=== PATIENT | female | born 1965 | race African-American/Black ===

== ENCOUNTER 2022-08-04 23:34 | Emergency (ER) | payer OTHER, SELFPAY ==
--- NOTE | ~2022-08-04 | CT_ITS ---
CT Abdomen and Pelvis with contrast. History: Coffee ground emesis. Spiral CT of the abdomen and pelvis was performed after the administration of intravenous contrast. 9 5 cc of Omnipaque 350 was administered intravenously without complication. Dose reduction technique w as used on this scan by utilizing automated exposure control and iterative reconstruction technique. The dose-length product (DLP) was 289.60 mGy-cm. Findings: Scans through the lung bases demonstrate mild atelectatic change. The liver, spleen, pancreas, and adrenal gland are within normal limits. Calcified gallstones are pre sent. Suspected patchy areas of decreased renal parenchymal enhancement bilaterally, suspicious for p yelonephritis. No evidence of aortic aneurysm. No lymphadenopathy is seen. There is no evidence of bowel obstruction. There is no evidence to suggest acute appendicitis or dive rticulitis. Images through the pelvis were performed. Urinary bladder unremarkable. DESKTOP SUPPORT CONSULTANT shunt catheter present mul tiple uterine fibroids are present, including an exophytic left-sided fibroid measuring 4.7 cm in gina meter.. No ascites is seen. Impression: Suspected bilateral pyelonephritis, versus possibly streak artifact related to patient's arms. Correl ate clinically and with urinalysis. Cholelithiasis. Multiple uterine fibroids. Reviewed, dictated and finalized at location M. RIOR DECORATOR Impression: Suspected bilateral pyelonephritis, versus possibly streak artifact related to patient's arms. Correlate clinically and with urinalysis. Cholelithiasis. Multiple uterine fibroids.
--- NOTE | ~2022-08-04 | XR_ITS ---
Portable chest x-ray Comparison: None Clinical History: Weakness Findings: UNDERWATER HUNTER TRAPPER shunt in place. Lungs are clear, without focal consolidation or pleural effusion. Card iomediastinal silhouette is unremarkable, with pacemaker device. Bones and soft tissues are unremarka ble. Impression: Clear lungs. UNDERWATER HUNTER TRAPPER shunt and pacemaker device. Reviewed, dictated and finalized at location . R FILLER Impression: Clear lungs. UNDERWATER HUNTER TRAPPER shunt and pacemaker device.
--- NOTE | ~2022-08-04 | CT_ITS ---
CT head without contrast Indication: Confusion Technique: Serial scans were obtained through the brain without the administration of contrast. Dose reduction technique was used on this scan by utilizing automated exposure control and iterative recon struction technique. The dose-length product (DLP) was 681.00 mGy-cm. Findings: There is no evidence of intracranial hemorrhage, mass lesion, or acute infarct. There is di ffuse ventricular system dilatation, with left ventriculostomy shunt catheter entering via left parie damir ruby hole. Multiple additional craniotomy defects are present. There is encephalomalacia of the r ight temporal lobe and in the bilateral cerebellar hemispheres medially. Additional probable focal en cephalomalacia in the right frontal lobe. There is a peripherally ossified area of central lucency in the left frontal region, subjacent to craniotomy defect. There is a 1.8 x 1.2 cm mildly hyperdense masslike area somewhat along the falx cerebri superiorly (a xial image 48). There is an additional 0.6 cm hyperdense mass along the left parietal inner table (ax ial image 42). There is amorphous hyperdensity possibly along the right falx tentorium measuring 2.0 x 1.2 cm (axial image 24). There are extensive low signal areas throughout the periventricular white matter bilaterally. There is no evidence of midline shift. The visualized paranasal sinuses and mas toid air cells are clear. Impression: Multiple hyperdense masses or areas, as detailed above, possibly extra-axial. Findings could reflect multiple meningiomas. Areas of hemorrhage or other mass lesions are not completely excluded. Pre and postcontrast MR advised to better evaluate. Correlation with relevant clinical history would also be useful, as there is evidence of multiple prior brain surgeries. Areas of presumed postsurgical encephalomalacia, as detailed above, with multiple craniotomy defects. Diffuse ventricular system dilatation with ventriculostomy shunt catheter. Probable chronic white matter changes, as above. Reviewed, dictated and finalized at location M. CTOR OF MUSIC THERAPY Impression: Multiple hyperdense masses or areas, as detailed above, possibly extra-axial. F indings could reflect multiple meningiomas. Areas of hemorrhage or other mass l esions are not completely excluded. Pre and postcontrast MR advised to better e valuate. Correlation with relevant clinical history would also be useful, as th ere is evidence of multiple prior brain surgeries. Areas of presumed postsurgical encephalomalacia, as detailed above, with multip le craniotomy defects. Diffuse ventricular system dilatation with ventriculostomy shunt catheter. Probable chronic white matter changes, as above.
[2022-08-04 23:35] VITALS: BP 138/73; PULSE 85; RESP 24; TEMP 36.8; O2SAT 100
--- NOTE | 2022-08-05 00:21 | PC.NURSE ---
This RN entered room to start IV. Pt sat up in bed and stated Im hungry. If I get some food Ill feel better . Pt A&Ox2, disoriented to time.
[2022-08-05] MEDS: SODIUM CHLORIDE 0.9% IV 1,000 ML 999 ML IV CONT (01:15)
[2022-08-05 01:23] LABS: Basophils Absolute Auto 0.1 K/mm3 (0.0-0.1); Basophils Percent Auto 0.6 % (0.2-1.2); Eosinophils Absolute Auto 0.1 K/mm3 (0-0.3); Eosinophils Percent Auto 0.6 % (0-4.4); Hematocrit 39.4 % (37.0-47.0); Hemoglobin 12.9 g/dL (12.0-15.0); Immature Granulocyte Absolute 0.04 K/mm3 (0.00-0.031); Immature Granulocyte Percent A 0.5 % (0-0.5); Lymphocytes Absolute Auto 1.46 K/mm3 (0.9-3.2); Lymphocytes Percent Auto 17.6 % (18.3-44.2); Mean Corpuscular HGB Conc 32.7 g/dl (32-36); Mean Corpuscular Hemoglobin 27.5 pg (26-34); Mean Platelet Volume 10.1 fl (7.4-10.4); Monocytes Absolute Auto 0.6 K/mm3 (0.1-0.6); Monocytes Percent Auto 7.2 % (2.6-8.5); Neutrophils Absolute Auto 6.1 K/mm3 (1.3-6.7); Neutrophils Percent Auto 73.5 % (45.5-73.1); Platelet Count Result 276 k/mm3 (150-375); Red Blood Count 4.69 M/mm3 (4.2-5.4); Red Cell Distribution Width 12.8 % (11.5-14.5); White Blood Count 8.3 K/mm3 (4.5-10.0)
[2022-08-05 01:33] LABS: Lactic Acid Reflex 1.2 mmol/L (0.7-2.0); Lipase 322 U/L (23-300); Magnesium 2.4 mg/dL (1.6-2.3)
[2022-08-05 01:37] LABS: Prothrombin Time 13.1 Seconds (11.1-14.7)
[2022-08-05 01:38] LABS: Partial Thromboplastin Time 30.1 SECONDS (22.3-36.8)
[2022-08-05 01:42] VITALS: BP 120/63; PULSE 90; RESP 22; O2SAT 98
[2022-08-05 01:46] LABS: Troponin I < 0.012 ng/mL (0.000-0.034)
--- NOTE | 2022-08-05 01:50 | PC.NURSE ---
Pt restless on stretcher, attempting to get out of bed, asking repeatedly for something to eat. Pt unable to be redirected. EDP notified.
[2022-08-05 01:54] LABS: Influenza A QL RT-PCR Negative (Negative); Influenza B QL RT-PCR Negative (Negative); SARS-CoV-2 RNA PCR Negative
[2022-08-05 01:56] LABS: Alanine Aminotransferase 19 U/L (6-35); Albumin Level 4.9 g/dL (3.5-5.1); Alkaline Phosphatase 77 U/L (38-126); Anion Gap 9 mmol/L (8-16); Aspartate Amino Transferase 21 U/L (14-36); Bilirubin,Total 0.5 mg/dL (0.2-1.3); Blood Urea Nitrogen 36 mg/dL (7-17); Calcium 9.8 mg/dL (8.4-10.2); Carbon Dioxide 26 mmol/L (22-30); Chloride 106 mmol/L (98-107); Estimated Glomerular Filt Rate > 60; Glucose 92 mg/dL (65-110); Potassium 4.5 mmol/L (3.4-5.0); Sodium 141 mmol/L (137-145)
[2022-08-05] MEDS: LORazepam INJ (*CRX) 2 MG/ML VIAL 1 MG IV PUSH (01:59)
[2022-08-05 02:02] LABS: Procalcitonin 0.1 ng/mL
--- NOTE | 2022-08-05 02:17 | ED.GENADULT ---
HPI - General Adult General Chief complaint: Nausea/Vomiting/Diarrhea Stated complaint: vomiting Time Seen by Provider: 08/04/22 23:48 History of Present Illness HPI narrative: Patient is a 57-year-old female that presents the emergency department with chief complaint of possible coffee-ground emesis patient is from a local nursing facility and is normally ANO x2 but does have episodes where she is not very responsive. The nursing facility thought that she vomited some material that looked as though it may contain coffee-ground material and sent the patient to the emergency department. The patient then became responsive and was saying that she was hungry. Related Data Allergies Allergy/AdvReac Type Severity Reaction Status Date / Time No Known Allergies Allergy Verified 08/05/22 01:58 Review of Systems Review of Systems: A 10 system review of systems was completed on the patient and is negative except for what is stated in the HPI. Nursing and ancillary documentation was reviewed. Exam Narrative: GENERAL: Well-appearing, well-nourished, and in no acute distress. HEAD: Normocephalic, atraumatic. EYES: PERRLA and EOMI. ENT: Nares clear, no rhinorrhea or epistaxis. Mucous membranes moist. NECK: Supple. CHEST: Clear to auscultation. No respiratory distress. HEART: Regular rate and rhythm. No murmur heard. Normal peripheral pulses. ABDOMEN: Soft, nontender, nondistended, normal active bowel sounds. PEG tube in place EXTREMITIES: Normal range of motion. No edema. SKIN: Warm, dry, no rash. NEURO: No focal deficits. Alert and oriented x1. PSYCH: Normal mood and affect. Course Course Emergency Course: Past history and current history was obtained from records as the patient was unable to provide information. The patient's PEG tube was aspirated and there was no evidence of blood or coffee-ground material in the stomach. The patient is currently at her baseline neurological status Laboratory studies were reviewed the patient had a normal white blood cell count and a hemoglobin of 12.9. Electrolytes showed a creatinine of 1.1 lipase was 322 procalcitonin is 0.1. Patient is negative for influenza and COVID Chest x-ray interpreted by me shows no focal infiltrates. If the change in mental status a CT head was ordered also due to the vomiting a CT scan of the abdomen pelvis was ordered Differential diagnosis includes GI bleed, bowel obstruction, pneumonia, UTI viral syndrome, Vital Signs Vital signs: Vital Signs Temperature 36.8 C 08/04/22 23:35 Pulse Rate 85 08/04/22 23:35 Respiratory Rate 24 H 08/04/22 23:35 Blood Pressure 138/73 08/04/22 23:35 Pulse Oximetry 100 08/04/22 23:35 Oxygen Delivery Room Air 08/04/22 23:35 Temperature 36.8 C 08/04/22 23:35 Pulse Rate 95 08/05/22 06:18 Respiratory Rate 19 08/05/22 06:18 Blood Pressure 142/64 H 08/05/22 06:18 Pulse Oximetry 100 08/05/22 05:19 Oxygen Delivery Room Air 08/04/22 23:35 Medical Decision Making MDM Narrative Medical decision making narrative: Patient was sent in for possible coffee-ground emesis. Laboratory studies showed a normal hemoglobin patient is currently at her baseline neurological status CT scan of the abdomen pelvis with possible pyelonephritis but the patient does have a normal urinalysis Chest x-ray shows no evidence of focal infiltrate CT head shows evidence of prior injury and RUBBING BED OPERATOR shunt. At this time the patient is at her baseline and the patient be discharged back to nursing facility Differential diagnosis includes bowel obstruction, GI bleed, pneumonia, UTI, sepsis, viral infection. Vital Signs Vital Signs: Vital Signs Temperature 36.8 C 08/04/22 23:35 Pulse Rate 85 08/04/22 23:35 Respiratory Rate 24 H 08/04/22 23:35 Blood Pressure 138/73 08/04/22 23:35 Pulse Oximetry 100 08/04/22 23:35 Oxygen Delivery Room Air 08/04/22 23:35 Temperature 36.8 C
[2022-08-05 02:43] VITALS: BP 122/56; PULSE 81; RESP 21; O2SAT 100
[2022-08-05 03:53] VITALS: BP 138/53; PULSE 81; RESP 20; O2SAT 100
--- NOTE | 2022-08-05 04:52 | PC.NURSE ---
This RN entered room to straight cath pt. While setting up for procedure, pt urinated in bed.
[2022-08-05 05:19] VITALS: PULSE 87; RESP 19; O2SAT 100
[2022-08-05 05:38] LABS: Appearance Urine Clear (Clear); Bilirubin Urine Negative (Negative); Blood Urine Trace-intact (Negative); Color Urine Yellow (Yellow); Glucose Urine UA Negative (Negative); Ketones Urine Negative (Negative); Leukocyte Esterase Ur Negative LEU/UL (Negative); Nitrate Urine Negative (Negative); Protein Urine Negative (Negative); Specific Grav Ur <= 1.005 (1.001-1.035); Urobilinogen Urine 0.2 mg/dL (<2.0)
[2022-08-05 05:39] LABS: WBC Urine 0-3 /hpf
[2022-08-05 06:07] LABS: Add Urine Microscopic? YES
[2022-08-05 06:18] VITALS: BP 142/64; PULSE 95; RESP 19
[2022-08-05 07:55] VITALS: BP 136/61; PULSE 91; RESP 20; O2SAT 96
== END 2022-08-05 08:49 ==
PROVIDERS: Emergency Provider Emergency Medicine; PCP Otolaryngology
DX: R11.2 Nausea with vomiting, unspecified (principal); Z20.822 Contact with and (suspected) exposure to COVID-19
CPT/HCPCS: 36415; 51701; 70450; 71045; 74177; 80053; 81001; 83605; 83690; 83735; 84145; 84484; 85025; 85610; 85730; 87636; 96361; 96374; 99284; J2060; J7030; Q9967

== ENCOUNTER 2022-08-08 14:21 | Inpatient (IN) | payer OTHER, SELFPAY ==
[2022-08-08] VITALS (35 sets, daily range): BP systolic 105–140; BP diastolic 43–60; PULSE 84–97; RESP 11–26; TEMP 36.2–36.9; O2SAT 99–100; BMI 17.4
--- NOTE | ~2022-08-08 | US_ITS ---
EXAMINATION: US renal BI DATE: 08/08/2022 22:35 INDICATION: Right kidney mass. TECHNIQUE: Multiple ultrasound grayscale images of the kidneys were obtained. COMPARISON: CT abdomen and pelvis 08/08/2022 FINDINGS: The right kidney measures 6.4 x 3.5 x 3.4 cm. The left kidney measures 7.5 x 4.2 x 5.0 cm. The kidney s demonstrate increased parenchymal echogenicity, consistent with nephropathy. There is no hydronephr osis. The bladder is normal. IMPRESSION: 1. Right kidney mass not identified. Abdomen CT without and with contrast is recommended. 2. Moderate atrophy of right kidney and mild atrophy of left kidney. Reviewed, dictated and finalized at location A. R TEACHER IMPRESSION: 1. Right kidney mass not identified. Abdomen CT without and with contrast is r ecommended. 2. Moderate atrophy of right kidney and mild atrophy of left kidney.
--- NOTE | ~2022-08-08 | XR_ITS ---
XR chest 1V 08/08/2022 14:54 Indication: Altered mental status Procedure: AP view of the chest Comparison: 08/05/2022 Findings: Borderline heart size. There is a catheter overlying the left thorax, possibly ventriculope ritoneal. Pacemaker leads in expected position. No focal air space disease, pulmonary edema, pleural effusion or suspected pneumothorax. Impression: 1: No acute cardiopulmonary disease. Reviewed, dictated and finalized at location L. FACTURING MANAGER Impression: 1: No acute cardiopulmonary disease.
--- NOTE | ~2022-08-08 | XR_ITS ---
EXAMINATION: XR shunt series DATE: 08/08/2022 19:04 INDICATION: Altered mental status. TECHNIQUE: 7 views of a shunt series were obtained. COMPARISON: CT abdomen and pelvis 08/05/2022, head CT 08/08/2022 FINDINGS: There is a left-sided ventriculoperitoneal shunt with tip in the lower abdomen. No kink or break in the radiopaque portion. There is a left chest wall pacer with leads in the right atrium and right ventricle. There are changes of craniotomy. IMPRESSION: 1. Intact ventriculoperitoneal shunt. Reviewed, dictated and finalized at location A. CAL ASSISTANT PER DIEM
--- NOTE | ~2022-08-08 | CT_ITS ---
CT head without contrast Indication: Altered mental status COMPARISON: 08/05/2022 Technique: Serial scans were obtained through the brain without the administration of contrast. Dose reduction technique was used on this scan by utilizing automated exposure control and iterative recon struction technique. The dose-length product (DLP) was 605.33 mGy-cm. Findings: There is no evidence of intracranial hemorrhage, mass lesion, or acute infarct. Right tempo ral lobe encephalomalacia is stable, with right temporal cranial. There is stable encephalomalacia in the bilateral medial cerebellar hemispheres, and in the high bilateral parietal lobes, unchanged. St able ventriculostomy shunt catheter. Stable peripherally ossified or calcified lesion along the inner table of the left frontal bone. Stable amorphous area of hyperdensity just anterior to the right fal x tentorium, and along the falx cerebri posteriorly superiorly, and along the left parietal convexity . The ventricles and subarachnoid spaces are dilated, consistent with moderate to severe atrophy. Low attenuation regions are seen within the periventricular white matter bilaterally, likely representing changes from chronic microvascular ischemic disease. Right frontal craniotomy change is stable from prior exam. There is no evidence of edema, mass effect or midline shift. The visualized paranasal s inuses and mastoid air cells are clear. Impression: No acute abnormality clearly evident. Stable amorphous hyperdense areas, suggestive of multiple small meningiomas. Please see details from recent prior exam dated 08/05/2022. Multiple stable areas of encephalitis should, as detailed above. Ventriculostomy shunt catheter is un changed. Atrophy and chronic white matter changes, as above. Reviewed, dictated and finalized at location . NATION INSPECTOR Impression: No acute abnormality clearly evident. Stable amorphous hyperdense areas, suggestive of multiple small meningiomas. Pl ease see details from recent prior exam dated 08/05/2022. Multiple stable areas of encephalitis should, as detailed above. Ventriculostom y shunt catheter is unchanged. Atrophy and chronic white matter changes, as above.
--- NOTE | ~2022-08-08 | CT_ITS ---
EXAMINATION: CT abdomen pelvis w con DATE: 08/08/2022 20:23 INDICATION: Decreased oral intake. TECHNIQUE: Computed tomography (CT) of the abdomen and pelvis was performed with 90 mL Omnipaque 350 intravenous contrast. Automated exposure control and iterative reconstruction technique were employed . The dose-length product was 240.19 mGy-cm. COMPARISON: CT abdomen and pelvis 08/05/2022 FINDINGS: The visualized portions of the lung bases demonstrate mild atelectasis. No pleural effusion . The heart size is normal. There are pacer wires in right atrium and right ventricle. No pericardial effusion. There is a 4 mm cyst in the liver. Right hepatic lobe is small. There is a gastrostomy tub e in expected position. There are gallstones in the gallbladder, which is normal in size. The spleen, pancreas, and adrenal glands are normal. There is mild atrophy of the kidneys. There is a 19 mm cyst in left kidney. There is a 12 mm mass in right kidney measuring soft tissue attenuation. There are m ultiple uterine fibroids. There is an intraperitoneal shunt. There are no dilated loops of bowel. The appendix is not visualized. There are no pathologically enlarged lymph nodes. There is no free intra peritoneal fluid. The bones demonstrate osteopenia. IMPRESSION: 1. Cholelithiasis. 2. Mild atrophy of the kidneys. 3. 12 mm right kidney mass, which may be a hemorrhagic cyst or less likely a neoplasm. Ultrasound is recommended. Reviewed, dictated and finalized at location A. ILE MECHANIC IMPRESSION: 1. Cholelithiasis. 2. Mild atrophy of the kidneys. 3. 12 mm right kidney mass, which may be a hemorrhagic cyst or less likely a ne oplasm. Ultrasound is recommended.
--- NOTE | ~2022-08-08 | US_ITS ---
EXAMINATION: US carotid duplex BI DATE: 08/09/2022 12:09 INDICATION: Neurological signs and symptoms TECHNIQUE: Grayscale, color Doppler, and pulsed Doppler images of the cervical carotid arteries were obtained. The degree of vessel stenosis is placed in one of the following categories: normal, <50%, 5 0-69%, >=70% but less than near-occlusion, near-occlusion, or total occlusion. Note that percent sten osis relative to normal distal artery lumen diameter is indirectly measured from velocity measurement s as described by Fish, et al. Radiology 2003; 229:340-346. Notes: Normal: Peak systolic velocity <125 centimeters/sec and no plaque <50%. Peak systolic velocity <125 ( EDV <40; ICA/CCA PSV ratio <2.0; used these factors only a tandem lesions or low cardiac output or co ntralateral disease) 50-69 %: PSV 125-230 (EDV 40-100; ratio 2-4) >= 70% but less than near occlusion: PSV greater than 230 (EDV > 100; ratio> 4.0) Near Occlusion: PSV that is variable; markedly narrowed lumen Occlusion: Absent flow on color/spectral Doppler and no lumen on hernandez scale. COMPARISON: None. FINDINGS: RIGHT: The right common carotid artery (CCA) peak systolic velocity (PSV) is 85 cm/s. The right internal car otid artery (ICA) PSV is 63 cm/s. The right ICA end-diastolic velocity (EDV) is 14 cm/s. The right IC A/CCA PSV ratio is 0.7. The external carotid artery (ECA) PSV is 126 cm/s. There is antegrade flow in the right vertebral artery. LEFT: The left CCA PSV is 92 cm/s. The left ICA PSV is 61 cm/s. The left ICA EDV is 14 cm/s. The left ICA/C CA PSV ratio is 0.7. The ECA PSV is 79 cm/s. There is antegrade flow in the left vertebral artery. IMPRESSION: 1. Less than 50% stenosis in the right internal carotid artery by sonographic criteria. 2. Less than 50% stenosis in the left internal carotid artery by sonographic criteria. Reviewed, dictated and finalized at location B. LY DEVELOPMENT SPECIALIST IMPRESSION: 1. Less than 50% stenosis in the right internal carotid artery by sonographic nellie maynard. 2. Less than 50% stenosis in the left internal carotid artery by sonographic nighat singh.
--- NOTE | 2022-08-08 14:17 | ED.AMS ---
HPI - Altered Mental Status General Chief Complaint: Neuro Symptoms/Deficit Stated Complaint: lethargic and responsive to painful stimuli only Source: EMS Mode of arrival: EMS Limitations: altered mental status and clinical condition History of Present Illness HPI narrative: Patient is a 57-year-old female with a history of brain tumor, G-tube dependent, presenting to the emergency department for evaluation of decreased responsiveness, lethargy from [facility]. Patient was seen previously for similar symptoms last week. At that point, she was noted to have nausea, coffee-ground emesis with concern for upper GI bleed but ultimately work-up was negative and patient was discharged back to facility. Per EMS, vital signs were stable in route. Patient was minimally responsive to verbal stimuli but responsive to painful stimuli. At the time of my assessment, patient is able to state her name and identify she is at a hospital. She denies any acute complaints but states that she generally feels unwell. She denies headache or abdominal pain. Her left conjunctiva appears erythematous with drainage. Patient is alert and oriented to person and place. Related Data Allergies Allergy/AdvReac Type Severity Reaction Status Date / Time No Known Allergies Allergy Verified 08/05/22 01:58 Review of Systems Review of Systems: ROS unobtainable: Yes unobtainable due to medical condition and unobtainable due to mental status Exam Narrative: GENERAL: Thin, chronically ill-appearing, eyes closed on bed, does respond to verbal stimuli HEAD: Normocephalic, atraumatic. EYES: PERRLA and EOMI. ENT: Nares clear, no rhinorrhea or epistaxis. Mucous membranes dry. NECK: Supple. CHEST: No respiratory distress, breathing even and non labored HEART: Regular rate, sinus rhythm ABDOMEN:Non distended, non tender; G-tube in place, no discarded tissue, no rebound, rigidity or guarding EXTREMITIES: Normal range of motion. No edema. SKIN: Warm, dry, no rash. NEURO:No focal deficits. Alert and oriented x2 Course Vital Signs Vital signs: Vital Signs Pulse Rate 85 08/08/22 14:26 Respiratory Rate 15 08/08/22 14:26 Temperature 36.8 C 08/08/22 14:39 Pulse Rate 89 08/08/22 17:31 Respiratory Rate 17 08/08/22 17:31 Blood Pressure 139/54 L 08/08/22 17:31 Pulse Oximetry 100 08/08/22 17:31 Oxygen Delivery Room Air 08/08/22 14:30 MDM - Altered Mental Status MDM Narrative Medical decision making narrative: Medical decision making narrative: -Presentation: Patient presenting for evaluation of lethargy, decreased oral intake from her baseline per care facility. I did speak with the nurse at [facility] who states this has been a significant status change in the patient who does not really utilize her G-tube and takes most of her food by mouth. The time of assessment, patient is alert and oriented to person and place. She is hemodynamically stable. No significant tachycardia. Mild hypertension. -DDX includes but is not limited to: Sepsis, delirium, acute intracranial abnormality, meningitis, encephalitis,, electrolyte derangement -Co-morbidities complicating care: History of craniotomy, OUTSOLE COMPRESSOR shunt -Social determinants of health: Poor health literacy -External Chart Review: External EMR record reviewed, reviewed records from [facility], [facility] -Hx from independent Sources: Spoke with [facility] nurse -Discussion of Management/Consultants: Discussed with hospitalist, discussion with neurosurgery attending Dr. Tam at [facility] with whom the patient has followed with in the past, we discussed the patient's imaging studies, presenting symptoms, they agree the patient may stay at this facility -Independent interpretation of studies: X-ray without acute cardiopulmonary abnormality -Interventions:IV fluids administered, antiemetic -Jimenez
--- NOTE | 2022-08-08 14:29 | ECG_ITS ---
Measurements Intervals [place] Rate: 87 P: 63 NE: 169 QRS: 18 QRSD: 88 T: 51 QT: 352 QTc: 424 Interpretive Statements SINUS RHYTHM SEPTAL MYOCARDIAL INFARCTION , OF INDETERMINATE AGE [40+ ms Q WAVE IN V1/V2] ABNORMAL ECG NO PREVIOUS ECG AVAILABLE FOR COMPARISON Electronically Signed On 08-08-2022 15:12:26 MANAGER SPECIAL EVENTS by Lonnie Rojas M.D.
--- NOTE | 2022-08-08 14:39 | PC.NURSE ---
VSS -- Pt off floor to CT scan
[2022-08-08 15:00] LABS: Glucose Point of Care 93 mg/dl (65-105)
--- NOTE | 2022-08-08 16:32 | PC.NURSE ---
Multiple attempts from two nurses and two techs attempted for labs without success. Spoke with phlebotomy Elo and she will come to see patient.
[2022-08-08 16:59] LABS: Influenza A QL RT-PCR Negative (Negative); Influenza B QL RT-PCR Negative (Negative); RSV RNA, RT-PCR Negative (Negative); SARS-CoV-2 RNA PCR Negative
[2022-08-08 17:07] LABS: Basophils Absolute Auto 0.1 K/mm3 (0.0-0.1); Basophils Percent Auto 0.6 % (0.2-1.2); Eosinophils Absolute Auto 0.1 K/mm3 (0-0.3); Eosinophils Percent Auto 0.7 % (0-4.4); Hematocrit 48.4 % (37.0-47.0); Hemoglobin 15.7 g/dL (12.0-15.0); Immature Granulocyte Absolute 0.04 K/mm3 (0.00-0.031); Immature Granulocyte Percent A 0.4 % (0-0.5); Lymphocytes Absolute Auto 1.49 K/mm3 (0.9-3.2); Lymphocytes Percent Auto 13.1 % (18.3-44.2); Mean Corpuscular HGB Conc 32.4 g/dl (32-36); Mean Corpuscular Hemoglobin 27.6 pg (26-34); Mean Corpuscular Volume 85.1 fl (80-100); Mean Platelet Volume 10.2 fl (7.4-10.4); Monocytes Absolute Auto 0.7 K/mm3 (0.1-0.6); Monocytes Percent Auto 6.3 % (2.6-8.5); Neutrophils Percent Auto 78.9 % (45.5-73.1); Platelet Count Result 249 k/mm3 (150-375); Red Blood Count 5.69 M/mm3 (4.2-5.4); Red Cell Distribution Width 13.3 % (11.5-14.5); White Blood Count 11.4 K/mm3 (4.5-10.0)
[2022-08-08 17:12] LABS: Ammonia 21 umol/L (9-30)
[2022-08-08 17:22] LABS: Alanine Aminotransferase 16 U/L (6-35); Albumin Level 5.3 g/dL (3.5-5.1); Alkaline Phosphatase 103 U/L (38-126); Anion Gap 17 mmol/L (8-16); Aspartate Amino Transferase 22 U/L (14-36); Bilirubin,Total 0.9 mg/dL (0.2-1.3); Blood Urea Nitrogen 64 mg/dL (7-17); CRP 0.8 mg/dL (<1.0); Calcium 10.3 mg/dL (8.4-10.2); Carbon Dioxide 19 mmol/L (22-30); Chloride 115 mmol/L (98-107); Creatine Kinase 90 U/L (30-135); Estimated Glomerular Filt Rate 44; Glucose 112 mg/dL (65-110); Potassium 4.4 mmol/L (3.4-5.0); Sodium 151 mmol/L (137-145)
[2022-08-08] MEDS: SODIUM CHLORIDE 0.9% IV 1,000 ML 999 ML IV CONT ×2 (17:33→21:45)
[2022-08-08 17:46] LABS: Lactic Acid Reflex 2.5 mmol/L (0.7-2.0)
[2022-08-08 17:55] LABS: Appearance Urine Clear (Clear); Bilirubin Urine 2+ (Negative); Blood Urine Negative (Negative); Color Urine Yellow (Yellow); Glucose Urine UA Negative (Negative); Ketones Urine 1+ mg/dL (Negative); Leukocyte Esterase Ur Negative LEU/UL (Negative); Nitrate Urine Negative (Negative); Protein Urine 1+ mg/dL (Negative); Urobilinogen Urine 0.2 mg/dL (<2.0)
[2022-08-08 18:00] LABS: Mucus Urine Rare /lpf; RBC Urine 0-2 /hpf (0-2); Squamous Epithelial Cell Urine Rare /hpf (Few); WBC Urine 0-3 /hpf
[2022-08-08 18:04] LABS: Add Urine Microscopic? YES
[2022-08-08 18:16] LABS: Troponin I < 0.012 ng/mL (0.000-0.034)
--- NOTE | 2022-08-08 18:38 | PM.IMHP ---
H&P: HPI History of Present Illness Date/Time: 08/08/22 18:38 Chief Complaint: Neurological deficit Narrative: PE this is a 57-year-old female patient has a history of brain tumor and G-tube dependent. The patient came to the emergency room with evaluation of decreased responsiveness and lethargy. The patient comes from [facility]. She had previous plea had the similar symptoms a week ago. The patient had an upper GI workup last week and was essentially found to be negative. The patient is minimally responsive to verbal stimuli. The patient was able to state her name and identify that she was at the hospital when she 1st came in. The patient was orientated to person and place when she initially came in. The patient was very lethargic when I assessed her in the emergency room. Her white count was noted to be 11.4. H&H is 15.7 and 48.4. Her creatinine is 1.5 with her last creatinine of 1.1 3 days ago. Her lactic is 2.5 and repeat is 2.2. Calcium is 10.3. The patient appears to be dry. The patient is negative for influenza A/B RSV and COVID. The patient was given IV fluids, Reglan, and Benadryl. Abdominal pelvis CT was read as cholelithiasis mild atrophy of the kidneys. 12 mm right kidney mass which may be a hemorrhagic cyst or least likely a neoplasm ultrasound is recommended. Imaging shunt series intact DIRECTOR PRODUCT shunt. Head CT was read as the following No acute abnormality clearly evident. Stable amorphous hyperdense areas, suggestive of multiple small meningiomas. Please see details from recent prior exam dated 08/05/2022. Multiple stable areas of encephalitis should, as detailed above. Ventriculostomy shunt catheter is unchanged. Atrophy and chronic white matter changes, as above. The patient is being admitted to observation status on the date of service of 08/08/2022. Review of Systems Review of Systems: See HPI All systems reviewed & are unremarkable except as noted in HPI and below Constitutional: Constitutional: Reports as per HPI and Reports no additional constitutional complaints Eyes: Eyes: Reports as per HPI and Reports no additional eye complaints ENT: Reports system reviewed and no additional complaints, except as documented and Reports Normal hearing present Cardiovascular: Cardiovascular: Reports no additional cardiovascular complaints Respiratory: Respiratory: Reports no additional respiratory complaints and Reports no additional respiratory complaints Gastrointestinal: Gastrointestinal: Reports as per HPI and Reports no additional gastrointestinal complaints Musculoskeletal: Musculoskeletal: Reports no additional musculoskeletal complaints Integumentary/Breasts: Skin/Breast: Reports system reviewed and no additional complaints, except as docu and Reports as per HPI Neurologic: Reports system reviewed and no additional complaints, except as documented, Reports as per HPI and Reports Normal hearing present Psychiatric: Psychiatric: Reports no additional psychiatric complaints and Reports as per HPI Endocrine: Endocrine: Reports no additional endocrine complaints Hematologic/Lymphatic: Hematologic/Lymphatic: Reports no additional hematologic/lymphatic complaints Allergic/Immunologic: Allergic/Immunologic: Reports no additional allergic/immunologic complaints [facility] Past Medical History Medical History (Updated 08/08/22 @ 22:20 by Salud Martinez NP) Anemia of chronic disease Cholelithiasis Chronic GERD Depression with anxiety Gastrostomy tube dependent Seizure disorder Uterine fibroid Surgical History Surgical History (Updated 08/08/22 @ 22:20 by Salud Martinez NP) H/O abdominal surgery History of appendectomy S/P ORIF (open reduction internal fixation) fracture Left elbow S/P DIRECTOR PRODUCT shunt Family History Family History (Updated 08/08/22 @ 22:20 by Salud Martinez NP) Unknown No problems noted. Social History Social History (Updated 08/08/22 @ 22:21 by Salud Paul
--- NOTE | 2022-08-08 18:41 | PC.NURSE ---
Pt off floor to radiology.
[2022-08-08 20:31] LABS: Reflex Lactic Acid Yes or No Add Lactic
--- NOTE | 2022-08-08 21:22 | ADMGEN ---
This patient, Deb Matos, was admitted to Medical Room 245-. Patient/family oriented to hospital policies and general routines including ID bracelet, bed and alarms, visiting hours, pain management, procedures, bathroom and other care routines, personal items, smoking policy, room service/diet, and visiting hours. Information on how to activate the Rapid Response Team has been discussed. Patient/Family are encouraged to report perceived risks to care and to ask questions if they do not understand what they are told or what they should do.
[2022-08-08 21:30] LABS: Lactic Acid 2.2 mmol/L (0.7-2.0)
[2022-08-08] MEDS: LACTATED RINGERS 1,000 ML 125 ML IV CONT (21:54)
[2022-08-08 22:20] LABS: INR 1.9; Prothrombin Time 20.8 Seconds (11.1-14.7)
[2022-08-08 22:21] LABS: Partial Thromboplastin Time 59.4 SECONDS (22.3-36.8)
[2022-08-08] MEDS: levETIRAcetam ORAL SOL 500 MG/5 ML UDC 1000 MG FEED TUBE (23:40)
[2022-08-08] MEDS: SODIUM CHLORIDE 0.9% IV 1,000 ML 100 ML IV CONT (23:40)
[2022-08-09] VITALS (9 sets, daily range): BP systolic 124–140; BP diastolic 47–54; PULSE 66–91; RESP 12–18; TEMP 36.4–36.8; O2SAT 90–100; BMI 17.4
--- NOTE | 2022-08-09 | ECHO_ITS ---
Patient Info Name: Deb Matos Age: 57 years : 1965 Gender: Female Ht: 63 in Wt: 98 lbs BSA: 1.40 m2 HR: 66 bpm BP: 140 / 54 mmHg Technical Quality: Good Exam Date: 08/09/2022 1:30 PM Exam Location: [facility] Pulmonary Exam Room: 245 Patient Status: Inpatient Admit Date: 08/09/2022 Staff Ordering Physician: Salud Martinez NP Helicopter Utility Aircrewman: Macie Mora RDCS Attending Provider: Jennifer Jaffe PA-C Referring Physician: Juan ODONNELL; Exam Type: CA echo doppler color flow Study Info Indications - neuro ss Complete two-dimensional, color flow and Doppler transthoracic echocardiogram is performed. Summary 1. Complete two-dimensional, color flow and Doppler transthoracic echocardiogram is performed. 2. Left ventricular chamber dimension is normal. 3. Left ventricular systolic function is normal, estimated at 65-70%. 4. The left ventricular diastolic function is grade I diastolic dysfunction. 5. E/e' 8 is minimally elevated. 6. Linear artifact in right ventricle suggestive of catheter(s), pacemaker lead(s), or ICD lead(s). 7. Linear artifact in the right atrium suggestive of catheter(s), pacemaker lead(s), or ICD lead(s). 8. There is moderate aortic valve sclerosis. 9. There is mild to moderate tricuspid valve regurgitation. 10. Mild pulmonary hypertension, estimated pulmonary arterial systolic pressure is 48 mmHg. Left Ventricle E/e' 8 is minimally elevated. Left ventricular chamber dimension is normal. Left ventricular systolic function is normal, estimated at 65-70%. The left ventricular diastolic function is grade I diastolic dysfunction. Right Ventricle Linear artifact in right ventricle suggestive of catheter(s), pacemaker lead(s), or ICD lead(s). Right ventricular chamber dimension is normal. Right ventricular systolic function is normal. Left Atria Left atrial chamber dimension is normal. Right Atria Linear artifact in the right atrium suggestive of catheter(s), pacemaker lead(s), or ICD lead(s). Right atrial chamber dimension is normal. Aortic Valve The aortic valve is probable trileaflet. There is moderate aortic valve sclerosis. There is no aortic valve stenosis. There is no aortic valve regurgitation. Pulmonic Valve There is no pulmonic regurgitation. Mitral Valve There is no mitral valve stenosis. There is no mitral valve regurgitation. Tricuspid Valve There is mild to moderate tricuspid valve regurgitation. Mild pulmonary hypertension, estimated pulmonary arterial systolic pressure is 48 mmHg. Pericardium/Pleural There is no pericardial effusion. Inferior Vena Cava Normal inferior vena cava with >50% collapse upon inspiration consistent with normal right atrial pressure, 5 mmHg. Aorta The aortic root size at the sinus of Valsalva is normal. Left Ventricular Outflow Tract Name Value Normal LVOT 2D LVOT Diameter 2.0 cm LVOT Doppler LVOT Peak Gradient 3 mmHg LVOT Mean Gradient 2 mmHg LVOT VTI 20 cm LVOT VTI/AV VTI Ratio
[2022-08-09 05:14] LABS: Basophils Absolute Auto 0.1 K/mm3 (0.0-0.1); Basophils Percent Auto 0.6 % (0.2-1.2); Eosinophils Absolute Auto 0.1 K/mm3 (0-0.3); Eosinophils Percent Auto 1.5 % (0-4.4); Hematocrit 39.9 % (37.0-47.0); Hemoglobin 12.8 g/dL (12.0-15.0); Immature Granulocyte Absolute 0.03 K/mm3 (0.00-0.031); Immature Granulocyte Percent A 0.4 % (0-0.5); Lymphocytes Absolute Auto 1.47 K/mm3 (0.9-3.2); Lymphocytes Percent Auto 18.4 % (18.3-44.2); Mean Corpuscular HGB Conc 32.1 g/dl (32-36); Mean Corpuscular Hemoglobin 27.7 pg (26-34); Mean Corpuscular Volume 86.4 fl (80-100); Mean Platelet Volume 10.6 fl (7.4-10.4); Monocytes Absolute Auto 0.6 K/mm3 (0.1-0.6); Monocytes Percent Auto 7.8 % (2.6-8.5); Neutrophils Absolute Auto 5.7 K/mm3 (1.3-6.7); Neutrophils Percent Auto 71.3 % (45.5-73.1); Platelet Count Result 213 k/mm3 (150-375); Red Blood Count 4.62 M/mm3 (4.2-5.4); Red Cell Distribution Width 13.2 % (11.5-14.5)
[2022-08-09 05:27] LABS: Lactic Acid Reflex 1.2 mmol/L (0.7-2.0)
[2022-08-09 05:30] LABS: Alanine Aminotransferase 14 U/L (6-35); Albumin Level 4.3 g/dL (3.5-5.1); Alkaline Phosphatase 77 U/L (38-126); Anion Gap 7 mmol/L (8-16); Aspartate Amino Transferase 17 U/L (14-36); Bilirubin,Total 0.7 mg/dL (0.2-1.3); Blood Urea Nitrogen 41 mg/dL (7-17); Carbon Dioxide 23 mmol/L (22-30); Chloride 123 mmol/L (98-107); Estimated CRCL calculation 36 ml/min; Estimated Glomerular Filt Rate > 60; Glucose 89 mg/dL (65-110); Magnesium 2.4 mg/dL (1.6-2.3); Potassium 4.6 mmol/L (3.4-5.0); Sodium 153 mmol/L (137-145)
[2022-08-09 05:56] LABS: Thyroid Stimulating Hormone Reflex 0.118 uIU/mL (0.465-4.68)
--- NOTE | 2022-08-09 06:16 | PC.NURSE ---
[id number] CALLED NOAM FERNANDEZ FOR MRI CONSENT. NO ANSWER MESSAGE LEFT.
--- NOTE | 2022-08-09 06:41 | P.PNIM_ITS ---
Progress Note: A&P Assessment and Plan (1) Change in mental status: Code(s): R41.82 - Altered mental status, unspecified Status: Acute Assessment and Plan: Patient presented from nursing facility due to decreased responsiveness and lethargy * Head CT with no acute findings with stable areas of encephalomalacia * GAS COMPRESSOR TURBINE OPERATOR shunt imaging reveals intact shunt * Patient does have seizure disorder history although no witnessed seizure. Post-ictal state could be contributing to symptoms. EEG is pending * Appreciate neurology consultation * Management of electrolyte abnormalities as described below * Patient is G-tube dependent but apparently has been doing oral feedings. Aspiration considered however CXR with no acute findings and no clinical indicators of infection * No evidence of infectious source * TSH is abnormal, low. T4 pending. Follow T4 and initiate therapy as indicated. * Ammonia within normal limits (2) Acute hypernatremia: Code(s): E87.0 - Hyperosmolality and hypernatremia Status: Acute Assessment and Plan: Suspect due to dehydration * Sodium 151 on presentation and has increased to 154 today * Received LR in the ED and transitioned to NS overnight * Will transition to D5W at 60 ml/hr and trend sodium q6h * Goal to decrease sodium by no more than 10 points in 24 hours * Hold sodium-phosphate supplementation (13 mEq sodium) (3) Acute dehydration: Code(s): E86.0 - Dehydration Status: Acute Assessment and Plan: Likely due to the fact patient has not been utilizing G-tube and doing feedings by mouth. Likely not enough water intake * Plan for rehydration as above * Will resume tube feedings with free water flushes per dietary (4) Gastrostomy tube dependent: Code(s): Z93.1 - Gastrostomy status Status: Acute Assessment and Plan: See above. * Resume tube feedings per dietary recommendations (5) Seizure disorder: Code(s): G40.909 - Epilepsy, unspecified, not intractable, without status epilepticus Status: Chronic Assessment and Plan: No witnessed seizure activity * Continue Keppra per G-tube * EEG pending as above (6) Abnormal finding of kidney: Code(s): R39.9 - Unspecified symptoms and signs involving the genitourinary system Status: Acute Assessment and Plan: CT of the abd/pelvis showed 12 mm right kidney mass * Follow up ultrasound did not reveal a mass * CT with and without contrast recommended for follow up. Will defer at this time. Consider outpatient follow up. * Renal function is stable. Creatinine 1.1 Subjective Date/time seen: 08/09/22 06:41 Interval history: Date of service: 08/09/2022 Deb Matos is a 57-year-old female with a history of brain tumor, seizure disorder, gastrostomy tube dependence, chronic anemia, GERD, cholelithiasis who presented from her nursing facility due to decreased responsiveness and lethargy. the patient is unable to provide any history. She is lying curled in bed and covering her face. She does arouse to verbal stimuli but does not open her eyes even when asked to do so repeatedly. She did not allow me to gently pull her eyelids up and instead turned her head further into her pillow. She groaned or grunted in response to most questions but did state her name. When asked where we were she stated You know. Stop. Not able to obtain any additional history. Review of Systems Review of Systems: All systems reviewed & are unremarkable except as noted
--- NOTE | 2022-08-09 06:41 | PM.IMPN ---
Progress Note: A&P Assessment and Plan (1) Change in mental status: Code(s): R41.82 - Altered mental status, unspecified Status: Acute Assessment and Plan: Patient presented from nursing facility due to decreased responsiveness and lethargy Head CT with no acute findings with stable areas of encephalomalacia VALUE STREAM COACH shunt imaging reveals intact shunt Patient does have seizure disorder history although no witnessed seizure. Post-ictal state could be contributing to symptoms. EEG is pending Appreciate neurology consultation Management of electrolyte abnormalities as described below Patient is G-tube dependent but apparently has been doing oral feedings. Aspiration considered however CXR with no acute findings and no clinical indicators of infection No evidence of infectious source TSH is abnormal, low. T4 pending. Follow T4 and initiate therapy as indicated. Ammonia within normal limits (2) Acute hypernatremia: Code(s): E87.0 - Hyperosmolality and hypernatremia Status: Acute Assessment and Plan: Suspect due to dehydration Sodium 151 on presentation and has increased to 154 today Received LR in the ED and transitioned to NS overnight Will transition to D5W at 60 ml/hr and trend sodium q6h Goal to decrease sodium by no more than 10 points in 24 hours Hold sodium-phosphate supplementation (13 mEq sodium) (3) Acute dehydration: Code(s): E86.0 - Dehydration Status: Acute Assessment and Plan: Likely due to the fact patient has not been utilizing G-tube and doing feedings by mouth. Likely not enough water intake Plan for rehydration as above Will resume tube feedings with free water flushes per dietary (4) Gastrostomy tube dependent: Code(s): Z93.1 - Gastrostomy status Status: Acute Assessment and Plan: See above. Resume tube feedings per dietary recommendations (5) Seizure disorder: Code(s): G40.909 - Epilepsy, unspecified, not intractable, without status epilepticus Status: Chronic Assessment and Plan: No witnessed seizure activity Continue Keppra per G-tube EEG pending as above (6) Abnormal finding of kidney: Code(s): R39.9 - Unspecified symptoms and signs involving the genitourinary system Status: Acute Assessment and Plan: CT of the abd/pelvis showed 12 mm right kidney mass Follow up ultrasound did not reveal a mass CT with and without contrast recommended for follow up. Will defer at this time. Consider outpatient follow up. Renal function is stable. Creatinine 1.1 Subjective Date/time seen: 08/09/22 06:41 Interval history: Date of service: 08/09/2022 Deb Matos is a 57-year-old female with a history of brain tumor, seizure disorder, gastrostomy tube dependence, chronic anemia, GERD, cholelithiasis who presented from her nursing facility due to decreased responsiveness and lethargy. the patient is unable to provide any history. She is lying curled in bed and covering her face. She does arouse to verbal stimuli but does not open her eyes even when asked to do so repeatedly. She did not allow me to gently pull her eyelids up and instead turned her head further into her pillow. She groaned or grunted in response to most questions but did state her name. When asked where we were she stated You know. Stop. Not able to obtain any additional history. Review of Systems Review of Systems: All systems reviewed & are unremarkable except as noted in HPI and below Exam Narrative: General: thin, frail, chronically ill-appearing 57-year-old female, curled up in bed laying on right side, comfortable, NARD Neuro: drowsy, arousable to verbal stimuli, alert and oriented x1, did not respond to additional questions or follow commands, no facial drooping from what could be visualized of the patients face HEENMT: normocephalic, atraumatic, EOMI, sclerae anicteric, moist oral mucosa,
[2022-08-09] MEDS: DEXTROSE 5% 1,000 ML 1,000 ML 60 ML IV CONT (06:51)
[2022-08-09 09:14] LABS: Free T4 Free Thyroxine Reflex 1.48 ng/dL (0.78-2.19)
[2022-08-09] MEDS: ESCITALOPRAM OXALATE 5 MG TABLET FEED TUBE (10:00)
[2022-08-09] MEDS: THIAMINE HCL 100 MG TABLET FEED TUBE (10:00)
[2022-08-09] MEDS: levETIRAcetam ORAL SOL 500 MG/5 ML UDC 1000 MG FEED TUBE ×2 (10:00→20:47)
[2022-08-09] MEDS: PANTOPRAZOLE SODIUM IV 40 MG VIAL IV PUSH ×2 (10:00→20:47)
--- NOTE | 2022-08-09 11:07 | WPDNEURCNPN ---
Assessment and Plan Assessment and plan (1) Seizure disorder: Code(s): G40.909 - Epilepsy, unspecified, not intractable, without status epilepticus Status: Chronic Plan 1 change in the mental status could very well be related to generalized cerebral dysfunction with underlying abnormalities as mention on the MRI , can always consider the possibility post seizure confusion patient is receiving Keppra 1000 mg q.12 hours in addition to the vitamin supplements and will continue the treatment as such her EEG obviously can be abnormal. Consult date: 08/09/22 HPI: Deb Matos is a 57 year old femaleAdmitted to the hospital through the emergency room for the complaints of lethargy and unresponsive [place] to the painful stimuli patient carries the diagnosis of brain tumor with her being G-tube dependent she was brought to the ER from the [facility] for similar symptomatology last week at that time she was noted to be nauseated and was vomiting coffee-ground material but her basic workup at that time was negative and she was discharged back to the facility patient was minimally responsive to verbal stimuli though she does respond to painful stimuli she was able to his state her name and also she knew that she was in the hospital though she had no other complaints as per the information available she is not allergic to any medication her general physical exam and neuro exam otherwise was unremarkable she was definitely afebrile and her blood pressure was 139/54 with pulse ox 100. Initial CBC was normal basic metabolic panel with BUN of 64 creatinine of 1.5 and sodium 151 routine lab studies otherwise were negative psoas the screening for influenza AB RSV and Covid, chest x-ray was negative and a CT scan of the brain documented able hyperdense area suggestive of multiple small meningiomas and ventriculostomy shunt in addition to generalized cerebral atrophy. CT scan of the head documented M hyperdense areas suggestive of a small meningiomas in addition to ventriculostomy shunt catheter and generalized atrophy of the brain Review of Systems Review of Systems: All systems reviewed & are unremarkable except as noted in HPI and below PMFSH Past Medical History Medical History (Updated 08/09/22 @ 06:57 by Jennifer Jaffe PA-C) Anemia of chronic disease Cholelithiasis Chronic GERD Depression with anxiety Gastrostomy tube dependent Seizure disorder Uterine fibroid Surgical History Surgical History (Updated 08/08/22 @ 22:20 by Salud Martinez NP) H/O abdominal surgery History of appendectomy S/P ORIF (open reduction internal fixation) fracture Left elbow S/P 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 Other Unknown family medical history Social History Social History (Updated 08/08/22 @ 22:21 by Salud Martinez NP) Social History: The patient is single and disabled. Clyde Matos a sibling is the power senior product designer listed for the patient and another contact lens blocker and cutter is Nayeli montgomery who is listed as a sibling. Code status full code Smoking status: Never smoker Alcohol intake: never Substance use: never Spiritual care concerns: No Meds Home Medications and Allergies Home Medications Medication Instructions Recorded Confirmed Type acetaminophen 325 mg tablet 650 mg feeding tube Q6H PRN Pain 08/08/22 08/08/22 History (Scale Score 1-3) escitalopram oxalate 5 mg tablet 5 mg feeding tube DAILY 08/08/22 08/08/22 History ferrous sulfate 325 mg (65 mg 325 mg feeding tube DAILY 08/08/22 08/08/22 History iron) tablet ibuprofen 200 mg tablet 200 mg feeding tube Q6H PRN Pain 08/08/22 08/08/22 History (Scale Score 1-3) levetiracetam 1,000 mg tablet 1,000 mg PO BID 08/08/22 08/08/22 History multivitamin s-pyqaleib-yppumoa 1 tablet PO DAILY 08/08/22 08/08/22 History fumarate 18 mg-vitamin K 25 mcg t
--- NOTE | 2022-08-09 11:43 | PC.NURSE ---
technical sales support specialist Mary attempted to get timed sodium lab and pt was off floor. Lab drawn around 1120 whenever pt returned to floor
[2022-08-09 11:44] LABS: Sodium 155 mmol/L (137-145)
[2022-08-09 13:26] LABS: Total Triiodothyronine (T3) 0.94 NG/ML (0.97-1.69)
--- NOTE | 2022-08-09 17:19 | PC.NURSE ---
Patient gets 240ml bolus feeds QID (0800, 1400, 2000, 0200) with 100ml flushes before and after. Gave 1400 bolus feed
[2022-08-09 17:56] LABS: Sodium 146 mmol/L (137-145)
--- NOTE | 2022-08-09 18:10 | PC.NURSE ---
Doctor Nava asking to increase free water flushes to 200mls before and after each tube feed (0800,1400,2000,0200).
[2022-08-10] VITALS (9 sets, daily range): BP systolic 107–143; BP diastolic 40–66; PULSE 72–109; RESP 12–20; TEMP 36.6–37.3; O2SAT 99–100
[2022-08-10 05:34] LABS: Hematocrit 37.7 % (37.0-47.0); Hemoglobin 11.9 g/dL (12.0-15.0); Mean Corpuscular HGB Conc 31.6 g/dl (32-36); Mean Corpuscular Hemoglobin 27.4 pg (26-34); Mean Corpuscular Volume 86.7 fl (80-100); Platelet Count Result 180 k/mm3 (150-375); Red Blood Count 4.35 M/mm3 (4.2-5.4); Red Cell Distribution Width 13.2 % (11.5-14.5); White Blood Count 7.7 K/mm3 (4.5-10.0)
[2022-08-10 07:29] LABS: Potassium Urine Random 16.2 meq/L; Sodium Urine Random 47 meq/L
[2022-08-10] MEDS: FERROUS SULFATE 324 MG TABLET XX (08:06)
[2022-08-10] MEDS: THIAMINE HCL 100 MG TABLET FEED TUBE (08:06)
[2022-08-10] MEDS: levETIRAcetam ORAL SOL 500 MG/5 ML UDC 1000 MG FEED TUBE ×2 (08:06→20:39)
[2022-08-10] MEDS: ESCITALOPRAM OXALATE 5 MG TABLET FEED TUBE (08:07)
[2022-08-10] MEDS: PANTOPRAZOLE SODIUM IV 40 MG VIAL IV PUSH ×2 (08:07→20:39)
[2022-08-10 08:20] LABS: Eosinophil Urine None Seen % (None Seen); Urine Eos QC 2nd Tech Confirmed
[2022-08-10 09:14] LABS: Anion Gap 5 mmol/L (8-16); Blood Urea Nitrogen 30 mg/dL (7-17); Calcium 8.8 mg/dL (8.4-10.2); Carbon Dioxide 23 mmol/L (22-30); Chloride 119 mmol/L (98-107); Estimated CRCL calculation 43 ml/min; Estimated Glomerular Filt Rate > 60; Glucose 112 mg/dL (65-110); Phosphorus 2.1 mg/dL (2.5-4.5); Potassium 3.8 mmol/L (3.4-5.0); Sodium 147 mmol/L (137-145)
--- NOTE | 2022-08-10 09:30 | P.PNIM_ITS ---
Progress Note: A&P Assessment and Plan (1) Acute metabolic encephalopathy: Code(s): G93.41 - Metabolic encephalopathy Status: Acute Assessment and Plan: * Patient presented from nursing facility due to decreased responsiveness and lethargy * Head CT with no acute findings with stable areas of encephalomalacia * SUPERVISOR WEAVING shunt imaging reveals intact shunt * History of seizure disorder, with no witnessed seizure * Post-ictal state could be contributing to symptoms * EEG is abnormal, given history probably a chronic finding * Appreciate neurology consultation * Management of electrolyte abnormalities as described below * Patient is G-tube dependent but apparently has been doing oral feedings. Aspiration considered however CXR with no acute findings and no clinical indicators of infection * No evidence of infectious source * TSH is abnormal, low. T4 1.48, no indication for treatment * Ammonia within normal limits (2) Acute hypernatremia: Code(s): E87.0 - Hyperosmolality and hypernatremia Status: Acute Assessment and Plan: Suspect due to dehydration * Sodium 151 on presentation, trending up, however, currently 147 * Received LR in ED * D5W stopped at this time, if sodium is elevated will need to restart * Goal to decrease sodium by no more than 10 points in 24 hours * Hold sodium-phosphate supplementation (13 mEq sodium) * Getting free water flushes (3) Gastrostomy tube dependent: Code(s): Z93.1 - Gastrostomy status Status: Acute Assessment and Plan: * Magazine Supervisor consult * Restart tube feedings accordingly (4) Seizure disorder: Code(s): G40.909 - Epilepsy, unspecified, not intractable, without status epilepticus Status: Chronic Assessment and Plan: No witnessed seizure activity * Continue Keppra per G-tube * EEG pending as above (5) Abnormal finding of kidney: Code(s): R39.9 - Unspecified symptoms and signs involving the genitourinary system Status: Acute Assessment and Plan: CT of the abd/pelvis showed 12 mm right kidney mass * Follow up ultrasound did not reveal a mass * CT with and without contrast recommended for follow up. Will defer at this time. Consider outpatient follow up. * Renal function is stable. Creatinine 0.90 Time Spent With Patient Time: 52 minutes Time with patient: Greater than 35 minutes Subjective Date/time seen: 08/10/22 09:30 Interval history: 02/25/23 0930 Patient is relatively unresponsive. She does not really open her eyes or even talk with you. She is currently up in bed with her hands of her face. She seems in appears comfortable. Complete review of systems unable to be obtained due to patient's mental status and condition of health. 08/09/2022 Deb Matos is a 57-year-old female with a history of brain tumor, seizure disorder, gastrostomy tube dependence, chronic anemia, GERD, cholelithiasis who presented from her nursing facility due to decreased responsiveness and lethargy. the patient is unable to provide any history. She is lying curled in bed and covering her face. She does arouse to verbal stimuli but does not open her eyes even when asked to do so repeatedly. She did not allow me to gently pull her eyelids up and instead turned her head further into her pillow. She groaned or grunted in response to most questions but did state her name. When asked whe
--- NOTE | 2022-08-10 09:30 | PM.IMPN ---
Progress Note: A&P Assessment and Plan (1) Acute metabolic encephalopathy: Code(s): G93.41 - Metabolic encephalopathy Status: Acute Assessment and Plan: Patient presented from nursing facility due to decreased responsiveness and lethargy Head CT with no acute findings with stable areas of encephalomalacia MEDICAL SUPERINTENDENT shunt imaging reveals intact shunt History of seizure disorder, with no witnessed seizure Post-ictal state could be contributing to symptoms EEG is abnormal, given history probably a chronic finding Appreciate neurology consultation Management of electrolyte abnormalities as described below Patient is G-tube dependent but apparently has been doing oral feedings. Aspiration considered however CXR with no acute findings and no clinical indicators of infection No evidence of infectious source TSH is abnormal, low. T4 1.48, no indication for treatment Ammonia within normal limits (2) Acute hypernatremia: Code(s): E87.0 - Hyperosmolality and hypernatremia Status: Acute Assessment and Plan: Suspect due to dehydration Sodium 151 on presentation, trending up, however, currently 147 Received LR in ED D5W stopped at this time, if sodium is elevated will need to restart Goal to decrease sodium by no more than 10 points in 24 hours Hold sodium-phosphate supplementation (13 mEq sodium) Getting free water flushes (3) Gastrostomy tube dependent: Code(s): Z93.1 - Gastrostomy status Status: Acute Assessment and Plan: Firer Portable Boiler consult Restart tube feedings accordingly (4) Seizure disorder: Code(s): G40.909 - Epilepsy, unspecified, not intractable, without status epilepticus Status: Chronic Assessment and Plan: No witnessed seizure activity Continue Keppra per G-tube EEG pending as above (5) Abnormal finding of kidney: Code(s): R39.9 - Unspecified symptoms and signs involving the genitourinary system Status: Acute Assessment and Plan: CT of the abd/pelvis showed 12 mm right kidney mass Follow up ultrasound did not reveal a mass CT with and without contrast recommended for follow up. Will defer at this time. Consider outpatient follow up. Renal function is stable. Creatinine 0.90 Time Spent With Patient Time: 52 minutes Time with patient: Greater than 35 minutes Subjective Date/time seen: 08/10/22 09:30 Interval history: 08/10/22929 Patient is relatively unresponsive. She does not really open her eyes or even talk with you. She is currently up in bed with her hands of her face. She seems in appears comfortable. Complete review of systems unable to be obtained due to patient's mental status and condition of health. 08/09/2022 Deb Matos is a 57-year-old female with a history of brain tumor, seizure disorder, gastrostomy tube dependence, chronic anemia, GERD, cholelithiasis who presented from her nursing facility due to decreased responsiveness and lethargy. the patient is unable to provide any history. She is lying curled in bed and covering her face. She does arouse to verbal stimuli but does not open her eyes even when asked to do so repeatedly. She did not allow me to gently pull her eyelids up and instead turned her head further into her pillow. She groaned or grunted in response to most questions but did state her name. When asked where we were she stated You know. Stop. Not able to obtain any additional history. 08/08/22? 18:38 PE this is a 57-year-old female patient has a history of brain tumor and G-tube dependent.? The patient came to the emergency room with evaluation of decreased responsiveness and lethargy.? The patient comes from [facility] She had previous plea had the similar symptoms a week ago.? The patient had an upper GI workup last week and was essentially found to be negative.? The patient is minimally
[2022-08-10] MEDS: ACETAMINOPHEN 325 MG TABLET 650 MG FEED TUBE (20:39)
[2022-08-11] VITALS (7 sets, daily range): BP systolic 110–130; BP diastolic 40–45; PULSE 77–88; RESP 16–20; TEMP 36.5–36.6; O2SAT 99–100
[2022-08-11 05:16] LABS: Basophils Percent Auto 0.5 % (0.2-1.2); Eosinophils Absolute Auto 0.1 K/mm3 (0-0.3); Eosinophils Percent Auto 1.7 % (0-4.4); Hematocrit 35.1 % (37.0-47.0); Hemoglobin 11.3 g/dL (12.0-15.0); Immature Granulocyte Absolute 0.02 K/mm3 (0.00-0.031); Immature Granulocyte Percent A 0.3 % (0-0.5); Lymphocytes Absolute Auto 1.14 K/mm3 (0.9-3.2); Mean Corpuscular HGB Conc 32.2 g/dl (32-36); Mean Corpuscular Hemoglobin 27.4 pg (26-34); Mean Platelet Volume 11.6 fl (7.4-10.4); Monocytes Absolute Auto 0.5 K/mm3 (0.1-0.6); Monocytes Percent Auto 7.7 % (2.6-8.5); Neutrophils Absolute Auto 4.6 K/mm3 (1.3-6.7); Neutrophils Percent Auto 71.8 % (45.5-73.1); Platelet Count Result 172 k/mm3 (150-375); Red Blood Count 4.13 M/mm3 (4.2-5.4); Red Cell Distribution Width 13.2 % (11.5-14.5); White Blood Count 6.4 K/mm3 (4.5-10.0)
[2022-08-11 05:28] LABS: Alanine Aminotransferase 19 U/L (6-35); Alkaline Phosphatase 65 U/L (38-126); Anion Gap 5 mmol/L (8-16); Aspartate Amino Transferase 42 U/L (14-36); Bilirubin,Total 0.3 mg/dL (0.2-1.3); Blood Urea Nitrogen 28 mg/dL (7-17); Calcium 8.9 mg/dL (8.4-10.2); Carbon Dioxide 28 mmol/L (22-30); Chloride 111 mmol/L (98-107); Estimated CRCL calculation 39 ml/min; Estimated Glomerular Filt Rate > 60; Glucose 103 mg/dL (65-110); Magnesium 2.3 mg/dL (1.6-2.3); Potassium 3.7 mmol/L (3.4-5.0); Sodium 144 mmol/L (137-145)
[2022-08-11] MEDS: PANTOPRAZOLE SODIUM IV 40 MG VIAL IV PUSH ×2 (08:04→20:30)
[2022-08-11] MEDS: ESCITALOPRAM OXALATE 5 MG TABLET FEED TUBE (08:04)
[2022-08-11] MEDS: THIAMINE HCL 100 MG TABLET FEED TUBE (08:04)
[2022-08-11] MEDS: FERROUS SULFATE LIQUID 325 MG/7.4 ML ELIXIR FEED TUBE (08:04)
[2022-08-11] MEDS: levETIRAcetam ORAL SOL 500 MG/5 ML UDC 1000 MG FEED TUBE ×2 (08:05→20:30)
--- NOTE | 2022-08-11 10:30 | PM.IMPN ---
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 Aspiration considered however CXR with no acute findings and no clinical indicators of infection No evidence of infectious source TSH is abnormal, low. T4 1.48, no indication for treatment Ammonia within normal limits Put patient in chair, she responded to the move (2) Acute hypernatremia: Code(s): E87.0 - Hyperosmolality and hypernatremia Status: Acute Assessment and Plan: Suspect due to dehydration Sodium 151 on presentation, trending up, however, currently 144 Received LR in ED D5W stopped at this time, if sodium is elevated will need to restart Goal to decrease sodium by no more than 10 points in 24 hours Hold sodium-phosphate supplementation (13 mEq sodium) Getting free water flushes (3) Gastrostomy tube dependent: Code(s): Z93.1 - Gastrostomy status Status: Acute Assessment and Plan: Emergency Vehicle Operator consult Restart tube feedings accordingly (4) Seizure disorder: Code(s): G40.909 - Epilepsy, unspecified, not intractable, without status epilepticus Status: Chronic Assessment and Plan: No witnessed seizure activity Continue Keppra per G-tube EEG pending as above (5) Abnormal finding of kidney: Code(s): R39.9 - Unspecified symptoms and signs involving the genitourinary system Status: Acute Assessment and Plan: CT of the abd/pelvis showed 12 mm right kidney mass Follow up ultrasound did not reveal a mass CT with and without contrast recommended for follow up. Will defer at this time. Consider outpatient follow up. Renal function is stable. Creatinine 0.90 Time Spent With Patient Time: 58 minutes, placed patient in chair Time with patient: Greater than 35 minutes Subjective Date/time seen: 08/11/22 1030 Interval history: 08/11/22 103 Patient is mostly unresponsive however was able to get the patient to a chair when she told me that she did feel good and to leave her alone. She got really upset and told me that she was going to scratch me. When asked why she does not feel good, she stated that she does not know. Currently she appears stable. Labs and vitals are stable she is just very tired and sleepy. Tele is stable will DC at this time. 08/10/22 0930 Patient is relatively unresponsive. She does not really open her eyes or even talk with you. She is currently up in bed with her hands of her face. She seems in appears comfortable. Complete review of systems unable to be obtained due to patient's mental status and condition of health. 08/09/2022 Deb Matos is a 57-year-old female with a history of brain tumor, seizure disorder, gastrostomy tube dependence, chronic anemia, GERD, cholelithiasis who presented from her nursing facility due to decreased responsiveness and lethargy. the patient is unable to provide any history. She is lying curled in bed and covering her face. She does arouse to verbal stimuli but does not open her eyes even when asked to do so repeatedly. She did not allow me to gently pull her eyelids up and instead turned her head further into her pillow. She groaned or grunted in response to most questions but did state her name. When asked where
--- NOTE | 2022-08-11 10:30 | P.PNIM_ITS ---
Progress Note: A&P Assessment and Plan (1) Acute metabolic encephalopathy: Code(s): G93.41 - Metabolic encephalopathy Status: Acute Assessment and Plan: * Patient presented from nursing facility due to decreased responsiveness and lethargy * Head CT with no acute findings with stable areas of encephalomalacia * SUPERVISOR PAYROLL shunt imaging reveals intact shunt * History of seizure disorder, with no witnessed seizure * Post-ictal state could be contributing to symptoms * EEG is abnormal, given history probably a chronic finding * Appreciate neurology consultation * Management of electrolyte abnormalities as described below * Patient is G-tube dependent but apparently has been doing oral feedings. Aspiration considered however CXR with no acute findings and no clinical indicators of infection * No evidence of infectious source * TSH is abnormal, low. T4 1.48, no indication for treatment * Ammonia within normal limits * Put patient in chair, she responded to the move (2) Acute hypernatremia: Code(s): E87.0 - Hyperosmolality and hypernatremia Status: Acute Assessment and Plan: Suspect due to dehydration * Sodium 151 on presentation, trending up, however, currently 144 * Received LR in ED * D5W stopped at this time, if sodium is elevated will need to restart * Goal to decrease sodium by no more than 10 points in 24 hours * Hold sodium-phosphate supplementation (13 mEq sodium) * Getting free water flushes (3) Gastrostomy tube dependent: Code(s): Z93.1 - Gastrostomy status Status: Acute Assessment and Plan: * Managed Services Consultant consult * Restart tube feedings accordingly (4) Seizure disorder: Code(s): G40.909 - Epilepsy, unspecified, not intractable, without status epilepticus Status: Chronic Assessment and Plan: No witnessed seizure activity * Continue Keppra per G-tube * EEG pending as above (5) Abnormal finding of kidney: Code(s): R39.9 - Unspecified symptoms and signs involving the genitourinary system Status: Acute Assessment and Plan: CT of the abd/pelvis showed 12 mm right kidney mass * Follow up ultrasound did not reveal a mass * CT with and without contrast recommended for follow up. Will defer at this time. Consider outpatient follow up. * Renal function is stable. Creatinine 0.90 Time Spent With Patient Time: 58 minutes, placed patient in chair Time with patient: Greater than 35 minutes Subjective Date/time seen: 08/11/22 1030 Interval history: 08/11/22 1030 Patient is mostly unresponsive however was able to get the patient to a chair when she told me that she did feel good and to leave her alone. She got really upset and told me that she was going to scratch me. When asked why she does not feel good, she stated that she does not know. Currently she appears stable. Labs and vitals are stable she is just very tired and sleepy. Tele is stable will DC at this time. 08/10/22 0930 Patient is relatively unresponsive. She does not really open her eyes or even talk with you. She is currently up in bed with her hands of her face. She seems in appears comfortable. Complete review of systems unable to be obtained due to patient's mental status and condition of health. 08/09/2022 Deb Matos is a 57-year-old female with a history of brain tumor, seizure disorder, gastrostomy t
--- NOTE | 2022-08-11 11:17 | PC.NURSE ---
Spoke with Dr Dupont, asked if he needs to do anything else with the patient to be discharged. He says, She can go home.
[2022-08-12 05:39] LABS: Basophils Percent Auto 0.4 % (0.2-1.2); Eosinophils Absolute Auto 0.1 K/mm3 (0-0.3); Eosinophils Percent Auto 1.4 % (0-4.4); Hemoglobin 10.2 g/dL (12.0-15.0); Immature Granulocyte Absolute 0.02 K/mm3 (0.00-0.031); Immature Granulocyte Percent A 0.3 % (0-0.5); Lymphocytes Percent Auto 12.8 % (18.3-44.2); Mean Corpuscular HGB Conc 32.9 g/dl (32-36); Mean Corpuscular Hemoglobin 28.3 pg (26-34); Mean Corpuscular Volume 85.9 fl (80-100); Mean Platelet Volume 11.5 fl (7.4-10.4); Monocytes Absolute Auto 0.5 K/mm3 (0.1-0.6); Monocytes Percent Auto 6.8 % (2.6-8.5); Neutrophils Absolute Auto 5.5 K/mm3 (1.3-6.7); Neutrophils Percent Auto 78.3 % (45.5-73.1); Platelet Count Result 155 k/mm3 (150-375); Red Blood Count 3.61 M/mm3 (4.2-5.4)
[2022-08-12 06:00] VITALS: BP 129/47; PULSE 87; RESP 16; TEMP 36.9; O2SAT 98
[2022-08-12 06:06] LABS: Alanine Aminotransferase 20 U/L (6-35); Albumin Level 3.6 g/dL (3.5-5.1); Alkaline Phosphatase 62 U/L (38-126); Anion Gap 3 mmol/L (8-16); Aspartate Amino Transferase 38 U/L (14-36); Bilirubin,Total 0.3 mg/dL (0.2-1.3); Blood Urea Nitrogen 26 mg/dL (7-17); Calcium 8.6 mg/dL (8.4-10.2); Carbon Dioxide 29 mmol/L (22-30); Chloride 105 mmol/L (98-107); Estimated CRCL calculation 43 ml/min; Estimated Glomerular Filt Rate > 60; Glucose 118 mg/dL (65-110); Magnesium 2.1 mg/dL (1.6-2.3); Potassium 3.9 mmol/L (3.4-5.0); Sodium 137 mmol/L (137-145)
[2022-08-12] MEDS: THIAMINE HCL 100 MG TABLET FEED TUBE (07:59)
[2022-08-12] MEDS: ESCITALOPRAM OXALATE 5 MG TABLET FEED TUBE (07:59)
[2022-08-12] MEDS: levETIRAcetam ORAL SOL 500 MG/5 ML UDC 1000 MG FEED TUBE (07:59)
[2022-08-12] MEDS: FERROUS SULFATE LIQUID 325 MG/7.4 ML ELIXIR FEED TUBE (07:59)
[2022-08-12] MEDS: PANTOPRAZOLE SODIUM IV 40 MG VIAL IV PUSH (07:59)
--- NOTE | 2022-08-12 10:00 | P.DS_ITS ---
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 Aspiration considered however CXR with no acute findings and no clinical indicators of infection * No evidence of infectious source * TSH is abnormal, low. T4 1.48, no indication for treatment * Ammonia within normal limits * Put patient in chair, she responded to the move (2) Acute hypernatremia: Code(s): E87.0 - Hyperosmolality and hypernatremia Status: Acute Assessment and Plan: Suspect due to dehydration * Sodium 151 on presentation, trending up, however, currently 137 * Received LR in ED * D5W stopped at this time, if sodium is elevated will need to restart * Goal to decrease sodium by no more than 10 points in 24 hours * Hold sodium-phosphate supplementation (13 mEq sodium) * Getting free water flushes (3) Gastrostomy tube dependent: Code(s): Z93.1 - Gastrostomy status Status: Acute Assessment and Plan: * Assistant Merchandiser consult * Restart tube feedings accordingly (4) Seizure disorder: Code(s): G40.909 - Epilepsy, unspecified, not intractable, without status epilepticus Status: Chronic Assessment and Plan: No witnessed seizure activity * Continue Keppra per G-tube * EEG pending as above (5) Abnormal finding of kidney: Code(s): R39.9 - Unspecified symptoms and signs involving the genitourinary system Status: Acute Assessment and Plan: CT of the abd/pelvis showed 12 mm right kidney mass * Follow up ultrasound did not reveal a mass * CT with and without contrast recommended for follow up. Will defer at this time. Consider outpatient follow up. * Renal function is stable. Creatinine 0.90 DS: Summary Hospital Course Hospital Course: Patient is a 57-year-old female with a past medical history of brain tumor, seizures, G-tube, anemia, GERD, cholelithiasis who presented from the nursing facility due to decreased responsiveness and lethargy. History of present illness is unable to really be obtained due to patient's mental status however medications have been adjusted and neurology was consulted. Head CT showed no acute findings. EEG is abnormal however chronic for her. A sodium was noted to be 151 upon presentation has been trending down with the help of D5W. Currently sodium is 137. Free water flushes and tube feeding has been restarted. Patient does respond to stimuli and was placed into a chair. Labs and vital signs remained stable and patient is stable for discharge at this time. Creatinine was noted to be elevated upon arrival however is back to her baseline at 0.9. H&H was noted to be hemoconcentrated link
--- NOTE | 2022-08-12 10:00 | PM.DS ---
DS: Admitting Diagnosis Discharge Date 08/12/22 1000 Admitting Diagnosis acute metabolic encephalopathy, hyponatremia DS: Discharge Diagnosis Discharge Diagnosis (1) Acute metabolic encephalopathy: Code(s): G93.41 - Metabolic encephalopathy Status: Acute Assessment and Plan: Patient presented from nursing facility due to decreased responsiveness and lethargy Head CT with no acute findings with stable areas of encephalomalacia ANIMAL ANATOMIST shunt imaging reveals intact shunt History of seizure disorder, with no witnessed seizure Post-ictal state could be contributing to symptoms EEG is abnormal, given history probably a chronic finding Appreciate neurology consultation Management of electrolyte abnormalities as described below Patient is G-tube dependent but apparently has been doing oral feedings. Aspiration considered however CXR with no acute findings and no clinical indicators of infection No evidence of infectious source TSH is abnormal, low. T4 1.48, no indication for treatment Ammonia within normal limits Put patient in chair, she responded to the move (2) Acute hypernatremia: Code(s): E87.0 - Hyperosmolality and hypernatremia Status: Acute Assessment and Plan: Suspect due to dehydration Sodium 151 on presentation, trending up, however, currently 137 Received LR in ED D5W stopped at this time, if sodium is elevated will need to restart Goal to decrease sodium by no more than 10 points in 24 hours Hold sodium-phosphate supplementation (13 mEq sodium) Getting free water flushes (3) Gastrostomy tube dependent: Code(s): Z93.1 - Gastrostomy status Status: Acute Assessment and Plan: Pediatric Lpn consult Restart tube feedings accordingly (4) Seizure disorder: Code(s): G40.909 - Epilepsy, unspecified, not intractable, without status epilepticus Status: Chronic Assessment and Plan: No witnessed seizure activity Continue Keppra per G-tube EEG pending as above (5) Abnormal finding of kidney: Code(s): R39.9 - Unspecified symptoms and signs involving the genitourinary system Status: Acute Assessment and Plan: CT of the abd/pelvis showed 12 mm right kidney mass Follow up ultrasound did not reveal a mass CT with and without contrast recommended for follow up. Will defer at this time. Consider outpatient follow up. Renal function is stable. Creatinine 0.90 DS: Summary Hospital Course Hospital Course: Patient is a 57-year-old female with a past medical history of brain tumor, seizures, G-tube, anemia, GERD, cholelithiasis who presented from the nursing facility due to decreased responsiveness and lethargy. History of present illness is unable to really be obtained due to patient's mental status however medications have been adjusted and neurology was consulted. Head CT showed no acute findings. EEG is abnormal however chronic for her. A sodium was noted to be 151 upon presentation has been trending down with the help of D5W. Currently sodium is 137. Free water flushes and tube feeding has been restarted. Patient does respond to stimuli and was placed into a chair. Labs and vital signs remained stable and patient is stable for discharge at this time. Creatinine was noted to be elevated upon arrival however is back to her baseline at 0.9. H&H was noted to be hemoconcentrated however remained stable as well. Patient will be discharged back to her nursing facility. Status at Discharge Functional status at discharge: uses cane/walker Overall status at discharge: patient is progressing back to baseline Time Spent with Patient Time attestation: Total time spent providing and/or coordinating discharge services: 52 minutes Time spent: Greater than 30 minutes Specific discharge activities: Diagnostic testing, chart review, developing a treatment plan, education, car
--- NOTE | 2022-08-12 10:53 | WPDNEUROLOGY ---
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 She presented for admission due to decreased responsivness and lethargy. EEG DESCRIPTION The background consists mostly of theta and delta range activity. The background is symmetric. Well-developed posterior dominant rhythm and anterior-posterior gradient are not observed. Normal sleep architecture is not observed. Hyperventilation and photic stimulation were not performed. There are no electrographic seizures noted during the recording. Sharp waves with phase reversal are noted isolated to the right anterior temporal region (T4), although without significant field effect. IMPRESSION This is an abnormal EEG due to the presence of generalized slowing of background which can be seen in the presence of encephalopathy. Sharp waveforms of uncertain significance also noted in isolation in the right anterior temporal region, which may represent superimposed focal cerebral dysfunction in the right temporal region or decreased threshold to have seizure from focal onset mechanism. There are no electrographic seizures noted during the recording. Clinical correlation is recommended.
[2022-08-12 11:43] LABS: Myoglobin, Urine <27 mcg/L (<28)
[2022-08-12 14:00] VITALS: BP 123/42; PULSE 86; RESP 18; TEMP 36.3; O2SAT 100
[2022-08-12 14:01] LABS: EDCOVIDSCREEN Negative (Negative)
[2022-08-13 20:26] LABS: Osmolality, Urine 615 mOsm/kg (50-1200)
== END 2022-08-12 16:50 | DRG 426 ==
LOC: ANHED 19:44 → ANH2MED 20:03
PROVIDERS: Nurse Practitioner; Physician Assistant; Admitting Provider Chiropractor; Emergency Provider Emergency Medicine; PCP Internal Medicine; Visit Provider Nurse Practitioner
DX: E87.0 Hyperosmolality and hypernatremia (principal); G93.41 Metabolic encephalopathy; Z93.1 Gastrostomy status; E86.0 Dehydration; Z20.822 Contact with and (suspected) exposure to COVID-19; G40.909 Epilepsy, unspecified, not intractable, without status epilepticus; K21.9 Gastro-esophageal reflux disease without esophagitis; F41.8 Other specified anxiety disorders; D63.8 Anemia in other chronic diseases classified elsewhere; K80.20 Calculus of gallbladder without cholecystitis without obstruction; D25.9 Leiomyoma of uterus, unspecified; N28.89 Other specified disorders of kidney and ureter; Z90.49 Acquired absence of other specified parts of digestive tract; Z98.2 Presence of cerebrospinal fluid drainage device
CPT/HCPCS: 36415; 70250; 70450; 71045; 74018; 74177; 76775; 80048; 80053; 81001; 82140; 82550; 82948; 83605; 83735; 83874; 83935; 84100; 84133; 84295; 84300; 84439; 84443; 84480; 84484; 85025; 85027; 85610; 85730; 85999; 86140; 87426; 87637; 93005; 93306; 93880; 95816; 96374; 96375; 99285; A9270; C9113; C9803; G0378; G0379; J0131; J7030; J7070; J7120; Q9967

== ENCOUNTER 2022-09-29 12:35 | Emergency (ER) | payer OTHER, SELFPAY ==
--- NOTE | ~2022-09-29 | XR_ITS ---
EXAMINATION: XR G tube evaluation w imaging INDICATION: G-tube evaluation TECHNIQUE: AP view of the abdomen is obtained. COMPARISON: 08/08/2022 FINDINGS: Injected contrast material opacifies the stomach. The gastrostomy is positioned within the stomach. A ventriculoperitoneal shunt is noted. The bowel gas pattern is unremarkable. IMPRESSION: 1. G-tube in the stomach. Reviewed, dictated and finalized at location A. IMPRESSION: 1. G-tube in the stomach.
[2022-09-29 12:32] VITALS: BP 141/71; PULSE 88; RESP 16; TEMP 36.8; O2SAT 100
--- NOTE | 2022-09-29 12:56 | ED.GENADULT ---
HPI - General Adult General Chief complaint: Unspecified Stated complaint: pulled out g-tube Time Seen by Provider: 09/29/22 12:39 History of Present Illness HPI narrative: Patient is a 57-year-old female who presents ER due to excellently removing her G-tube. This occurred early in the morning around 6 AM. She would not allow facility staff to replace it. Patient has no reports of pain or other discomfort at this time. She is oriented x2 cannot provide history but does report that she is hungry and would like to eat. Apparently patient receives some medication and additional feedings through this tube though she is able to eat in small quantities during the day. Related Data Home Medications Medication Instructions Recorded Confirmed acetaminophen 325 mg tablet 650 mg feeding tube Q6H PRN Pain 08/08/22 08/08/22 (Scale Score 1-3) escitalopram oxalate 5 mg tablet 5 mg feeding tube DAILY 08/08/22 08/08/22 ferrous sulfate 325 mg (65 mg 325 mg feeding tube DAILY 08/08/22 08/08/22 iron) tablet ibuprofen 200 mg tablet 200 mg feeding tube Q6H PRN Pain 08/08/22 08/08/22 (Scale Score 1-3) levetiracetam 1,000 mg tablet 1,000 mg PO BID 08/08/22 08/08/22 multivitamin k-nacttymq-dyznhqg 1 tablet PO DAILY 08/08/22 08/08/22 fumarate 18 mg-vitamin K 25 mcg tablet omeprazole 20 mg capsule,delayed 20 mg feeding tube DAILY 08/08/22 08/08/22 release sodium di- and 1 tablet feeding tube BID 08/08/22 08/08/22 monophosphate-potassium phos monobasic 250 mg tablet (K-Lgum-Sigombn) thiamine HCl (vitamin B1) 100 mg 100 mg feeding tube DAILY 08/08/22 08/08/22 tablet trazodone 50 mg tablet 25 mg feeding tube Q6H PRN Anxiety 08/08/22 08/08/22 Allergies Allergy/AdvReac Type Severity Reaction Status Date / Time No Known Allergies Allergy Verified 08/05/22 01:58 Review of Systems Review of Systems: ROS unobtainable: Yes unobtainable due to mental status PMFSH Past Medical History Medical History (Updated 09/29/22 @ 13:50 by Jermaine Lopez MD) Anemia of chronic disease Cholelithiasis Chronic GERD Depression with anxiety Gastrostomy tube dependent Seizure disorder Uterine fibroid Surgical History Surgical History (Updated 08/08/22 @ 22:20 by Salud Martinez NP) H/O abdominal surgery History of appendectomy S/P ORIF (open reduction internal fixation) fracture Left elbow S/P CIGARETTE INSPECTOR shunt Family History Family History (Updated 08/08/22 @ 22:47 by Luci Curry RN) Unknown No problems noted. Other Unknown family medical history Social History Social History (Updated 08/08/22 @ 22:21 by Salud Martinez NP) Social History: The patient is single and disabled. Clyde Matos a sibling is the power benzol still operator listed for the patient and another contact lens flashing puncher is Nayeli montgomery who is listed as a sibling. Code status full code Smoking status: Never smoker Alcohol intake: never Substance use: never Spiritual care concerns: No Exam Narrative: GENERAL: Well-appearing, well-nourished, and in no acute distress. HEAD: Normocephalic, atraumatic. EYES: PERRL and EOMI. ENT: Mucous membranes moist. CHEST: Clear to auscultation. No respiratory distress. HEART: Regular rate and rhythm. Normal peripheral pulses. ABDOMEN: Soft, nontender, G-tube site left mid abdomen without skin breakdown or drainage, normal active bowel sounds. EXTREMITIES: Normal range of motion. No edema. SKIN: Warm, dry, no rash. NEURO: Alert and oriented x3. PSYCH: Normal mood and affect. Course Course Emergency Course: Unable to place 16 Divehi G-tube. A 10 Divehi Scott placed. Appropriate location confirmed by KUB with Gastrografin. Discharge back to [facility]. Vital Signs Vital signs: Vital Signs Temperature 98.3 F 09/29/22 12:32 Pulse Rate 88 09/29/22 12:32 Respiratory Rate 16 09/29/22 12:32 Blood Pressure 141/71 H 09/29/22 12:32 Pulse Oximetry 100 09/29/22 12:32 Oxy
--- NOTE | 2022-09-29 14:30 | PC.NURSE ---
10F aguiar placed in hole for g tube by Dr. Lopez. Pt tolerated well.
[2022-09-29 16:02] VITALS: BP 152/78; PULSE 76; RESP 16; O2SAT 99
== END 2022-09-29 16:05 | disposition home or self-care (01) ==
PROVIDERS: Emergency Provider Emergency Medicine; PCP Internal Medicine
DX: T85.528A Displacement of other gastrointestinal prosthetic devices, implants and grafts, initial encounter (principal); K21.9 Gastro-esophageal reflux disease without esophagitis; F32.A Depression, unspecified; F41.9 Anxiety disorder, unspecified; G40.909 Epilepsy, unspecified, not intractable, without status epilepticus; D64.9 Anemia, unspecified
CPT/HCPCS: 49465; 99283

== ENCOUNTER 2023-04-19 01:02 | Inpatient (IN) | payer OTHER, SELFPAY ==
[2023-04-19] VITALS (15 sets, daily range): BP systolic 112–158; BP diastolic 50–87; PULSE 60–99; RESP 13–20; TEMP 36.2–37; O2SAT 95–100
--- NOTE | ~2023-04-19 | XR_ITS ---
EXAMINATION: XR chest 1V portable INDICATION: Seizure TECHNIQUE: Portable AP chest at 1117 hours COMPARISON: 04/19/2023 FINDINGS: The lungs are free of acute opacities. No pleural effusion or pneumothorax. The cardiomedia stinal silhouette is normal. A dual-lead cardiac pacemaker of the left chest wall ends with leads in expected locations. Surgical clips project in the right neck. Ventriculoperitoneal shunt catheter tub ing courses over the left hemithorax. IMPRESSION: 1. No acute cardiopulmonary abnormality. Reviewed, dictated and finalized at location L. GER
--- NOTE | ~2023-04-19 | CT_ITS ---
EXAMINATION: CT brain wo con INDICATION: Head injury COMPARISON: 08/08/2022 TECHNIQUE: Standard unenhanced head CT. The dose-length product (DLP) was 1362.00 mGy-cm. The mA was adjusted according to patient size. Iterative reconstruction technique was employed. FINDINGS: No acute intraparenchymal hemorrhage. There are stable hyperdense masses along the right te ntorium, to the left of the falx between the parietal lobes, and in the left temporal fossa. No evide nce of acute infarction. There is chronic encephalomalacia involving the right temporal and right fro ntal lobes as well as the cerebellum. There are occipital and right temporal and bilateral frontal cr aniotomy defects. There is a ventriculostomy entering through the left parietal region and extending with its tip in the left lateral ventricle. An old ruby hole is noted in the left parietal skull. The re is chronic calcified extra-axial area in the left frontal region adjacent to the craniotomy defect . There is moderate periventricular and subcortical hypodensity on the right. The ventricles are norm al in size. Intracranial calcified cerebral atherosclerosis is noted. No mass effect or midline shift . The orbits and soft tissues are unremarkable. The visualized sinuses and mastoid air cells are well aerated. IMPRESSION: 1. Multiple chronic findings as detailed above without acute intracranial abnormality. 2. Age related findings. Reviewed, dictated and finalized at location F. IMPRESSION: 1. Multiple chronic findings as detailed above without acute intracranial abnor mality. 2. Age related findings.
--- NOTE | ~2023-04-19 | XR_ITS ---
EXAMINATION: XR pelvis 1-2V INDICATION: Abdominal pain TECHNIQUE: AP view the pelvis is obtained. COMPARISON: None available FINDINGS: Bone alignment is normal. There is no fracture. Ventriculoperitoneal shunt catheter tubing coils in the pelvis. There are no dilated loops of bowel. IMPRESSION: 1. No acute osseous abnormality. Reviewed, dictated and finalized at location F.
--- NOTE | ~2023-04-19 | CT_ITS ---
EXAMINATION: CT cervical spine wo con DATE: 04/19/2023 04:49 INDICATION: Head injury TECHNIQUE: Computed tomography (CT) of the cervical spine was performed without intravenous contrast. The dose-length product (DLP) was 113.49 mGy-cm. Automated exposure control and iterative reconstruc tion technique were employed. COMPARISON: None FINDINGS: Bone alignment is normal. There is no fracture. There is anterior and posterior fusion at C 3-4. The odontoid process is intact. There is mild loss of intervertebral disc space height throughou t the cervical spine. The vertebral body heights are maintained. The prevertebral soft tissues are no rmal. Surgical changes are noted in the skull as detailed in the head CT report. There is fibrous sharla nge of the posterior C1 ring. Multinodular goiter is noted. IMPRESSION: 1. Mild cervical spondylosis without acute findings. 2. Multinodular goiter. Consider nonemergent thyroid ultrasound for risk stratification. Reviewed, dictated and finalized at location F. IMPRESSION: 1. Mild cervical spondylosis without acute findings. 2. Multinodular goiter. Consider nonemergent thyroid ultrasound for risk strati fication.
--- NOTE | ~2023-04-19 | XR_ITS ---
EXAMINATION: XR chest 1V portable INDICATION: Chest pain TECHNIQUE: Portable AP chest at 0428 hours COMPARISON: 08/08/2022 FINDINGS: The lungs are free of acute opacities. No pleural effusion or pneumothorax. A dual-lead car diac pacemaker of the left chest wall ends with leads in expected locations. The cardiomediastinal si lhouette is normal. Surgical clips project in the right neck. Ventriculoperitoneal shunt catheter tub ing courses over the left hemithorax. IMPRESSION: 1. No acute cardiopulmonary abnormality. Reviewed, dictated and finalized at location F.
--- NOTE | ~2023-04-19 | CT_ITS ---
EXAMINATION: CT abdomen pelvis wo con DATE: 04/19/2023 04:48 INDICATION: Abdominal pain and diarrhea TECHNIQUE: Computed tomography (CT) of the abdomen and pelvis was performed without intravenous contr ast. The dose-length product (DLP) was 250.98 mGy-cm. Automated exposure control and iterative recons truction technique were employed. COMPARISON: 08/08/2022 FINDINGS: Minimal dependent atelectasis is present in the lung bases. The heart size is normal. The l iver, spleen, pancreas, and adrenal glands are normal. Stones are present in the nondistended gallbla dder. There is mild atrophy of the right kidney. There is a 12 mm hemorrhagic cyst of the right kidne y lower pole. The left kidney is unremarkable. No pathologically enlarged abdominal or pelvic lymph n odes are identified. No free intraperitoneal gas or evidence of bowel obstruction. The ventriculoperi toneal shunt catheter courses through the left anteromedial chest wall and abdomen, enters the left m id abdomen, and coils in the pelvis. There is trace ascites, likely due to FINISHING LAB TECHNICIAN shunt. There are calcif ied uterine fibroids and bilateral adnexal masses, also likely pedunculated fibroids. IMPRESSION: 1. No CT correlate for the patient's symptoms. 2. Cholelithiasis without evidence of cholecystitis. Reviewed, dictated and finalized at location F.
--- NOTE | 2023-04-19 01:30 | ED.FALL ---
HPI - Fall General Chief Complaint: Fall Stated Complaint: glf Time Seen by Provider: 04/19/23 01:30 History of Present Illness HPI Narrative: Patient is a 58-year-old female here after a ground level fall. History is obtained from nursing staff. Patient reportedly had a fall, unsure of when this occurred. She is typically alert and oriented times 1-2 at baseline. Patient unable to provide any history. Related Data Home Medications Medication Instructions Recorded Confirmed acetaminophen 325 mg tablet 650 mg feeding tube Q6H PRN Pain 08/08/22 08/08/22 (Scale Score 1-3) escitalopram oxalate 5 mg tablet 5 mg feeding tube DAILY 08/08/22 08/08/22 ferrous sulfate 325 mg (65 mg 325 mg feeding tube DAILY 08/08/22 08/08/22 iron) tablet ibuprofen 200 mg tablet 200 mg feeding tube Q6H PRN Pain 08/08/22 08/08/22 (Scale Score 1-3) levetiracetam 1,000 mg tablet 1,000 mg PO BID 08/08/22 08/08/22 multivitamin i-defcgyxl-ekfjfkm 1 tablet PO DAILY 08/08/22 08/08/22 fumarate 18 mg-vitamin K 25 mcg tablet omeprazole 20 mg capsule,delayed 20 mg feeding tube DAILY 08/08/22 08/08/22 release sodium di- and 1 tablet feeding tube BID 08/08/22 08/08/22 monophosphate-potassium phos monobasic 250 mg tablet (Z-Dkxl-Jopfnjy) thiamine HCl (vitamin B1) 100 mg 100 mg feeding tube DAILY 08/08/22 08/08/22 tablet trazodone 50 mg tablet 25 mg feeding tube Q6H PRN Anxiety 08/08/22 08/08/22 Allergies Allergy/AdvReac Type Severity Reaction Status Date / Time No Known Allergies Allergy Verified 08/05/22 01:58 Review of Systems Review of Systems: ROS unobtainable: Yes other (dementia) PMFSH Past Medical History Medical History (Updated 04/19/23 @ 05:52 by Jeimy Matthews MD) Anemia of chronic disease Cholelithiasis Chronic GERD Depression with anxiety Gastrostomy tube dependent Seizure disorder Uterine fibroid Surgical History Surgical History (Updated 08/08/22 @ 22:20 by Salud Martinez NP) H/O abdominal surgery History of appendectomy S/P ORIF (open reduction internal fixation) fracture Left elbow S/P DISHCLOTH FOLDER shunt Family History Family History (Updated 08/08/22 @ 22:47 by Luci Curry RN) Unknown No problems noted. Other Unknown family medical history Social History Social History (Updated 08/08/22 @ 22:21 by Salud Martinez NP) Social History: The patient is single and disabled. Clyde Matos a sibling is the power attorney general listed for the patient and another shoes salesperson is Nayeli montgomery who is listed as a sibling. Code status full code Smoking status: Never smoker Alcohol intake: never Substance use: never Spiritual care concerns: No Exam Narrative: GENERAL: Well-appearing, and in no acute distress. HEAD: Normocephalic, 2cm laceration to the left temporal region, no active bleeding. EYES: PERRLA and EOMI. ENT: Nares clear. Mucous membranes moist. NECK: Supple. CHEST: Clear to auscultation. No respiratory distress. HEART: Regular rate and rhythm. Normal peripheral pulses. ABDOMEN: Soft, nontender, nondistended. EXTREMITIES: Normal range of motion. No edema. SKIN: Warm, dry, no rash. NEURO: No focal deficits. Alert and oriented x1. Course Course Emergency Course: Chart review performed. Patient here after a fall. Triage vitals normal. Prior visits here for G tube complications. They note she is AOx2 at baseline. She does not appear to be on blood thinners per the chart. Patient seen evaluated, she appears to be confused, unsure if this is her baseline. She does have evidence of head injury. She is combative and fighting with staff. Will give IM Zyprexa. Will be CT head, C-spine, chest x-ray and pelvis x-ray. Patient more relaxed after Zyprexa and she has had to be cleaned several times by nursing staff after stooling herself. Will do CT abdomen pelvis to evaluate for possible intra-abdominal acute process. Basic lab work, UA ordered.
--- NOTE | 2023-04-19 01:35 | ECG_ITS ---
Measurements Intervals Ney Rate: 60 P: 66 OH: 185 QRS: 7 QRSD: 82 T: 34 QT: 396 QTc: 396 Interpretive Statements ELECTRONIC ATRIAL PACEMAKER LEFT VENTRICULAR HYPERTROPHY AND ST-T CHANGE T WAVE ABNORMALITY IN ANTERIOR LEADS- CONSIDER ISCHEMIA BASELINE WANDER- I, II, III, AVR, AVL, AVF, V5-V6 ABNORMAL ECG COMPARED TO ECG 08/08/2022 15:06:23 T WAVE DEVIATION NOW PRESENT Electronically Signed On 04-19-2023 9:29:16 CDT by Casper Palomino D.O.
[2023-04-19] MEDS: TETANUS,DIPHTHERIA,AC PERTUSSIS ADULT (0.5 ML) BOOSTRIX IM (01:59)
[2023-04-19] MEDS: OLANZapine 5 MG, WATER, STERILE FOR INJECTION 2.1 ML IM (02:00)
[2023-04-19 03:07] LABS: Appearance Urine Turbid (Clear); Bacteria Urine 4+ /hpf; Bilirubin Urine Negative (Negative); Blood Urine 3+ (Negative); Color Urine Dark Yellow (Yellow); Glucose Urine UA Negative (Negative); Ketones Urine Trace mg/dL (Negative); Leukocyte Esterase Ur 3+ LEU/UL (Negative); Need Manual Microscopic Reviewed; Nitrate Urine Negative (Negative); Non Pathogenic Casts >20; Protein Urine 2+ mg/dL (Negative); RBC Urine >100 /hpf (0-2); Specific Grav Ur 1.015 (1.001-1.035); Squamous Epithelial Cell Urine Moderate /hpf (Few); WBC Urine >100 /hpf; pH Urine 5.5 (5.0-9.0)
[2023-04-19 03:10] LABS: Add Urine Microscopic? YES
[2023-04-19 03:16] LABS: Basophils Absolute Auto 0.1 K/mm3 (0.0-0.1); Basophils Percent Auto 0.4 % (0.2-1.2); Eosinophils Absolute Auto 0.1 K/mm3 (0-0.3); Eosinophils Percent Auto 0.4 % (0-4.4); Hematocrit 39.1 % (37.0-47.0); Hemoglobin 12.4 g/dL (12.0-15.0); Immature Granulocyte Absolute 0.15 K/mm3 (0.00-0.031); Immature Granulocyte Percent A 0.8 % (0-0.5); Lymphocytes Absolute Auto 1.21 K/mm3 (0.9-3.2); Lymphocytes Percent Auto 6.6 % (18.3-44.2); Mean Corpuscular HGB Conc 31.7 g/dl (32-36); Mean Corpuscular Hemoglobin 27.3 pg (26-34); Mean Corpuscular Volume 85.9 fl (80-100); Mean Platelet Volume 10.4 fl (7.4-10.4); Monocytes Percent Auto 5.4 % (2.6-8.5); Neutrophils Absolute Auto 15.9 K/mm3 (1.3-6.7); Neutrophils Percent Auto 86.4 % (45.5-73.1); Platelet Count Result 296 k/mm3 (150-375); Red Blood Count 4.55 M/mm3 (4.2-5.4); Red Cell Distribution Width 13.1 % (11.5-14.5); White Blood Count 18.4 K/mm3 (4.5-10.0)
[2023-04-19 03:48] LABS: Alanine Aminotransferase 14 U/L (6-35); Albumin Level 4.9 g/dL (3.5-5.1); Alkaline Phosphatase 85 U/L (38-126); Anion Gap 11 mmol/L (8-16); Aspartate Amino Transferase 21 U/L (14-36); Bilirubin,Total 0.5 mg/dL (0.2-1.3); Blood Urea Nitrogen 25 mg/dL (7-17); Carbon Dioxide 22 mmol/L (22-30); Chloride 109 mmol/L (98-107); Estimated CRCL calculation 21 ml/min; Estimated Glomerular Filt Rate 31; Glucose 123 mg/dL (65-110); Potassium 4.6 mmol/L (3.4-5.0); Sodium 142 mmol/L (137-145); Troponin I < 0.012 ng/mL (0.000-0.034)
[2023-04-19] MEDS: HALOPERIDOL LACTATE 5 MG/ML VIAL 2 MG IV PUSH (03:50)
[2023-04-19] MEDS: SODIUM CHLORIDE 0.9% IV 1,000 ML 999 ML IV CONT (06:04)
[2023-04-19] MEDS: MIDAZOLAM HCL (*CRX) 2 MG/2 ML VIAL IV PUSH (07:06)
--- NOTE | 2023-04-19 08:45 | PC.NURSE ---
This patient, Deb Matos, was admitted to 2 Medical Room 240-01. Patient/family oriented to hospital policies and general routines including ID bracelet, bed and alarms, visiting hours, pain management, procedures, bathroom and other care routines, personal items, smoking policy, room service/diet, and visiting hours. Information on how to activate the Rapid Response Team has been discussed. Patient/Family are encouraged to report perceived risks to care and to ask questions if they do not understand what they are told or what they should do.
--- NOTE | 2023-04-19 10:05 | PC.NURSE ---
Unable to complete full head-to-toe assessment at this time due to patient orientation post medication administration from ER. Provider aware of current mental status.
--- NOTE | 2023-04-19 10:48 | PC.NURSE ---
Attempted to call POA and person to notify for further background information on patient. Voicemail left for callback.
--- NOTE | 2023-04-19 11:24 | PM.IMHP ---
H&P: HPI History of Present Illness Date/Time: 04/19/23 11:24 Chief Complaint: Altered mental status Narrative: 58-year-old female presented after a ground level fall. Is a intermediate resident. She is typically oriented times 1-2 at baseline. Further history could not be obtained due to her mental status. Review of Systems Review of Systems: ROS unobtainable: Yes unobtainable due to mental status PMFSH Past Medical History Medical History (Updated 04/19/23 @ 05:52 by Jeimy Matthews MD) Anemia of chronic disease Cholelithiasis Chronic GERD Depression with anxiety Gastrostomy tube dependent Seizure disorder Uterine fibroid Surgical History Surgical History (Updated 08/08/22 @ 22:20 by Salud Martinez NP) H/O abdominal surgery History of appendectomy S/P ORIF (open reduction internal fixation) fracture Left elbow S/P DIRECTOR OF SCIENTIFIC RESEARCH shunt Family History Family History (Updated 08/08/22 @ 22:47 by Luci Curry RN) Unknown No problems noted. Other Unknown family medical history Social History Social History (Updated 08/08/22 @ 22:21 by Salud Martinez NP) Social History: The patient is single and disabled. Clyde Matos a sibling is the power trial attorney listed for the patient and another account contact associate is Nayeli montgomery who is listed as a sibling. Code status full code Smoking status: Unknown if ever smoked Alcohol intake: never Substance use: never Spiritual care concerns: No Meds Home Medications and Allergies Home Medications Medication Instructions Recorded Confirmed Type acetaminophen 325 mg tablet 650 mg feeding tube Q6H PRN Pain 08/08/22 04/19/23 History (Scale Score 1-3) ferrous sulfate 325 mg (65 mg 325 mg feeding tube DAILY 08/08/22 04/19/23 History iron) tablet ibuprofen 200 mg tablet 200 mg feeding tube Q6H PRN Pain 08/08/22 04/19/23 History (Scale Score 1-3) levetiracetam 1,000 mg tablet 1,000 mg PO BID 08/08/22 04/19/23 History multivitamin e-jmjglbbn-vbebnzb 1 tablet PO DAILY 08/08/22 04/19/23 History fumarate 18 mg-vitamin K 25 mcg tablet omeprazole 20 mg capsule,delayed 20 mg feeding tube DAILY 08/08/22 04/19/23 History release thiamine HCl (vitamin B1) 100 mg 100 mg feeding tube DAILY 08/08/22 04/19/23 History tablet trazodone 50 mg tablet 25 mg feeding tube Q6H PRN Anxiety 08/08/22 04/19/23 History K-Phos Original See Rx Instructions .Route .COMPLEX 04/19/23 04/19/23 History haloperidol lactate 5 mg/mL 5 mg IM DAILY PRN Agitation 04/19/23 04/19/23 History injection solution lithium carbonate 150 mg capsule 150 mg PO BID 04/19/23 04/19/23 History Allergies Allergy/AdvReac Type Severity Reaction Status Date / Time No Known Allergies Allergy Verified 08/05/22 01:58 Vital Signs Vital Signs - 24 hr 04/19/23 01:02 04/19/23 06:09 04/19/23 06:54 Temperature 98.1 F Pulse Rate 84 82 92 Respiratory Rate 15 20 Blood Pressure 116/73 158/87 H 125/81 Pulse Oximetry 95 100 95 Oxygen Delivery Room Air 04/19/23 08:13 04/19/23 08:33 04/19/23 09:06 Temperature 97.7 F Pulse Rate 94 90 91 Respiratory Rate 13 18 16 Blood Pressure 119/64 120/60 149/64 H Pulse Oximetry 98 98 97 Oxygen Delivery 04/19/23 10:05 04/19/23 09:37 Temperature 97.7 F Pulse Rate 91 Respiratory Rate 16 Blood Pressure 149/64 H Pulse Oximetry 97 Oxygen Delivery Room Air Exam Narrative: GENERAL: Somnolent, and in no acute distress. HEAD: Normocephalic, 2cm laceration to the left temporal region, no active bleeding. EYES: PERRLA and EOMI. ENT: Nares clear.? Mucous membranes moist. NECK: Supple. CHEST: Clear to auscultation.? No respiratory distress. HEART: Regular rate and rhythm.? Normal peripheral pulses. ABDOMEN: Soft, nontender, nondistended. EXTREMITIES: Normal range of motion.? No edema. SKIN: Warm, dry, no rash. NEURO: No focal deficits.? Somnolent H&P: Results Labs Labs: Short CBC 04/19/23 Ra
[2023-04-19] MEDS: SODIUM CHLORIDE 0.9% IV 1,000 ML 100 ML IV CONT (16:24)
[2023-04-19 18:19] LABS: Lithium 0.8 mmol/L (0.6-1.2)
[2023-04-19 18:21] LABS: Creatine Kinase 161 U/L (30-135); Lactic Acid Reflex 1.7 mmol/L (0.7-2.0)
[2023-04-19] MEDS: levETIRAcetam 500 MG TABLET 1000 MG PO (22:27)
[2023-04-19] MEDS: traZODone HCL 25 MG TABLET PO (22:27)
[2023-04-19] MEDS: HALOPERIDOL LACTATE 5 MG/ML VIAL IM (23:16)
--- NOTE | 2023-04-19 23:37 | PC.NURSE ---
Patient becoming combative with staff, hitting staff. PRN Haldol given per order.
[2023-04-20] VITALS (9 sets, daily range): BP systolic 164–166; BP diastolic 63–71; PULSE 68–110; RESP 16–18; TEMP 36.2–37.2; O2SAT 100
[2023-04-20] MEDS: SODIUM CHLORIDE 0.9% IV 1,000 ML 100 ML IV CONT ×2 (01:09→14:22)
--- NOTE | 2023-04-20 03:15 | PC.NURSE ---
Daylight Savings Time For Daylight Savings Time Ending in the Fall - Clocks are moved back. For Daylight Savings Time Beginning in the Spring - Clocks are moved ahead. For [facility], the time of change occurs at 0200 hrs. Time is taken from the cafeteria server. This entry on the patient's chart recognizes the change in time reflected during documentation. Example: 2 entries for vital signs may be charted for 0200 hrs.
[2023-04-20] MEDS: HALOPERIDOL LACTATE 5 MG/ML VIAL IM ×2 (05:01→22:30)
[2023-04-20 05:36] LABS: Basophils Percent Auto 0.5 % (0.2-1.2); Eosinophils Absolute Auto 0.2 K/mm3 (0-0.3); Eosinophils Percent Auto 2.2 % (0-4.4); Hemoglobin 9.4 g/dL (12.0-15.0); Immature Granulocyte Absolute 0.03 K/mm3 (0.00-0.031); Immature Granulocyte Percent A 0.4 % (0-0.5); Lymphocytes Absolute Auto 1.74 K/mm3 (0.9-3.2); Lymphocytes Percent Auto 22.3 % (18.3-44.2); Mean Corpuscular HGB Conc 31.3 g/dl (32-36); Mean Corpuscular Hemoglobin 27.3 pg (26-34); Mean Corpuscular Volume 87.2 fl (80-100); Mean Platelet Volume 10.7 fl (7.4-10.4); Monocytes Absolute Auto 0.7 K/mm3 (0.1-0.6); Neutrophils Absolute Auto 5.1 K/mm3 (1.3-6.7); Neutrophils Percent Auto 65.6 % (45.5-73.1); Platelet Count Result 194 k/mm3 (150-375); Red Blood Count 3.44 M/mm3 (4.2-5.4); Red Cell Distribution Width 13.1 % (11.5-14.5); White Blood Count 7.8 K/mm3 (4.5-10.0)
[2023-04-20 05:54] LABS: Alanine Aminotransferase 11 U/L (6-35); Albumin Level 3.8 g/dL (3.5-5.1); Alkaline Phosphatase 65 U/L (38-126); Anion Gap 5 mmol/L (8-16); Aspartate Amino Transferase 26 U/L (14-36); Bilirubin,Total 0.4 mg/dL (0.2-1.3); Blood Urea Nitrogen 18 mg/dL (7-17); Calcium 8.7 mg/dL (8.4-10.2); Carbon Dioxide 21 mmol/L (22-30); Chloride 117 mmol/L (98-107); Estimated CRCL calculation 32 ml/min; Estimated Glomerular Filt Rate 51; Glucose 93 mg/dL (65-110); Potassium 4.5 mmol/L (3.4-5.0); Sodium 143 mmol/L (137-145)
[2023-04-20 07:50] LABS: Basophils Percent Auto 0.5 % (0.2-1.2); Eosinophils Absolute Auto 0.2 K/mm3 (0-0.3); Eosinophils Percent Auto 2.4 % (0-4.4); Hematocrit 29.7 % (37.0-47.0); Hemoglobin 9.3 g/dL (12.0-15.0); Immature Granulocyte Absolute 0.03 K/mm3 (0.00-0.031); Immature Granulocyte Percent A 0.4 % (0-0.5); Lymphocytes Absolute Auto 1.79 K/mm3 (0.9-3.2); Lymphocytes Percent Auto 22.7 % (18.3-44.2); Mean Corpuscular HGB Conc 31.3 g/dl (32-36); Mean Corpuscular Hemoglobin 27.3 pg (26-34); Mean Corpuscular Volume 87.1 fl (80-100); Mean Platelet Volume 10.3 fl (7.4-10.4); Monocytes Absolute Auto 0.7 K/mm3 (0.1-0.6); Monocytes Percent Auto 9.3 % (2.6-8.5); Neutrophils Absolute Auto 5.1 K/mm3 (1.3-6.7); Neutrophils Percent Auto 64.7 % (45.5-73.1); Platelet Count Result 158 k/mm3 (150-375); Red Blood Count 3.41 M/mm3 (4.2-5.4); White Blood Count 7.9 K/mm3 (4.5-10.0)
--- NOTE | 2023-04-20 10:44 | PCPTNOTE ---
Pt drowsy, refuses therapy stating not feeling well. Offered to walk for stiffness, or sit edge of bed, pt cont to state she doesn't feel good. Will reattempt therapy at a later time.
--- NOTE | 2023-04-20 10:47 | PCOTNOTE ---
Attempted OT evaluation. Pt drowsy, refuses therapy. Will follow.
[2023-04-20] MEDS: THIAMINE HCL 200 MG/2 ML VIAL 100 MG IV PUSH (11:20)
[2023-04-20] MEDS: PANTOPRAZOLE SODIUM IV 40 MG VIAL IV PUSH (11:20)
[2023-04-20] MEDS: levETIRAcetam 1000MG/NACL100ML 1,000 MG/100 ML BAG 400 MG IVPB (11:22)
--- NOTE | 2023-04-20 12:48 | PM.IMPN ---
Progress Note: A&P Assessment and Plan (1) TITA (acute kidney injury): Code(s): N17.9 - Acute kidney failure, unspecified Status: Acute (2) Fall: Qualifiers: Encounter type: initial encounter Qualified Code(s): W19.XXXA - Unspecified fall, initial encounter Code(s): W19.XXXA - Unspecified fall, initial encounter Status: Acute (3) Acute urinary tract infection: Code(s): N39.0 - Urinary tract infection, site not specified Status: Acute (4) Facial laceration: Qualifiers: Encounter type: initial encounter Qualified Code(s): S01.81XA - Laceration without foreign body of other part of head, initial encounter Code(s): S01.81XA - Laceration without foreign body of other part of head, initial encounter Status: Acute (5) Acute metabolic encephalopathy: Code(s): G93.41 - Metabolic encephalopathy Status: Acute (6) Seizure disorder: Code(s): G40.909 - Epilepsy, unspecified, not intractable, without status epilepticus Status: Chronic (7) Depression with anxiety: Code(s): F41.8 - Other specified anxiety disorders Status: Acute Plan Ground level fall Acute encephalopathy with agitation combative and fighting with staff received Zyprexa in the ER. On Haldol p.r.n. facial laceration UTI on Rocephin leukocytosis 18,000 on admission this is resolved. Urine culture with E coli sensitivity pending blood culture x2 is negative so far TITA with creatinine of 2 on admission baseline 0.9 renal function is improving DVT prophylaxis Lovenox Seizure disorder resume home medication change seizure medication to IV until more consistent oral intake Status post pacemaker implantation Anemia chronic disease Anxiety depression History of G-tube dependence in the past now G-tube has been removed. On oral mechanical soft diet Status post NATURAL GAS PLANT SUPERVISOR shunt Code status full code senior living resident Subjective Date/time seen: 04/20/23 12:48 Interval history: Patient more awake today. Answering questions. Agitated overnight needing Haldol. Currently calm and cooperative. Discussed with nursing staff. Review of Systems Review of Systems: All systems reviewed & are unremarkable except as noted in HPI and below Exam Narrative: GENERAL: More awake conversant and in no acute distress. HEAD: Normocephalic, 2cm laceration to the left temporal region, no active bleeding. EYES: PERRLA and EOMI. ENT: Nares clear.? Mucous membranes moist. NECK: Supple. CHEST: Clear to auscultation.? No respiratory distress. HEART: Regular rate and rhythm.? Normal peripheral pulses. ABDOMEN: Soft, nontender, nondistended. EXTREMITIES: Normal range of motion.? No edema. SKIN: Warm, dry, no rash. NEURO: No focal deficits.? Somnolent Objective Data Vital Signs Vital Signs: Vital Signs - 24 hr 04/19/23 14:00 04/19/23 16:25 04/19/23 16:48 Temperature 98.6 F Pulse Rate 60 Respiratory Rate 18 Blood Pressure 112/50 L Pulse Oximetry 100 Oxygen Delivery Room Air 04/19/23 16:00 04/19/23 20:00 04/19/23 22:00 Temperature 97.2 F L Pulse Rate 60 62 89 Respiratory Rate 16 Blood Pressure 126/74 Pulse Oximetry 100 Oxygen Delivery 04/20/23 00:00 04/20/23 04:12 04/20/23 04:00 Temperature 97.2 F L Pulse Rate 88 90 110 H Respiratory Rate 16 Blood Pressure 164/63 H Pulse Oximetry 100 Oxygen Delivery 04/20/23 10:58 Temperature Pulse Rate Respiratory Rate Blood Pressure Pulse Oximetry Oxygen Delivery Room Air Intake/Output Intake/Output: Intake & Output 04/17/23 04/18/23 04/19/23 04/20/23 23:59 23:59 23:59 22:59 Intake Total 1050 1510 Balance 1050 1510 Meds/Results Medications: Active Medications Generic Name Dose Route Start Last Admin Trade Name Freq PRN Reason Stop Dose Admin Acetaminophen 650 mg 04/19/23 15:34 Acetaminophen Elixir 325 Mg/10.15 Ml Udc PO Q6H PRN
[2023-04-20] MEDS: levETIRAcetam 1000MG/NACL100ML 1,000 MG/100 ML BAG 100 MG IVPB (21:14)
[2023-04-20] MEDS: traZODone HCL 25 MG TABLET PO (21:14)
[2023-04-20] MEDS: LORazepam INJ (*CRX) 2 MG/ML VIAL 1 MG IV PUSH (23:29)
[2023-04-20] MEDS: diphenhydrAMINE HCl INJ 50 MG/ML VIAL 25 MG IV PUSH (23:29)
[2023-04-21] VITALS: PULSE 95
[2023-04-21 04:00] VITALS: PULSE 100
[2023-04-21 05:26] VITALS: BP 172/66; PULSE 76; RESP 18; TEMP 36.1; O2SAT 100
[2023-04-21 05:56] LABS: Basophils Percent Auto 0.5 % (0.2-1.2); Eosinophils Absolute Auto 0.2 K/mm3 (0-0.3); Eosinophils Percent Auto 2.2 % (0-4.4); Hematocrit 30.7 % (37.0-47.0); Hemoglobin 9.7 g/dL (12.0-15.0); Immature Granulocyte Absolute 0.04 K/mm3 (0.00-0.031); Immature Granulocyte Percent A 0.5 % (0-0.5); Lymphocytes Absolute Auto 1.28 K/mm3 (0.9-3.2); Lymphocytes Percent Auto 16.9 % (18.3-44.2); Mean Corpuscular HGB Conc 31.6 g/dl (32-36); Mean Corpuscular Hemoglobin 27.1 pg (26-34); Mean Corpuscular Volume 85.8 fl (80-100); Mean Platelet Volume 10.5 fl (7.4-10.4); Monocytes Absolute Auto 0.6 K/mm3 (0.1-0.6); Monocytes Percent Auto 8.4 % (2.6-8.5); Neutrophils Absolute Auto 5.4 K/mm3 (1.3-6.7); Neutrophils Percent Auto 71.5 % (45.5-73.1); Platelet Count Result 194 k/mm3 (150-375); Red Blood Count 3.58 M/mm3 (4.2-5.4); Red Cell Distribution Width 12.8 % (11.5-14.5); White Blood Count 7.6 K/mm3 (4.5-10.0)
[2023-04-21 06:14] LABS: Alanine Aminotransferase 14 U/L (6-35); Albumin Level 4.1 g/dL (3.5-5.1); Alkaline Phosphatase 66 U/L (38-126); Anion Gap 8 mmol/L (8-16); Aspartate Amino Transferase 32 U/L (14-36); Bilirubin,Total 0.4 mg/dL (0.2-1.3); Blood Urea Nitrogen 10 mg/dL (7-17); Calcium 9.3 mg/dL (8.4-10.2); Carbon Dioxide 23 mmol/L (22-30); Chloride 112 mmol/L (98-107); Estimated CRCL calculation 37 ml/min; Estimated Glomerular Filt Rate > 60; Glucose 96 mg/dL (65-110); Magnesium 1.6 mg/dL (1.6-2.3); Potassium 4.7 mmol/L (3.4-5.0); Sodium 143 mmol/L (137-145)
[2023-04-21] MEDS: ENOXAPARIN 30 MG/0.3 ML SYRINGE SUB-Q (09:20)
[2023-04-21] MEDS: levETIRAcetam 1000MG/NACL100ML 1,000 MG/100 ML BAG 100 MG IVPB ×2 (09:20→20:35)
[2023-04-21] MEDS: PANTOPRAZOLE SODIUM IV 40 MG VIAL IV PUSH (09:20)
[2023-04-21] MEDS: THIAMINE HCL 200 MG/2 ML VIAL 100 MG IV PUSH (09:20)
[2023-04-21 12:00] VITALS: BP 155/73
[2023-04-21 13:26] VITALS: BMI 18.9
--- NOTE | 2023-04-21 13:33 | PM.IMPN ---
Progress Note: A&P Assessment and Plan (1) TITA (acute kidney injury): Code(s): N17.9 - Acute kidney failure, unspecified Status: Acute (2) Fall: Qualifiers: Encounter type: initial encounter Qualified Code(s): W19.XXXA - Unspecified fall, initial encounter Code(s): W19.XXXA - Unspecified fall, initial encounter Status: Acute (3) Acute urinary tract infection: Code(s): N39.0 - Urinary tract infection, site not specified Status: Acute (4) Facial laceration: Qualifiers: Encounter type: initial encounter Qualified Code(s): S01.81XA - Laceration without foreign body of other part of head, initial encounter Code(s): S01.81XA - Laceration without foreign body of other part of head, initial encounter Status: Acute (5) Acute metabolic encephalopathy: Code(s): G93.41 - Metabolic encephalopathy Status: Acute (6) Seizure disorder: Code(s): G40.909 - Epilepsy, unspecified, not intractable, without status epilepticus Status: Chronic (7) Depression with anxiety: Code(s): F41.8 - Other specified anxiety disorders Status: Acute Plan Ground level fall Acute encephalopathy with agitation combative and fighting with staff received Zyprexa in the ER. On Haldol p.r.n. facial laceration UTI on Rocephin leukocytosis 18,000 on admission this is resolved. Urine culture with E coli sensitivity ESBL. Blood culture x2 is negative so far a.m. switch antibiotic to ertapenem TITA with creatinine of 2 on admission baseline 0.9 renal function is improving DVT prophylaxis Lovenox Seizure disorder resume home medication change seizure medication to IV until more consistent oral intake Status post pacemaker implantation Anemia chronic disease Anxiety depression History of G-tube dependence in the past now G-tube has been removed. 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 Culture report reviewed. No overnight events reported Review of Systems Review of Systems: ROS unobtainable: Yes unobtainable due to mental status Exam Narrative: GENERAL: More awake conversant and in no acute distress. HEAD: Normocephalic, 2cm laceration to the left temporal region, no active bleeding. EYES: PERRLA and EOMI. ENT: Nares clear.? Mucous membranes moist. NECK: Supple. CHEST: Clear to auscultation.? No respiratory distress. HEART: Regular rate and rhythm.? Normal peripheral pulses. ABDOMEN: Soft, nontender, nondistended. EXTREMITIES: Normal range of motion.? No edema. SKIN: Warm, dry, no rash. NEURO: No focal deficits.? Somnolent Objective Data Vital Signs Vital Signs: Vital Signs - 24 hr 04/20/23 14:00 04/20/23 16:33 04/20/23 20:48 Temperature 98.9 F 97.2 F L Pulse Rate 95 92 78 Respiratory Rate 16 18 Blood Pressure 166/71 H Pulse Oximetry 100 100 Oxygen Delivery 04/20/23 20:00 04/20/23 20:00 04/21/23 00:00 Temperature Pulse Rate 88 95 Respiratory Rate Blood Pressure Pulse Oximetry Oxygen Delivery Room Air 04/21/23 05:26 04/21/23 04:00 04/21/23 08:00 Temperature 97.0 F L Pulse Rate 76 100 Respiratory Rate 18 Blood Pressure 172/66 H Pulse Oximetry 100 Oxygen Delivery Room Air 04/21/23 12:00 Temperature Pulse Rate Respiratory Rate Blood Pressure 155/73 H Pulse Oximetry Oxygen Delivery Intake/Output Intake/Output: Intake & Output 04/19/23 04/20/23 04/20/23 04/21/23 00:59 00:59 23:59 23:59 Intake Total 630 Balance 630 Meds/Results Medications: Active Medications Generic Name Dose Route Start Last Admin Trade Name Freq PRN Reason Stop Dose Admin Acetaminophen 650 mg 04/19/23 15:34 Acetaminophen Elixir 325 Mg/10.15 Ml Udc PO Q6H PRN Pain (Scale Score 1-3) Enoxaparin Sodium 30
[2023-04-21] MEDS: ACETAMINOPHEN ELIXIR 325 MG/10.15 ML UDC 650 MG PO (13:46)
[2023-04-21 14:14] VITALS: BP 154/71; PULSE 61; RESP 16; TEMP 36.9; O2SAT 100
--- NOTE | 2023-04-21 14:15 | PCOTNOTE ---
Attempted occupational therapy evaluation, pt was unarousable. RN and HAND II BLOCKER reported she just fell asleep. Following.
[2023-04-21] MEDS: ERTAPENEM 1 GM/NS 50 ML 1 GM/50 ML BAG IVPB (14:32)
[2023-04-21 20:06] VITALS: BP 140/62; PULSE 82; RESP 18; TEMP 36.2; O2SAT 94
[2023-04-21] MEDS: traZODone HCL 25 MG TABLET PO (20:26)
--- NOTE | 2023-04-21 21:29 | PC.NURSE ---
Pt lost IV access prior to receiving IV Keppra, one time PO ordered. Will attempt to give crushed in pudding to patient.
[2023-04-21] MEDS: levETIRAcetam 500 MG TABLET 1000 MG PO (21:41)
[2023-04-22 04:57] VITALS: BP 127/89; PULSE 82; RESP 18; TEMP 36.3; O2SAT 94
[2023-04-22 06:20] LABS: Basophils Percent Auto 0.6 % (0.2-1.2); Eosinophils Absolute Auto 0.2 K/mm3 (0-0.3); Eosinophils Percent Auto 2.3 % (0-4.4); Hematocrit 30.2 % (37.0-47.0); Hemoglobin 9.5 g/dL (12.0-15.0); Immature Granulocyte Absolute 0.02 K/mm3 (0.00-0.031); Immature Granulocyte Percent A 0.3 % (0-0.5); Lymphocytes Absolute Auto 1.38 K/mm3 (0.9-3.2); Lymphocytes Percent Auto 19.9 % (18.3-44.2); Mean Corpuscular HGB Conc 31.5 g/dl (32-36); Mean Corpuscular Hemoglobin 27.1 pg (26-34); Mean Corpuscular Volume 86.3 fl (80-100); Mean Platelet Volume 10.7 fl (7.4-10.4); Monocytes Absolute Auto 0.6 K/mm3 (0.1-0.6); Monocytes Percent Auto 8.6 % (2.6-8.5); Neutrophils Absolute Auto 4.8 K/mm3 (1.3-6.7); Neutrophils Percent Auto 68.3 % (45.5-73.1); Platelet Count Result 212 k/mm3 (150-375); Red Cell Distribution Width 13.1 % (11.5-14.5)
[2023-04-22 06:37] LABS: Alanine Aminotransferase 15 U/L (6-35); Albumin Level 3.9 g/dL (3.5-5.1); Alkaline Phosphatase 64 U/L (38-126); Anion Gap 5 mmol/L (8-16); Aspartate Amino Transferase 26 U/L (14-36); Bilirubin,Total 0.3 mg/dL (0.2-1.3); Blood Urea Nitrogen 9 mg/dL (7-17); Calcium 9.2 mg/dL (8.4-10.2); Carbon Dioxide 27 mmol/L (22-30); Chloride 111 mmol/L (98-107); Estimated CRCL calculation 37 ml/min; Estimated Glomerular Filt Rate > 60; Glucose 92 mg/dL (65-110); Magnesium 1.8 mg/dL (1.6-2.3); Potassium 5.6 mmol/L (3.4-5.0); Sodium 143 mmol/L (137-145)
[2023-04-22 08:09] VITALS: RESP 18; O2SAT 94
[2023-04-22] MEDS: levETIRAcetam 500 MG TABLET 1000 MG PO ×2 (09:31→20:00)
[2023-04-22] MEDS: THIAMINE HCL 100 MG TABLET PO (09:32)
[2023-04-22] MEDS: MULTIVITAMINS THERAPEUTIC TAB (*BKC) 1 TABLET PO (09:32)
[2023-04-22] MEDS: ENOXAPARIN 30 MG/0.3 ML SYRINGE SUB-Q (09:33)
--- NOTE | 2023-04-22 11:17 | PCPTNOTE ---
Patient refused treatment this session. Patient reported she did not feel well and did not feel like doing therapy today.
[2023-04-22] MEDS: ERTAPENEM 1 GM/NS 50 ML 1 GM/50 ML BAG IVPB (13:45)
--- NOTE | 2023-04-22 14:24 | PM.IMPN ---
Progress Note: A&P Assessment and Plan (1) TITA (acute kidney injury): Code(s): N17.9 - Acute kidney failure, unspecified Status: Acute (2) Fall: Qualifiers: Encounter type: initial encounter Qualified Code(s): W19.XXXA - Unspecified fall, initial encounter Code(s): W19.XXXA - Unspecified fall, initial encounter Status: Acute (3) Acute urinary tract infection: Code(s): N39.0 - Urinary tract infection, site not specified Status: Acute (4) Facial laceration: Qualifiers: Encounter type: initial encounter Qualified Code(s): S01.81XA - Laceration without foreign body of other part of head, initial encounter Code(s): S01.81XA - Laceration without foreign body of other part of head, initial encounter Status: Acute (5) Acute metabolic encephalopathy: Code(s): G93.41 - Metabolic encephalopathy Status: Acute (6) Seizure disorder: Code(s): G40.909 - Epilepsy, unspecified, not intractable, without status epilepticus Status: Chronic (7) Depression with anxiety: Code(s): F41.8 - Other specified anxiety disorders Status: Acute Plan Ground level fall Acute encephalopathy with agitation combative and fighting with staff received Zyprexa in the ER. On Haldol p.r.n. facial laceration UTI on Rocephin leukocytosis 18,000 on admission this is resolved. Urine culture with E coli sensitivity ESBL. Blood culture x2 is negative so far a.m. switch antibiotic to ertapenem day 2. Plan to switch to oral Bactrim when ready for discharge. Held off today due to hyperkalemia TITA with creatinine of 2 on admission baseline 0.9 renal function is improving DVT prophylaxis Lovenox Seizure disorder resume home medication change seizure medication to IV until more consistent oral intake Status post pacemaker implantation Anemia chronic disease Anxiety depression History of G-tube dependence in the past now G-tube has been removed. On oral mechanical soft diet Status post ANALYTICS SPECIALIST shunt Code status full code correction resident Subjective Date/time seen: 04/22/23 14:24 Interval history: Patient more awake today. Conversive. Denies any new complaint. She thinks she is in [facility] Review of Systems Review of Systems: All systems reviewed & are unremarkable except as noted in HPI and below Exam Narrative: GENERAL: More awake conversant and in no acute distress. HEAD: Normocephalic, 2cm laceration to the left temporal region, no active bleeding. EYES: PERRLA and EOMI. ENT: Nares clear.? Mucous membranes moist. NECK: Supple. CHEST: Clear to auscultation.? No respiratory distress. HEART: Regular rate and rhythm.? Normal peripheral pulses. ABDOMEN: Soft, nontender, nondistended. EXTREMITIES: Normal range of motion.? No edema. SKIN: Warm, dry, no rash. NEURO: No focal deficits.? More awake and conversant still confused Objective Data Vital Signs Vital Signs: Vital Signs - 24 hr 04/21/23 20:06 04/22/23 04:57 04/22/23 08:09 Temperature 97.2 F L 97.4 F L Pulse Rate 82 82 Respiratory Rate 18 18 18 Blood Pressure 140/62 127/89 Pulse Oximetry 94 94 94 Oxygen Delivery Room Air Intake/Output Intake/Output: Intake & Output 04/20/23 04/20/23 04/21/23 04/22/23 00:59 23:59 23:59 23:59 Intake Total 1020 1220 Output Total 800 300 Balance 220 920 Meds/Results Medications: Active Medications Generic Name Dose Route Start Last Admin Trade Name Freq PRN Reason Stop Dose Admin Acetaminophen 650 mg 04/19/23 15:34 04/21/23 13:46 Acetaminophen Elixir 325 Mg/10.15 Ml Udc PO 650 mg Q6H PRN Administration Pain (Scale Score 1-3) Enoxaparin Sodium 40 mg 04/23/23 09:00 Enoxaparin 40 Mg/0.4 Ml Syringe SUB-Q DAILY [facility] Ferrous Sulfate 325 mg 04/20/23 09:00 04/20/23 11:18 Ferrous Sulfate [address] PO Not Given DAILY SHAM[facility]A Haloperidol Lactate 5 mg 04/19/23 15:12
[2023-04-22 14:32] VITALS: BP 137/66; PULSE 90; RESP 20; TEMP 36.7; O2SAT 100
--- NOTE | 2023-04-22 15:03 | PC.NURSE ---
On 04/22/23, the student, [Elpidio Arauz], provided care and completed [facility] documentation on this patient. I have reviewed the student's documentation and agree with the findings.
[2023-04-22] MEDS: HALOPERIDOL LACTATE 5 MG/ML VIAL IM (16:15)
[2023-04-22] MEDS: traZODone HCL 25 MG TABLET PO (20:00)
[2023-04-22 22:00] VITALS: BP 176/68; PULSE 98; RESP 18; TEMP 36.4; O2SAT 100
--- NOTE | 2023-04-22 23:58 | PC.NURSE ---
vitals delayed until midnight r/t patient uncooperative/AMS
[2023-04-23 04:46] VITALS: BP 160/63; PULSE 105; RESP 18; TEMP 36.4; O2SAT 100
[2023-04-23 05:30] LABS: Basophils Percent Auto 0.6 % (0.2-1.2); Eosinophils Absolute Auto 0.1 K/mm3 (0-0.3); Eosinophils Percent Auto 1.2 % (0-4.4); Hematocrit 31.4 % (37.0-47.0); Immature Granulocyte Absolute 0.04 K/mm3 (0.00-0.031); Immature Granulocyte Percent A 0.6 % (0-0.5); Lymphocytes Absolute Auto 1.37 K/mm3 (0.9-3.2); Lymphocytes Percent Auto 18.9 % (18.3-44.2); Mean Corpuscular HGB Conc 31.8 g/dl (32-36); Mean Corpuscular Hemoglobin 27.5 pg (26-34); Mean Corpuscular Volume 86.3 fl (80-100); Mean Platelet Volume 10.5 fl (7.4-10.4); Monocytes Absolute Auto 0.6 K/mm3 (0.1-0.6); Monocytes Percent Auto 8.2 % (2.6-8.5); Neutrophils Absolute Auto 5.1 K/mm3 (1.3-6.7); Neutrophils Percent Auto 70.5 % (45.5-73.1); Platelet Count Result 223 k/mm3 (150-375); Red Blood Count 3.64 M/mm3 (4.2-5.4); Red Cell Distribution Width 13.1 % (11.5-14.5); White Blood Count 7.2 K/mm3 (4.5-10.0)
[2023-04-23 05:35] LABS: Alanine Aminotransferase 15 U/L (6-35); Albumin Level 4.2 g/dL (3.5-5.1); Alkaline Phosphatase 73 U/L (38-126); Anion Gap 8 mmol/L (8-16); Aspartate Amino Transferase 23 U/L (14-36); Bilirubin,Total 0.4 mg/dL (0.2-1.3); Blood Urea Nitrogen 7 mg/dL (7-17); Carbon Dioxide 24 mmol/L (22-30); Chloride 110 mmol/L (98-107); Estimated CRCL calculation 37 ml/min; Estimated Glomerular Filt Rate > 60; Glucose 117 mg/dL (65-110); Potassium 4.4 mmol/L (3.4-5.0); Sodium 142 mmol/L (137-145)
[2023-04-23] MEDS: THIAMINE HCL 100 MG TABLET PO (09:28)
[2023-04-23] MEDS: levETIRAcetam 500 MG TABLET 1000 MG PO ×2 (09:28→20:04)
[2023-04-23] MEDS: MULTIVITAMINS THERAPEUTIC TAB (*BKC) 1 TABLET PO (09:28)
[2023-04-23] MEDS: PANTOPRAZOLE 40 MG TABLET PO (09:28)
[2023-04-23] MEDS: ENOXAPARIN 40 MG/0.4 ML SYRINGE SUB-Q (09:29)
[2023-04-23 14:00] VITALS: BP 156/62; PULSE 100; RESP 20; TEMP 36.4; O2SAT 100
--- NOTE | 2023-04-23 14:34 | PM.IMPN ---
Progress Note: A&P Assessment and Plan (1) TITA (acute kidney injury): Code(s): N17.9 - Acute kidney failure, unspecified Status: Acute (2) Fall: Qualifiers: Encounter type: initial encounter Qualified Code(s): W19.XXXA - Unspecified fall, initial encounter Code(s): W19.XXXA - Unspecified fall, initial encounter Status: Acute (3) Acute urinary tract infection: Code(s): N39.0 - Urinary tract infection, site not specified Status: Acute (4) Facial laceration: Qualifiers: Encounter type: initial encounter Qualified Code(s): S01.81XA - Laceration without foreign body of other part of head, initial encounter Code(s): S01.81XA - Laceration without foreign body of other part of head, initial encounter Status: Acute (5) Acute metabolic encephalopathy: Code(s): G93.41 - Metabolic encephalopathy Status: Acute (6) Seizure disorder: Code(s): G40.909 - Epilepsy, unspecified, not intractable, without status epilepticus Status: Chronic (7) Depression with anxiety: Code(s): F41.8 - Other specified anxiety disorders Status: Acute Plan Ground level fall Acute encephalopathy with agitation combative and fighting with staff received Zyprexa in the ER. On Haldol p.r.n. facial laceration UTI on Rocephin leukocytosis 18,000 on admission this is resolved. Urine culture with E coli sensitivity ESBL. Blood culture x2 is negative so far a.m. switch antibiotic to ertapenem day 2. Plan to switch to oral Bactrim when ready for discharge. Held off today due to hyperkalemia TITA with creatinine of 2 on admission baseline 0.9 renal function is improving DVT prophylaxis Lovenox Seizure disorder resume home medication change seizure medication to IV until more consistent oral intake Status post pacemaker implantation Anemia chronic disease Anxiety depression History of G-tube dependence in the past now G-tube has been removed. On oral mechanical soft diet Status post RECREATION AIDE shunt Code status full code assisted resident 04/23/23: Will DC tomorrow Time Spent With Patient Time with patient: 25 - 35 minutes Subjective Date/time seen: 04/23/23 14:34 Interval history: Patient more awake today. Conversive. Denies any new complaint. She thinks she is in [place] Review of Systems Review of Systems: All systems reviewed & are unremarkable except as noted in HPI and below ROS unobtainable: Yes unobtainable due to mental status Exam Narrative: GENERAL: More awake conversant and in no acute distress. HEAD: Normocephalic, 2cm laceration to the left temporal region, no active bleeding. EYES: PERRLA and EOMI. ENT: Nares clear.? Mucous membranes moist. NECK: Supple. CHEST: Clear to auscultation.? No respiratory distress. HEART: Regular rate and rhythm.? Normal peripheral pulses. ABDOMEN: Soft, nontender, nondistended. EXTREMITIES: Normal range of motion.? No edema. SKIN: Warm, dry, no rash. NEURO: No focal deficits.? More awake and conversant still confused Objective Data Vital Signs Vital Signs: Vital Signs - 24 hr 04/22/23 22:00 04/23/23 04:46 04/23/23 08:00 Temperature 97.5 F L 97.6 F Pulse Rate 98 105 H Respiratory Rate 18 18 Blood Pressure 176/68 H 160/63 H Pulse Oximetry 100 100 Oxygen Delivery Room Air Intake/Output Intake/Output: Intake & Output 04/20/23 04/21/23 04/22/23 04/23/23 23:59 23:59 23:59 23:59 Intake Total 1020 2050 510 Output Total 800 1550 150 Balance 220 500 360 Meds/Results Medications: Active Medications Generic Name Dose Route Start Last Admin Trade Name Freq PRN Reason Stop Dose Admin Acetaminophen 650 mg 04/19/23 15:34 04/21/23 13:46 Acetaminophen Elixir 325 Mg/10.15 Ml Udc PO 650 mg Q6H PRN Administration Pain (Scale Score 1-3) Enoxaparin Sodium 40 mg 04/23/23 09:00 04/23/23 09:29 Enoxaparin 40 Mg/0.4 Ml Syringe SUB-Q 40 mg
[2023-04-23] MEDS: SULFAMETHOXAZOLE/TRIMETHOPRIM 800/160 MG DS TABLET 1 TAB PO ×2 (17:22→20:04)
[2023-04-23 19:37] VITALS: BP 161/62; PULSE 75; RESP 18; TEMP 36.4; O2SAT 95
[2023-04-23] MEDS: HALOPERIDOL LACTATE 5 MG/ML VIAL IM (20:41)
[2023-04-23 22:55] VITALS: O2SAT 96
[2023-04-24] VITALS (7 sets, daily range): BP systolic 143–178; BP diastolic 36–67; PULSE 81–114; RESP 17–20; TEMP 36.9–37.4; O2SAT 97–100
[2023-04-24] MEDS: SULFAMETHOXAZOLE/TRIMETHOPRIM 800/160 MG DS TABLET 1 TAB PO ×2 (08:35→23:18)
[2023-04-24] MEDS: MULTIVITAMINS THERAPEUTIC TAB (*BKC) 1 TABLET PO (08:35)
[2023-04-24] MEDS: ENOXAPARIN 40 MG/0.4 ML SYRINGE SUB-Q (08:35)
[2023-04-24] MEDS: PANTOPRAZOLE 40 MG TABLET PO (08:35)
[2023-04-24] MEDS: levETIRAcetam 500 MG TABLET 1000 MG PO ×2 (08:35→23:17)
[2023-04-24] MEDS: THIAMINE HCL 100 MG TABLET PO (08:35)
[2023-04-24] MEDS: levETIRAcetam 1000MG/NACL100ML 1,000 MG/100 ML BAG 400 MG IVPB (11:03)
[2023-04-24] MEDS: LORazepam INJ (*CRX) 2 MG/ML VIAL 1 MG IV PUSH (11:04)
--- NOTE | 2023-04-24 11:06 | ECG_ITS ---
Measurements Intervals [place] Rate: 109 P: 43 CA: 163 QRS: 8 QRSD: 88 T: 52 QT: 310 QTc: 419 Interpretive Statements SINUS TACHYCARDIA VOLTAGE CRITERIA FOR LVH BORDERLINE ST-T WAVE ABNORMALITY- DIFFUSE LEADS BASELINE ARTIFACT- I, III, AVR, AVL, AVF, V1-V6 ABNORMAL ECG COMPARED TO ECG 04/19/2023 02:03:19 SINUS TACHYCARDIA NOW PRESENT Electronically Signed On 04-24-2023 11:33:49 CLIENT TECHNICAL SPECIALIST by Casper Palomino D.O.
[2023-04-24] MEDS: IPRATROPIUM BR 0.02% INH SOLN 0.5 MG/2.5 ML VIAL INHALATION (11:16)
[2023-04-24] MEDS: ALBUTEROL SULFATE NEB 2.5 MG/3 ML INH INHALATION (11:16)
[2023-04-24] MEDS: SODIUM CHLORIDE 0.9% IV 1,000 ML 999 ML IV CONT (11:20)
[2023-04-24 11:30] LABS: Glucose Point of Care 157 mg/dl (65-105)
--- NOTE | 2023-04-24 11:42 | PC.NURSE ---
Carry All Driver at bedside during rapid response. Dr. Ramires at bedside N.O received for, EKG, labs, keppra, lorazepam, and NS bolus completed as ordered.
[2023-04-24 11:44] LABS: Lactic Acid Reflex 3.2 mmol/L (0.7-2.0)
[2023-04-24 11:56] LABS: Troponin I < 0.012 ng/mL (0.000-0.034)
[2023-04-24 14:30] LABS: Reflex Lactic Acid Yes or No Add Lactic
--- NOTE | 2023-04-24 14:47 | PCPTNOTE ---
The patient treatment was not able to be completed on 04/24/2023 due to patient having rapid called this morning. Will plan to continue treatment per plan of care.
[2023-04-24 15:15] LABS: Lactic Acid 1.1 mmol/L (0.7-2.0)
--- NOTE | 2023-04-24 17:29 | P.PNCROSS_ITS ---
Event Note Event Note Event Note: Concern: * ASSEMBLER METAL FURNITURE was called at about 10:30 AM on 04/24/2023 for witnessed seizures. * She was said to be stiff, foaming at the mouth and poorly responsive compared to baseline. * She suffers from seizures at baseline and is on a Keppra regimen Assessment: Seizures Plan * Supplemental oxygen * Keppra 1g; Serum Keppra levels * Ativan 1mg * Seizure and safety precautions * CXR * DuoNebs Rx * Neuro checks * Sitter to continue * Lactic Acid * Troponin * ECG: Sinus tachycardia; no ST-T wave change * She will be monitored on the same floor pending improvement or worsening of clinical status.
--- NOTE | 2023-04-24 17:29 | PM.EVENT ---
Event Note Event Note Event Note: Concern: PROGRAMMING COORDINATOR was called at about 10:30 AM on 04/24/2023 for witnessed seizures. She was said to be stiff, foaming at the mouth and poorly responsive compared to baseline. She suffers from seizures at baseline and is on a Keppra regimen Assessment: Seizures Plan Supplemental oxygen Keppra 1g; Serum Keppra levels Ativan 1mg Seizure and safety precautions CXR DuoNebs Rx Neuro checks Sitter to continue Lactic Acid Troponin ECG: Sinus tachycardia; no ST-T wave change She will be monitored on the same floor pending improvement or worsening of clinical status.
--- NOTE | 2023-04-24 17:34 | PM.IMPN ---
Progress Note: A&P Assessment and Plan (1) TITA (acute kidney injury): Code(s): N17.9 - Acute kidney failure, unspecified Status: Acute (2) Fall: Qualifiers: Encounter type: initial encounter Qualified Code(s): W19.XXXA - Unspecified fall, initial encounter Code(s): W19.XXXA - Unspecified fall, initial encounter Status: Acute (3) Acute urinary tract infection: Code(s): N39.0 - Urinary tract infection, site not specified Status: Acute (4) Facial laceration: Qualifiers: Encounter type: initial encounter Qualified Code(s): S01.81XA - Laceration without foreign body of other part of head, initial encounter Code(s): S01.81XA - Laceration without foreign body of other part of head, initial encounter Status: Acute (5) Acute metabolic encephalopathy: Code(s): G93.41 - Metabolic encephalopathy Status: Acute (6) Seizure disorder: Code(s): G40.909 - Epilepsy, unspecified, not intractable, without status epilepticus Status: Chronic Assessment and Plan: Concern: WRAPPER LAYER AND EXAMINER SOFT WORK was called at about 10:30 AM on 04/24/2023 for witnessed seizures. She was said to be stiff, foaming at the mouth and poorly responsive compared to baseline. She suffers from seizures at baseline and is on a Keppra regimen Assessment: Seizures Plan Supplemental oxygen Keppra 1g; Serum Keppra levels Ativan 1mg Seizure precautions CXR:Unremarkable DuoNebs Rx Neuro checks Sitter to continue Lactic Acid, raised but improved Troponin: unremarkable ECG: Sinus tachycardia; no ST-T wave change She will be monitored on the same floor pending improvement or worsening of clinical status. (7) Depression with anxiety: Code(s): F41.8 - Other specified anxiety disorders Status: Acute Plan Ground level fall Acute encephalopathy with agitation combative and fighting with staff received Zyprexa in the ER. On Haldol p.r.n. facial laceration UTI on Rocephin leukocytosis 18,000 on admission this is resolved. Urine culture with E coli sensitivity ESBL. Blood culture x2 is negative so far a.m. switch antibiotic to ertapenem day 2. Plan to switch to oral Bactrim when ready for discharge. Held off today due to hyperkalemia; Will be discharged on bactrim. TITA with creatinine of 2 on admission baseline 0.9 renal function is improving DVT prophylaxis Lovenox Seizure disorder resume home medication change seizure medication to IV until more consistent oral intake; if repeat seizures will need neurology input Status post pacemaker implantation Anemia chronic disease Anxiety depression History of G-tube dependence in the past now G-tube has been removed. On oral mechanical soft diet Status post MEDICAL DOCTOR MD/MEDICAL DIRECTOR shunt Code status full code long term resident 04/23/23: Will DC tomorrow due to improved status 04/24/2023: Sustained a seizure today; will monitor for a day; see WRAPPER LAYER AND EXAMINER SOFT WORK note Time Spent With Patient Time with patient: 25 - 35 minutes Subjective Date/time seen: 04/24/23 17:34 Interval history: 58-year-old female presented after a ground level fall.? Is a residential resident.? She is typically oriented times 1-2 at baseline.? Further history could not be obtained due to her mental status. While inpatient, she has suffered seizures (04/24/23) Review of Systems Review of Systems: All systems reviewed & are unremarkable except as noted in HPI and below ROS unobtainable: Yes unobtainable due to mental status Exam Narrative: GENERAL: More awake conversant and in no acute distress. HEAD: Normocephalic, 2cm laceration to the left temporal region, no active bleeding. EYES: PERRLA and EOMI. ENT: Nares clear.? Mucous membranes moist. NECK: Supple. CHEST: Clear to auscultation.? No respiratory distress. HEART: Regular rate and rhythm.? Normal peripheral pulses. ABDOMEN: Soft, nontender, nondistended. EXTREMITIES: Normal range of motion.? No edema
[2023-04-24 18:41] LABS: Glucose Point of Care 102 mg/dl (65-105)
[2023-04-24] MEDS: SODIUM CHLORIDE 0.9% IV 1,000 ML 50 ML IV CONT (18:57)
[2023-04-25 03:32] VITALS: BP 175/64; PULSE 105; RESP 18; TEMP 36.5; O2SAT 100
[2023-04-25 05:50] LABS: Basophils Percent Auto 0.3 % (0.2-1.2); Eosinophils Percent Auto 0.2 % (0-4.4); Hematocrit 27.1 % (37.0-47.0); Hemoglobin 8.5 g/dL (12.0-15.0); Immature Granulocyte Absolute 0.04 K/mm3 (0.00-0.031); Immature Granulocyte Percent A 0.4 % (0-0.5); Lymphocytes Absolute Auto 1.08 K/mm3 (0.9-3.2); Lymphocytes Percent Auto 12.1 % (18.3-44.2); Mean Corpuscular HGB Conc 31.4 g/dl (32-36); Mean Corpuscular Hemoglobin 26.8 pg (26-34); Mean Corpuscular Volume 85.5 fl (80-100); Mean Platelet Volume 10.7 fl (7.4-10.4); Monocytes Absolute Auto 0.7 K/mm3 (0.1-0.6); Monocytes Percent Auto 7.5 % (2.6-8.5); Neutrophils Absolute Auto 7.1 K/mm3 (1.3-6.7); Neutrophils Percent Auto 79.5 % (45.5-73.1); Platelet Count Result 228 k/mm3 (150-375); Red Blood Count 3.17 M/mm3 (4.2-5.4); Red Cell Distribution Width 13.1 % (11.5-14.5); White Blood Count 8.9 K/mm3 (4.5-10.0)
[2023-04-25 05:58] LABS: Alanine Aminotransferase 12 U/L (6-35); Albumin Level 3.7 g/dL (3.5-5.1); Alkaline Phosphatase 64 U/L (38-126); Anion Gap 7 mmol/L (8-16); Aspartate Amino Transferase 21 U/L (14-36); Bilirubin,Total 0.4 mg/dL (0.2-1.3); Blood Urea Nitrogen 9 mg/dL (7-17); Calcium 8.5 mg/dL (8.4-10.2); Carbon Dioxide 23 mmol/L (22-30); Chloride 109 mmol/L (98-107); Estimated CRCL calculation 28 ml/min; Estimated Glomerular Filt Rate 43; Glucose 91 mg/dL (65-110); Potassium 4.8 mmol/L (3.4-5.0); Sodium 139 mmol/L (137-145)
[2023-04-25] MEDS: ENOXAPARIN 40 MG/0.4 ML SYRINGE SUB-Q (08:25)
[2023-04-25] MEDS: SULFAMETHOXAZOLE/TRIMETHOPRIM 800/160 MG DS TABLET 1 TAB PO ×2 (08:26→20:07)
[2023-04-25] MEDS: THIAMINE HCL 100 MG TABLET PO (08:26)
[2023-04-25] MEDS: levETIRAcetam 500 MG TABLET 1000 MG PO ×2 (08:26→20:08)
[2023-04-25] MEDS: MULTIVITAMINS THERAPEUTIC TAB (*BKC) 1 TABLET PO (08:26)
[2023-04-25] MEDS: PANTOPRAZOLE 40 MG TABLET PO (08:26)
--- NOTE | 2023-04-25 08:45 | PCOTNOTE ---
Patient had a rapid response called yesterday. GIORDANO/L asked RN to contact the MD for updated therapy orders. Per RN, Patient is not appropriate for therapy services. Patient very lethargic, with difficulty with alertness. OT/L updated and will follow up.
--- NOTE | 2023-04-25 09:20 | PCPTNOTE ---
The patient treatment was not able to be completed on 04/25/2023 due to patient not appropriate for therapy. Per GIORDANO: RN stated patient very lethargic and unable to wake up. Will plan to continue treatment per plan of care.
--- NOTE | 2023-04-25 12:38 | PCNFU ---
Nutrition Follow-Up Complete: Potential for inadequate oral intake related to loss of appetite, as evidenced by previous feeding tube, BMI 19. Adequate PO intake at least 75% meals and supplements - Not meeting goal. Continue with same goal Maintain weight - obtain updated weight Goal: Pt current nutrition is regular diet. Ensure Compact TID with meals for additional 220 kcal and 9 g protein each. Nutrition recommendation: Continue with current nutrition care plan. Agree with orders Last recorded weight is 47 kg. Bowel Motility: +1 BM 04/24/23 Labs Reviewed: Hgb 8.5, Hct 27.1, Cre 1.5 Meds Noted:Keppra, Haldol, protonix Skin: WNL Additional Notes: Sleepy today and not eating. Refused lunch and dinner yesterday, breakfast today so far. residential resident. Pt had PEG tube for feeding in the past but it was removed. Continue to try PO intake, may need to consider tube feeding again if intakes do not improve. Monitoring intakes, weights, labs, stool patterns, supplement tolerance, plan of care Follow up in 5 days
[2023-04-25] MEDS: ACETAMINOPHEN ELIXIR 325 MG/10.15 ML UDC 650 MG PO (13:16)
[2023-04-25] MEDS: LORazepam INJ (*CRX) 2 MG/ML VIAL 1 MG IV PUSH (13:16)
[2023-04-25 13:46] VITALS: BP 145/57; PULSE 95; RESP 20; O2SAT 100
--- NOTE | 2023-04-25 14:26 | PM.IMPN ---
Progress Note: A&P Assessment and Plan (1) TITA (acute kidney injury): Code(s): N17.9 - Acute kidney failure, unspecified Status: Acute (2) Fall: Qualifiers: Encounter type: initial encounter Qualified Code(s): W19.XXXA - Unspecified fall, initial encounter Code(s): W19.XXXA - Unspecified fall, initial encounter Status: Acute (3) Acute urinary tract infection: Code(s): N39.0 - Urinary tract infection, site not specified Status: Acute (4) Facial laceration: Qualifiers: Encounter type: initial encounter Qualified Code(s): S01.81XA - Laceration without foreign body of other part of head, initial encounter Code(s): S01.81XA - Laceration without foreign body of other part of head, initial encounter Status: Acute (5) Acute metabolic encephalopathy: Code(s): G93.41 - Metabolic encephalopathy Status: Acute (6) Seizure disorder: Code(s): G40.909 - Epilepsy, unspecified, not intractable, without status epilepticus Status: Chronic Assessment and Plan: Concern: Patient has seizure episode yesterday at 10:30 a.m., 04/24/2023. CT head unremarkable. Plan Continue IV Keppra 1 g b.i.d., EEG ordered. Neurology consulted. (7) Depression with anxiety: Code(s): F41.8 - Other specified anxiety disorders Status: Acute Plan Ground level fall Acute encephalopathy with agitation combative and fighting with staff received Zyprexa in the ER. On Haldol p.r.n. facial laceration UTI on Rocephin leukocytosis 18,000 on admission this is resolved. Urine culture with E coli sensitivity ESBL. Blood culture x2 is negative so far a.m. switch antibiotic to ertapenem day 3. TITA with creatinine of 2 on admission baseline 0.9 renal function is improving Resolved, creatinine 1.1. DVT prophylaxis Lovenox Seizure disorder resume home medication change seizure medication to IV until more consistent oral intake; if repeat seizures will need neurology input Status post pacemaker implantation Anemia chronic disease Anxiety depression History of G-tube dependence in the past now G-tube has been removed. 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 Is a [facility] resident.? She is typically oriented times 1-2 at baseline.? While inpatient, she has suffered seizures (04/24/23), which the nurses reports that her mental status has changed for the worse since then. CT scan obtained after the episode was unremarkable. Patient was put on Keppra. I requested EEG and neurology consults today. Review of Systems Review of Systems: All systems reviewed & are unremarkable except as noted in HPI and below ROS unobtainable: Yes unobtainable due to mental status Exam Narrative: GENERAL: More awake conversant and in no acute distress. HEAD: Normocephalic, 2cm laceration to the left temporal region, no active bleeding. EYES: PERRLA and EOMI. ENT: Nares clear.? Mucous membranes moist. NECK: Supple. CHEST: Clear to auscultation.? No respiratory distress. HEART: Regular rate and rhythm.? Normal peripheral pulses. ABDOMEN: Soft, nontender, nondistended. EXTREMITIES: Normal range of motion.? No edema. SKIN: Warm, dry, no rash. NEURO: No focal deficits.? More awake and conversant still confused Objective Data Vital Signs Vital Signs: Vital Signs - 24 hr 04/24/23 20:47 04/24/23 20:58 04/25/23 03:32 Temperature 99.3 F 97.7 F Pulse Rate 105 H 105 H Respiratory Rate 17 18 Blood Pressure 146/62 H 175/64 H Pulse Oximetry 100 100 100 Oxygen Delivery Nasal Cannula Oxygen Flow Rate 1 04/24/23 22:33 04/25/23 08:45 04/25/23 13:4
[2023-04-25] MEDS: SODIUM CHLORIDE 0.9% IV 1,000 ML 50 ML IV CONT (14:50)
--- NOTE | 2023-04-25 16:30 | PCPTNOTE ---
Attempted to contact hospitalist regarding discontinuing therapy with pt until pt becomes appropriate for therapy. Hospitalist did not answer phone call/return therapist phone call.
[2023-04-25 20:00] VITALS: O2SAT 100
[2023-04-25 20:26] VITALS: BP 150/65; PULSE 109; RESP 16; TEMP 36.6; O2SAT 100
[2023-04-26 05:03] VITALS: BP 128/48; PULSE 91; RESP 14; TEMP 36.5; O2SAT 100
[2023-04-26 05:17] LABS: Basophils Percent Auto 0.3 % (0.2-1.2); Eosinophils Absolute Auto 0.1 K/mm3 (0-0.3); Eosinophils Percent Auto 0.4 % (0-4.4); Hematocrit 30.8 % (37.0-47.0); Hemoglobin 9.8 g/dL (12.0-15.0); Immature Granulocyte Absolute 0.06 K/mm3 (0.00-0.031); Immature Granulocyte Percent A 0.5 % (0-0.5); Immature Platelet Fraction Pct 10.3 % (0.9-11.2); Lymphocytes Absolute Auto 0.98 K/mm3 (0.9-3.2); Lymphocytes Percent Auto 7.8 % (18.3-44.2); Mean Corpuscular HGB Conc 31.8 g/dl (32-36); Mean Corpuscular Hemoglobin 27.5 pg (26-34); Mean Corpuscular Volume 86.3 fl (80-100); Mean Platelet Volume 11.7 fl (7.4-10.4); Monocytes Absolute Auto 0.7 K/mm3 (0.1-0.6); Monocytes Percent Auto 5.8 % (2.6-8.5); Neutrophils Absolute Auto 10.6 K/mm3 (1.3-6.7); Neutrophils Percent Auto 85.2 % (45.5-73.1); Platelet Count Result 185 k/mm3 (150-375); Red Blood Count 3.57 M/mm3 (4.2-5.4); Red Cell Distribution Width 12.9 % (11.5-14.5); White Blood Count 12.5 K/mm3 (4.5-10.0)
[2023-04-26 05:30] LABS: Alanine Aminotransferase 12 U/L (6-35); Albumin Level 4.1 g/dL (3.5-5.1); Alkaline Phosphatase 70 U/L (38-126); Anion Gap 11 mmol/L (8-16); Aspartate Amino Transferase 23 U/L (14-36); Bilirubin,Total 0.5 mg/dL (0.2-1.3); Blood Urea Nitrogen 13 mg/dL (7-17); Calcium 9.2 mg/dL (8.4-10.2); Carbon Dioxide 21 mmol/L (22-30); Chloride 109 mmol/L (98-107); Estimated CRCL calculation 32 ml/min; Estimated Glomerular Filt Rate 51; Glucose 66 mg/dL (65-110); Sodium 141 mmol/L (137-145)
[2023-04-26] MEDS: SULFAMETHOXAZOLE/TRIMETHOPRIM 800/160 MG DS TABLET 1 TAB PO ×2 (08:37→20:56)
[2023-04-26] MEDS: THIAMINE HCL 100 MG TABLET PO (08:37)
[2023-04-26] MEDS: ENOXAPARIN 30 MG/0.3 ML SYRINGE SUB-Q (08:37)
[2023-04-26] MEDS: MULTIVITAMINS THERAPEUTIC TAB (*BKC) 1 TABLET PO (08:37)
[2023-04-26] MEDS: levETIRAcetam 500 MG TABLET 1000 MG PO ×2 (08:37→20:56)
[2023-04-26] MEDS: PANTOPRAZOLE 40 MG TABLET PO (08:37)
[2023-04-26 08:45] VITALS: O2SAT 96
--- NOTE | 2023-04-26 10:30 | WPDNEURCNPN ---
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 Course has been complicated by breakthrough seizure, likely provoked by underlying infection. - Given provoked nature of seizure, would continue Keppra at same dose of 1000mg BID - Routine EEG is not needed at this time Consult date: 04/26/23 Reason for consult: Breakthrough seizure HPI: Deb Matos is a 58 year old female with a history of epilepsy, spastic quadriparesis, anemia, gallstones, depression/anxiety who presented after fall at the assisted in which she resides. She is AOx 1-2 at her baseline. Unclear what precipitated the fall. She was taken to [facility] for evaluation where she was combative and agitated. CT head was negative for acute process. Her UA was suggestive of UTI. She was started on Rocephin and subsequently admitted. She takes Keppra 1000mg BID. Several days into admission, patient had a seizure. She was given Ativan 1mg. Keppra level has been obtained and is pending. Review of Systems Review of Systems: ROS unobtainable: Yes unobtainable due to medical condition and unobtainable due to mental status PMFSH Past Medical History Medical History Anemia of chronic disease Cholelithiasis Chronic GERD Depression with anxiety Gastrostomy tube dependent Seizure disorder Uterine fibroid Surgical History Surgical History (Updated 08/08/22 @ 22:20 by Sauld Martinez NP) H/O abdominal surgery History of appendectomy S/P ORIF (open reduction internal fixation) fracture Left elbow S/P PROFESSOR OF CHEMICAL ENGINEERING shunt Family History Family History Unknown No problems noted. Other Unknown family medical history Social History Social History (Updated 08/08/22 @ 22:21 by Salud Martinez NP) Social History: The patient is single and disabled. Clyde Matos a sibling is the power engine room operator listed for the patient and another tooth cutter contact wheel is Nayeli montgomery who is listed as a sibling. Code status full code Smoking status: Unknown if ever smoked Alcohol intake: never Substance use: never Spiritual care concerns: No Meds Home Medications and Allergies Home Medications Medication Instructions Recorded Confirmed Type acetaminophen 325 mg tablet 650 mg feeding tube Q6H PRN Pain 08/08/22 04/19/23 History (Scale Score 1-3) ferrous sulfate 325 mg (65 mg 325 mg feeding tube DAILY 08/08/22 04/19/23 History iron) tablet ibuprofen 200 mg tablet 200 mg feeding tube Q6H PRN Pain 08/08/22 04/19/23 History (Scale Score 1-3) levetiracetam 1,000 mg tablet 1,000 mg PO BID 08/08/22 04/19/23 History multivitamin a-yysaifwj-kavxqey 1 tablet PO DAILY 08/08/22 04/19/23 History fumarate 18 mg-vitamin K 25 mcg tablet omeprazole 20 mg capsule,delayed 20 mg feeding tube DAILY 08/08/22 04/19/23 History release thiamine HCl (vitamin B1) 100 mg 100 mg feeding tube DAILY 08/08/22 04/19/23 History tablet trazodone 50 mg tablet 25 mg feeding tube Q6H PRN Anxiety 08/08/22 04/19/23 History K-Phos Original See Rx Instructions .Route .COMPLEX 04/19/23 04/19/23 History haloperidol lactate 5 mg/mL 5 mg IM DAILY PRN Agitation 04/19/23 04/19/23 History injection solution lithium carbonate 150 mg capsule 150 mg PO BID 04/19/23 04/19/23 History Allergies Allergy/AdvReac Type
[2023-04-26 12:16] LABS: Levetiracetam Keppra 148.2 mcg/mL (6.0-46.0)
--- NOTE | 2023-04-26 13:26 | PM.IMPN ---
Progress Note: A&P Assessment and Plan (1) TITA (acute kidney injury): Code(s): N17.9 - Acute kidney failure, unspecified Status: Acute (2) Fall: Qualifiers: Encounter type: initial encounter Qualified Code(s): W19.XXXA - Unspecified fall, initial encounter Code(s): W19.XXXA - Unspecified fall, initial encounter Status: Acute (3) Acute urinary tract infection: Code(s): N39.0 - Urinary tract infection, site not specified Status: Acute (4) Facial laceration: Qualifiers: Encounter type: initial encounter Qualified Code(s): S01.81XA - Laceration without foreign body of other part of head, initial encounter Code(s): S01.81XA - Laceration without foreign body of other part of head, initial encounter Status: Acute (5) Acute metabolic encephalopathy: Code(s): G93.41 - Metabolic encephalopathy Status: Acute (6) Seizure disorder: Code(s): G40.909 - Epilepsy, unspecified, not intractable, without status epilepticus Status: Chronic (7) Depression with anxiety: Code(s): F41.8 - Other specified anxiety disorders Status: Acute Plan Ground level fall Acute encephalopathy with agitation combative and fighting with staff received Zyprexa in the ER. On Haldol p.r.n. facial laceration UTI on Rocephin leukocytosis 18,000 on admission this is resolved. Urine culture with E coli sensitivity ESBL. Blood culture x2 is negative so far a.m. switch antibiotic to ertapenem which has been switched to Bactrim now TITA with creatinine of 2 on admission baseline 0.9 renal function is improving Resolved, creatinine 1.1. DVT prophylaxis Lovenox Seizure disorder resume home medication change seizure medication to IV until more consistent oral intake; has breakthrough seizure. Could be provoked due to ertapenem use recently. Antibiotic has been already switched to Bactrim. Continue to monitor Status post pacemaker implantation Anemia chronic disease Anxiety depression History of G-tube dependence in the past now G-tube has been removed. On oral mechanical soft diet Status post BEND UP shunt Code status full code prison resident Subjective Date/time seen: 04/26/23 13:26 Interval history: No overnight event. No further seizures. Suffered breakthrough seizure on 04/24/2023. More awake and alert today. On Keppra Review of Systems Review of Systems: All systems reviewed & are unremarkable except as noted in HPI and below Exam Narrative: GENERAL: More awake conversant and in no acute distress. HEAD: Normocephalic, 2cm laceration to the left temporal region, no active bleeding. EYES: PERRLA and EOMI. ENT: Nares clear.? Mucous membranes moist. NECK: Supple. CHEST: Clear to auscultation.? No respiratory distress. HEART: Regular rate and rhythm.? Normal peripheral pulses. ABDOMEN: Soft, nontender, nondistended. EXTREMITIES: Normal range of motion.? No edema. SKIN: Warm, dry, no rash. NEURO: No focal deficits.? More awake and conversant still confused Objective Data Vital Signs Vital Signs: Vital Signs - 24 hr 04/25/23 13:46 04/25/23 20:26 04/25/23 20:00 Temperature 98 F Pulse Rate 95 109 H Respiratory Rate 20 16 Blood Pressure 145/57 H 150/65 H Pulse Oximetry 100 100 100 Oxygen Delivery Nasal Cannula Oxygen Flow Rate 1 04/26/23 05:03 04/26/23 08:45 Temperature 97.7 F Pulse Rate 91 Respiratory Rate 14 Blood Pressure 128/48 L Pulse Oximetry 100 96 Oxygen Delivery Nasal Cannula Oxygen Flow Rate 1 Intake/Output Intake/Output: Intake & Output 04/23/23 04/24/23 04/25/23 04/26/23 23:59 23:59 23:59 23:59 Intake Total 990 1600 1300 320 Output Total 150 250 100 Balance 840 1350 1300 220 Meds/Results Medications: Active Medications Generic Name Dose Route Start Last Admin Trade Name Freq PRN Reason Stop Dose Admin Acetaminophen 650 mg 04/19/23 15:34 04/25/23 13:16 A
[2023-04-26 13:58] VITALS: BP 135/44; PULSE 89; RESP 16; TEMP 36.8; O2SAT 100
[2023-04-26] MEDS: LITHIUM CARBONATE 150 MG CAPSULE PO (16:24)
[2023-04-26 19:39] VITALS: BP 115/45; PULSE 79; RESP 16; TEMP 36.6; O2SAT 100
[2023-04-27] MEDS: traZODone HCL 25 MG TABLET PO ×2 (00:41→20:15)
[2023-04-27 05:18] VITALS: BP 152/68; PULSE 107; RESP 16; TEMP 36.6; O2SAT 99
[2023-04-27 05:31] LABS: Basophils Absolute Auto 0.1 K/mm3 (0.0-0.1); Basophils Percent Auto 0.4 % (0.2-1.2); Eosinophils Absolute Auto 0.1 K/mm3 (0-0.3); Eosinophils Percent Auto 0.6 % (0-4.4); Hematocrit 34.8 % (37.0-47.0); Hemoglobin 10.9 g/dL (12.0-15.0); Immature Granulocyte Absolute 0.06 K/mm3 (0.00-0.031); Immature Granulocyte Percent A 0.4 % (0-0.5); Lymphocytes Absolute Auto 1.34 K/mm3 (0.9-3.2); Lymphocytes Percent Auto 9.6 % (18.3-44.2); Mean Corpuscular HGB Conc 31.3 g/dl (32-36); Mean Corpuscular Hemoglobin 27.2 pg (26-34); Mean Corpuscular Volume 86.8 fl (80-100); Monocytes Absolute Auto 0.9 K/mm3 (0.1-0.6); Monocytes Percent Auto 6.6 % (2.6-8.5); Neutrophils Absolute Auto 11.4 K/mm3 (1.3-6.7); Neutrophils Percent Auto 82.4 % (45.5-73.1); Platelet Count Result 293 k/mm3 (150-375); Red Blood Count 4.01 M/mm3 (4.2-5.4); White Blood Count 13.9 K/mm3 (4.5-10.0)
[2023-04-27 05:39] LABS: Alanine Aminotransferase 18 U/L (6-35); Albumin Level 4.8 g/dL (3.5-5.1); Alkaline Phosphatase 78 U/L (38-126); Anion Gap 13 mmol/L (8-16); Aspartate Amino Transferase 38 U/L (14-36); Bilirubin,Total 0.5 mg/dL (0.2-1.3); Blood Urea Nitrogen 16 mg/dL (7-17); Calcium 10.6 mg/dL (8.4-10.2); Carbon Dioxide 22 mmol/L (22-30); Chloride 108 mmol/L (98-107); Estimated CRCL calculation 30 ml/min; Estimated Glomerular Filt Rate 47; Glucose 100 mg/dL (65-110); Potassium 5.6 mmol/L (3.4-5.0); Sodium 143 mmol/L (137-145)
[2023-04-27] MEDS: THIAMINE HCL 100 MG TABLET PO (08:06)
[2023-04-27] MEDS: ENOXAPARIN 30 MG/0.3 ML SYRINGE SUB-Q (08:06)
[2023-04-27] MEDS: PANTOPRAZOLE 40 MG TABLET PO (08:06)
[2023-04-27] MEDS: FERROUS SULFATE 325 MG TABLET DR PO (08:06)
[2023-04-27] MEDS: LITHIUM CARBONATE 150 MG CAPSULE PO ×2 (08:06→16:30)
[2023-04-27] MEDS: SULFAMETHOXAZOLE/TRIMETHOPRIM 800/160 MG DS TABLET 1 TAB PO ×2 (08:07→20:12)
[2023-04-27] MEDS: levETIRAcetam 500 MG TABLET 1000 MG PO ×2 (08:07→20:12)
[2023-04-27] MEDS: MULTIVITAMINS THERAPEUTIC TAB (*BKC) 1 TABLET PO (08:07)
--- NOTE | 2023-04-27 10:20 | PCOTNOTE ---
Attempted OT re-evaluation. Patient refused and is unarousable. Will follow.
--- NOTE | 2023-04-27 11:15 | PM.IMPN ---
Progress Note: A&P Assessment and Plan (1) TITA (acute kidney injury): Code(s): N17.9 - Acute kidney failure, unspecified Status: Acute Assessment and Plan: Gradually improving, continue monitor. (2) Fall: Qualifiers: Encounter type: initial encounter Qualified Code(s): W19.XXXA - Unspecified fall, initial encounter Code(s): W19.XXXA - Unspecified fall, initial encounter Status: Acute Assessment and Plan: Stable, continue current treatment do (3) Acute urinary tract infection: Code(s): N39.0 - Urinary tract infection, site not specified Status: Acute Assessment and Plan: Stable, continue current treatment (4) Facial laceration: Qualifiers: Encounter type: initial encounter Qualified Code(s): S01.81XA - Laceration without foreign body of other part of head, initial encounter Code(s): S01.81XA - Laceration without foreign body of other part of head, initial encounter Status: Acute Assessment and Plan: Stable, continue current treatment (5) Acute metabolic encephalopathy: Code(s): G93.41 - Metabolic encephalopathy Status: Acute Assessment and Plan: Much better and improving, will continue current monitor closely (6) Seizure disorder: Code(s): G40.909 - Epilepsy, unspecified, not intractable, without status epilepticus Status: Chronic Assessment and Plan: No acute seizure episode noted. Will continue good (7) Depression with anxiety: Code(s): F41.8 - Other specified anxiety disorders Status: Acute Assessment and Plan: Counseling given couple continue current treatment Plan Ground level fall Acute encephalopathy with agitation combative and fighting with staff received Zyprexa in the ER. On Haldol p.r.n. facial laceration UTI on Rocephin leukocytosis 18,000 on admission this is resolved. Urine culture with E coli sensitivity ESBL. Blood culture x2 is negative so far a.m. switch antibiotic to ertapenem which has been switched to Bactrim now TITA with creatinine of 2 on admission baseline 0.9 renal function is improving Resolved, creatinine 1.1. DVT prophylaxis Lovenox Seizure disorder resume home medication change seizure medication to IV until more consistent oral intake; has breakthrough seizure. Could be provoked due to ertapenem use recently. Antibiotic has been already switched to Bactrim. Continue to monitor Status post pacemaker implantation Anemia chronic disease Anxiety depression History of G-tube dependence in the past now G-tube has been removed. 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 No new seizure activity. No shortness of breath or chest pain No abdominal pain, nausea, vomiting. Mood stable. Review of Systems Review of Systems: All systems reviewed & are unremarkable except as noted in HPI and below ROS unobtainable: Yes unobtainable due to mental status Exam Narrative: GENERAL: More awake conversant and in no acute distress. HEAD: Normocephalic, 2cm laceration to the left temporal region, no active bleeding. EYES: PERRLA and EOMI. ENT: Nares clear.? Mucous membranes moist. NECK: Supple. CHEST: Clear to auscultation.? No respiratory distress. HEART: Regular rate and rhythm.? Normal peripheral pulses. ABDOMEN: Soft, nontender, nondistended. EXTREMITIES: Normal range of motion.? No edema. SKIN: Warm, dry, no rash. NEURO: No focal deficits.? More awake and conversant still confused Objective Data Vital Signs Vital Signs: Vital Signs - 24 hr 04/26/23 13:58 04/26/23 19:39 04/27/23 05:18 Temperature 36.8 C 36.6 C 36.6 C Pulse Rate 89 79 107 H Respiratory Rate 16 16 16 Blood Pressure 135/44 L 115/45 L 152/68 H Pulse Oximetry 100 100 99 Oxygen Delivery 04/27/23 08:00 [place]
--- NOTE | 2023-04-27 12:25 | PCPTNOTE ---
attempted PT reevaluation--pt refused therapy; discussed with RN
[2023-04-27] MEDS: SODIUM POLYSTYRENE SULFONONATE 15 GM/60 ML BTL PO (12:49)
[2023-04-27 14:00] VITALS: BP 90/70; PULSE 83; RESP 12; TEMP 36.4; O2SAT 100
[2023-04-27 15:11] LABS: Anion Gap 12 mmol/L (8-16); Blood Urea Nitrogen 17 mg/dL (7-17); Calcium 10.1 mg/dL (8.4-10.2); Carbon Dioxide 22 mmol/L (22-30); Chloride 108 mmol/L (98-107); Estimated CRCL calculation 34 ml/min; Estimated Glomerular Filt Rate 56; Glucose 115 mg/dL (65-110); Potassium 4.5 mmol/L (3.4-5.0); Sodium 142 mmol/L (137-145)
[2023-04-27 19:42] VITALS: BP 139/42; PULSE 77; RESP 18; TEMP 36.6; O2SAT 100
[2023-04-27 20:35] LABS: Magnesium 2.1 mg/dL (1.6-2.3)
[2023-04-28 05:49] LABS: Basophils Percent Auto 0.4 % (0.2-1.2); Eosinophils Absolute Auto 0.1 K/mm3 (0-0.3); Eosinophils Percent Auto 1.7 % (0-4.4); Hematocrit 32.5 % (37.0-47.0); Hemoglobin 10.2 g/dL (12.0-15.0); Immature Granulocyte Absolute 0.05 K/mm3 (0.00-0.031); Immature Granulocyte Percent A 0.6 % (0-0.5); Lymphocytes Absolute Auto 1.25 K/mm3 (0.9-3.2); Lymphocytes Percent Auto 14.8 % (18.3-44.2); Mean Corpuscular HGB Conc 31.4 g/dl (32-36); Mean Corpuscular Hemoglobin 26.8 pg (26-34); Mean Corpuscular Volume 85.5 fl (80-100); Monocytes Absolute Auto 0.7 K/mm3 (0.1-0.6); Monocytes Percent Auto 7.8 % (2.6-8.5); Neutrophils Absolute Auto 6.3 K/mm3 (1.3-6.7); Neutrophils Percent Auto 74.7 % (45.5-73.1); Platelet Count Result 264 k/mm3 (150-375); Red Cell Distribution Width 13.2 % (11.5-14.5); White Blood Count 8.5 K/mm3 (4.5-10.0)
[2023-04-28 05:52] VITALS: BP 127/91; PULSE 87; RESP 18; TEMP 36.6; O2SAT 100
[2023-04-28 06:01] LABS: Alanine Aminotransferase 19 U/L (6-35); Albumin Level 4.3 g/dL (3.5-5.1); Alkaline Phosphatase 65 U/L (38-126); Anion Gap 12 mmol/L (8-16); Aspartate Amino Transferase 31 U/L (14-36); Bilirubin,Total 0.5 mg/dL (0.2-1.3); Blood Urea Nitrogen 21 mg/dL (7-17); Calcium 9.4 mg/dL (8.4-10.2); Carbon Dioxide 23 mmol/L (22-30); Chloride 106 mmol/L (98-107); Estimated CRCL calculation 32 ml/min; Estimated Glomerular Filt Rate 51; Glucose 128 mg/dL (65-110); Potassium 4.5 mmol/L (3.4-5.0); Sodium 141 mmol/L (137-145)
[2023-04-28 08:00] VITALS: PULSE 87; RESP 18; O2SAT 100
[2023-04-28] MEDS: FERROUS SULFATE 325 MG TABLET DR PO (09:29)
[2023-04-28] MEDS: ENOXAPARIN 30 MG/0.3 ML SYRINGE SUB-Q (09:29)
[2023-04-28] MEDS: MULTIVITAMINS THERAPEUTIC TAB (*BKC) 1 TABLET PO (09:30)
[2023-04-28] MEDS: PANTOPRAZOLE 40 MG TABLET PO (09:30)
[2023-04-28] MEDS: THIAMINE HCL 100 MG TABLET PO (09:30)
[2023-04-28] MEDS: SULFAMETHOXAZOLE/TRIMETHOPRIM 800/160 MG DS TABLET 1 TAB PO ×2 (09:30→20:20)
[2023-04-28] MEDS: levETIRAcetam 500 MG TABLET 1000 MG PO ×2 (09:30→20:20)
[2023-04-28] MEDS: LITHIUM CARBONATE 150 MG CAPSULE PO ×2 (09:30→17:14)
--- NOTE | 2023-04-28 11:33 | PCOTNOTE ---
Spoke with hospitalist, Dr. Karimi, who cleared pt. for return to therapy prior to re-evaluation.
[2023-04-28 14:37] VITALS: BP 128/43; PULSE 94; RESP 16; TEMP 36.6; O2SAT 100
--- NOTE | 2023-04-28 18:03 | PM.IMPN ---
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, unspecified Status: Acute (2) TITA (acute kidney injury): Code(s): N17.9 - Acute kidney failure, unspecified Status: Acute (3) Fall: Qualifiers: Encounter type: initial encounter Qualified Code(s): W19.XXXA - Unspecified fall, initial encounter Code(s): W19.XXXA - Unspecified fall, initial encounter Status: Acute (4) Acute urinary tract infection: Code(s): N39.0 - Urinary tract infection, site not specified Status: Acute (5) Facial laceration: Qualifiers: Encounter type: initial encounter Qualified Code(s): S01.81XA - Laceration without foreign body of other part of head, initial encounter Code(s): S01.81XA - Laceration without foreign body of other part of head, initial encounter Status: Acute (6) Acute metabolic encephalopathy: Code(s): G93.41 - Metabolic encephalopathy Status: Acute (7) Abnormal finding of kidney: Code(s): R39.9 - Unspecified symptoms and signs involving the genitourinary system Status: Acute (8) Uterine fibroid: Code(s): D25.9 - Leiomyoma of uterus, unspecified Status: Acute (9) Cholelithiasis: Code(s): K80.20 - Calculus of gallbladder without cholecystitis without obstruction Status: Acute (10) Chronic GERD: Code(s): K21.9 - Gastro-esophageal reflux disease without esophagitis Status: Acute Plan 1. TITA will ct until lithium is tapered off. pt cannot keep up po intake. Dehydrated 2. [place] use taper over 1 week. discussed with pharmacy. decrease to 150 mg/day then off 3. UTI ertapenem for esble since 04/21. bactrim until 04/30 then off 4. Epilepsy on keppra 1000 mg bid per neuro likely will need some meds decreased for her lethargy 5. PM implantation 6. Anxiety/depression can use meds other than lithium or meds that will dehydrate her Anemia chronic disease Anxiety depression History of G-tube dependence in the past now G-tube has been removed.? 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 awake, mildly lethargic Review of Systems Review of Systems: not able to obtain Exam Narrative: GENERAL:? More awake conversant and in no acute distress. HEAD: Normocephalic, 2cm laceration to the left temporal region, no active bleeding. EYES: PERRLA and EOMI. ENT: Nares clear.? Mucous membranes moist. NECK: Supple. CHEST: Clear to auscultation.? No respiratory distress. HEART: Regular rate and rhythm.? Normal peripheral pulses. ABDOMEN: Soft, nontender, nondistended. EXTREMITIES: Normal range of motion.? No edema. SKIN: Warm, dry, no rash. NEURO: No focal deficits.? More awake and conversant still confused Objective Data Vital Signs Vital Signs: Vital Signs - 24 hr 04/27/23 19:42 04/27/23 20:00 04/28/23 05:52 Temperature 97.8 F 97.9 F Pulse Rate 77 87 Respiratory Rate 18 18 Blood Pressure 139/42 L 127/91 H Pulse Oximetry 100 100 Oxygen Delivery Room Air 04/28/23 08:00 04/28/23 14:37 04/28/23 15:37 Temperature 97.8 F Pulse Rate 87 94 Respiratory Rate 18 16 Blood Pressure 128/43 L Pulse Oximetry 100 100 Oxygen Delivery Room Air Room Air Intake/Output Intake/Output: Intake & Output 04/25/23 04/26/23 04/27/23 04/28/23 23:59 23:59 23:59 23:59 Intake Total 1300 744 988 3187 Output Total 100 200 100 Balance 1300 976 705 2528 Meds/Results Medications: Active Medications Generic Name Dose Route Start Last Admin Trade Name Freq PRN Reason Stop Dose Admin Acetaminophen 650 mg 04/19/23 15:34 04/25/23 13:16 Acetaminophe
[2023-04-28 20:39] VITALS: BP 128/44; PULSE 89; RESP 17; TEMP 36.9; O2SAT 100
[2023-04-29] VITALS (7 sets, daily range): BP systolic 120–139; BP diastolic 42–62; PULSE 73–117; RESP 16–18; TEMP 36.3–36.7; O2SAT 100
[2023-04-29 06:26] LABS: Basophils Percent Auto 0.5 % (0.2-1.2); Eosinophils Absolute Auto 0.2 K/mm3 (0-0.3); Eosinophils Percent Auto 2.5 % (0-4.4); Hematocrit 32.4 % (37.0-47.0); Immature Granulocyte Absolute 0.04 K/mm3 (0.00-0.031); Immature Granulocyte Percent A 0.5 % (0-0.5); Lymphocytes Absolute Auto 1.66 K/mm3 (0.9-3.2); Lymphocytes Percent Auto 20.1 % (18.3-44.2); Mean Corpuscular HGB Conc 30.9 g/dl (32-36); Mean Corpuscular Hemoglobin 26.8 pg (26-34); Mean Corpuscular Volume 86.9 fl (80-100); Mean Platelet Volume 10.7 fl (7.4-10.4); Monocytes Absolute Auto 0.7 K/mm3 (0.1-0.6); Monocytes Percent Auto 8.2 % (2.6-8.5); Neutrophils Absolute Auto 5.6 K/mm3 (1.3-6.7); Neutrophils Percent Auto 68.2 % (45.5-73.1); Platelet Count Result 258 k/mm3 (150-375); Red Blood Count 3.73 M/mm3 (4.2-5.4); Red Cell Distribution Width 13.3 % (11.5-14.5); White Blood Count 8.3 K/mm3 (4.5-10.0)
[2023-04-29 06:37] LABS: Alanine Aminotransferase 20 U/L (6-35); Albumin Level 4.3 g/dL (3.5-5.1); Alkaline Phosphatase 62 U/L (38-126); Anion Gap 13 mmol/L (8-16); Aspartate Amino Transferase 28 U/L (14-36); Bilirubin,Total 0.3 mg/dL (0.2-1.3); Blood Urea Nitrogen 28 mg/dL (7-17); Carbon Dioxide 25 mmol/L (22-30); Chloride 105 mmol/L (98-107); Estimated CRCL calculation 23 ml/min; Estimated Glomerular Filt Rate 35; Glucose 99 mg/dL (65-110); Potassium 5.7 mmol/L (3.4-5.0); Sodium 143 mmol/L (137-145)
--- NOTE | 2023-04-29 08:01 | PC.NURSE ---
Dr Eng notified of potassium level 5.7 this am
--- NOTE | 2023-04-29 08:28 | ECG_ITS ---
Measurements Intervals [place] Rate: 79 P: 52 WI: 178 QRS: 3 QRSD: 86 T: 30 QT: 344 QTc: 395 Interpretive Statements SINUS RHYTHM VOLTAGE CRITERIA FOR LVH BASELINE ARTIFACT- I, II, III, AVR, AVL, AVF, V1-V6 BORDERLINE ECG COMPARED TO ECG 04/24/2023 11:12:52 SINUS RHYTHM NOW PRESENT Electronically Signed On 04-29-2023 9:44:23 [employer] by Casper Palomino D.O.
[2023-04-29] MEDS: levETIRAcetam 500 MG TABLET 1000 MG PO (08:52)
[2023-04-29] MEDS: PANTOPRAZOLE 40 MG TABLET PO (08:52)
[2023-04-29] MEDS: SULFAMETHOXAZOLE/TRIMETHOPRIM 800/160 MG DS TABLET 1 TAB PO (08:52)
[2023-04-29] MEDS: FERROUS SULFATE 325 MG TABLET DR PO (08:52)
[2023-04-29] MEDS: THIAMINE HCL 100 MG TABLET PO (08:52)
[2023-04-29] MEDS: MULTIVITAMINS THERAPEUTIC TAB (*BKC) 1 TABLET PO (08:52)
[2023-04-29] MEDS: SODIUM POLYSTYRENE SULFONONATE 15 GM/60 ML BTL 30 GM PO (09:19)
[2023-04-29] MEDS: ENOXAPARIN 30 MG/0.3 ML SYRINGE SUB-Q (09:24)
[2023-04-29 10:11] LABS: Lithium 0.4 mmol/L (0.6-1.2)
[2023-04-29] MEDS: DEXTROSE 50% 25 GM/50 ML SYRINGE IV PUSH ×2 (10:30→12:25)
[2023-04-29] MEDS: CALCIUM GLUC 1,000 MG/NS 50 ML 1,000 MG/50 ML BAG 100 MG IVPB (10:30)
[2023-04-29] MEDS: INSULIN HUMAN REGULAR (*BKC) 100 UNITS/ML 10 UNITS IV PUSH (10:39)
--- NOTE | 2023-04-29 11:16 | PC.NURSE ---
On 04/29/23, the student, [Chaya Babb], provided care and completed [facility] documentation on this patient. I have reviewed the student's documentation and agree with the findings.
--- NOTE | 2023-04-29 11:38 | PM.IMPN ---
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 She was disoriented on admission and required admission. 1) acute metabolic/toxic encephalopathy - resolved. back to baseline dementia of A&Ox1 and not combative. likely 2/2 to UTI, maybe seizure 2) UTI - ertapenem and bacatrim course completed 3) hyperkalemia - low potassium diet, cocktail given, recheck BMP in 1 hour. EKG w/o hyperacute T waves 4) TITA - worsening. consult nephrology - d/c bactrim, protonix, keppra, and lithium 5) epilepsy - keppra level on admission high, no recheck since. keppra level rechecked and in the meantime dc'ed 6) anxiety and depression - lithium dc'ed. ctm. cont trazodone prn 7) GERD - holding protonix 8) AOCD - ctm FEN: diet, saline lock IV GI prophylaxis: holding for now DVT prophylaxis: lovenox Lines: pIV Code Status: Full Code Dispo: stable More than 35 minutes spent on chart review, patient interaction and assessment and plan. Subjective Date/time seen: 04/29/23 11:38 Interval history: NAOE. pt is pleasantly confused. she has no complaints otherwise Review of Systems Review of Systems: All systems reviewed & are unremarkable except as noted in HPI and below Exam Const: General: comfortable and no acute distress Other: A&Ox1, intermittently cooperative with exam. Neck: Neck: supple Resp: Effort & Inspection: normal respiratory effort Auscultation: clear to auscultation bilaterally Cardio: Rate: regular rate Rhythm: regular rhythm Heart sounds: no gallops, no murmurs and no rubs GI: Inspection: non-distended GI Palp: Yes Soft to palpation and No Tenderness to palpation present (GI) Auscultation: normal bowel sounds Extrem: General: no edema Objective Data Vital Signs Vital Signs: Vital Signs - 24 hr 04/28/23 14:37 04/28/23 15:37 04/28/23 20:00 Temperature 97.8 F Pulse Rate 94 Respiratory Rate 16 Blood Pressure 128/43 L Pulse Oximetry 100 Oxygen Delivery Room Air Room Air 04/28/23 20:39 04/29/23 05:11 04/29/23 08:00 Temperature 98.5 F 98.0 F Pulse Rate 89 80 Respiratory Rate 17 17 Blood Pressure 128/44 L 139/62 Pulse Oximetry 100 100 100 Oxygen Delivery Room Air Intake/Output Intake/Output: Intake & Output 04/26/23 04/27/23 04/28/23 04/29/23 23:59 23:59 23:59 23:59 Intake Total 001 893 5318 720 Output Total 100 200 300 400 Balance 646 125 2656 320 Meds/Results Medications: Active Medications Generic Name Dose Route Start Last Admin Trade Name Freq PRN Reason Stop Dose Admin Acetaminophen 650 mg 04/19/23 15:34 04/25/23 13:16 Acetaminophen Elixir 325 Mg/10.15 Ml Udc PO 650 mg Q6H PRN Administration Pain (Scale Score 1-3) Albuterol 2.5 mg 04/24/23 11:09 04/24/23 11:16 Albuterol Sulfate Neb 2.5 Mg/3 Ml Inh INHALATION 2.5 mg Q4HRT PRN Administration Shortness Of Breath Dextrose 12.5 gm 04/29/23 08:28 Dextrose 50% 25 Gm/50 Ml Syringe IV PUSH PRN PRN Hypoglycemia Protocol Enoxaparin Sodium 30 mg 04/26/23 09:00 04/29/23 09:24 Enoxaparin 30 Mg/0.3 Ml Syringe SUB-Q 30 mg DAILY SHAMIKA Administration Ferrous Sulfate 325 mg 04/20/23 09:00 04/29/23 08:52 Ferrous Sulfate 325 Mg Tablet
[2023-04-29 11:42] LABS: Glucose Point of Care 63 mg/dl (65-105)
[2023-04-29 11:59] LABS: Glucose Point of Care 73 mg/dl (65-105)
[2023-04-29 12:12] LABS: Anion Gap 12 mmol/L (8-16); Blood Urea Nitrogen 23 mg/dL (7-17); Calcium 10.5 mg/dL (8.4-10.2); Carbon Dioxide 24 mmol/L (22-30); Chloride 107 mmol/L (98-107); Estimated CRCL calculation 26 ml/min; Estimated Glomerular Filt Rate 40; Glucose 57 mg/dL (65-110); Sodium 143 mmol/L (137-145)
--- NOTE | 2023-04-29 12:21 | PC.NURSE ---
Dr Eng notified of glucose 58 and labs and 62 serum 1 hour after iv insulin given. Will gave amp of dextrose iv. Patient did eat 75% of lunch.
[2023-04-29 12:26] LABS: Glucose Point of Care 76 mg/dl (65-105)
[2023-04-29 13:30] LABS: Glucose Point of Care 165 mg/dl (65-105)
[2023-04-29 14:29] LABS: Glucose Point of Care 135 mg/dl (65-105)
[2023-04-29 16:01] LABS: Glucose Point of Care 127 mg/dl (65-105)
--- NOTE | 2023-04-29 16:20 | PM.CNNEP ---
Assessment and Plan Assessment and plan (1) TITA (acute kidney injury): Code(s): N17.9 - Acute kidney failure, unspecified Status: Acute (2) Fall: Qualifiers: Encounter type: initial encounter Qualified Code(s): W19.XXXA - Unspecified fall, initial encounter Code(s): W19.XXXA - Unspecified fall, initial encounter Status: Acute (3) Acute urinary tract infection: Code(s): N39.0 - Urinary tract infection, site not specified Status: Acute (4) Facial laceration: Qualifiers: Encounter type: initial encounter Qualified Code(s): S01.81XA - Laceration without foreign body of other part of head, initial encounter Code(s): S01.81XA - Laceration without foreign body of other part of head, initial encounter Status: Acute (5) Acute metabolic encephalopathy: Code(s): G93.41 - Metabolic encephalopathy Status: Acute Plan renal fucntion has been fluctuating since admission suspect related to medications in the context of UTI and possible fluctuating oral intake agree with holding any potential nephrotixic agents as able ensure adequate oral intake as tolerated; need further IVFs(?) if renal function fails to improve with conversative therapy, will pursue furtrher testing... follow repeat labs and UOP I will continue follow the patient with you while she remains hospitalized to make further recommendations as needed. Thank you for allowing me to participate in care this patient. History of Present Illness Reason for Consult Consult date: 04/29/23 Reason for consult: acute renal failure Chief Complaint Chief complaint: Acute UTI,Encephalopathy,Fall History of Present Illness Narrative: All the information that I have obtained is from review of the electronic medical record as well as discussion with the physician/ nurses involved in the patient's care as the patient is unable to provide any history given her altered mental status/confusion. The patient is a 58-year-old female with a past medical history as outlined below who apparently had a ground level fall at her facility. Is not entirely clear when this fall occurred and fortunately, the patient's baseline mentation is usually 1-2 so she is unable to revise any history I there. Given the aforementioned fall, she presented to the emergency room for further assessment Workup and evaluation emergency room demonstrated the patient to be hemodynamic the stable but she did have evidence of a head injury as noted by the laceration present. She was also to be quite combative and fighting with the staff and required IM Zyprexa to relax her. Further testing included routine blood work that showed evidence of acute kidney injury/acute renal failure as well as a urinalysis that was highly suggestive of urinary tract infection. Imaging, including CT of the head, C-spine, and x-rays did not show any acute pathological changes. After appropriate cultures were obtained, she was started on IV antibiotic therapy and subsequently admitted to the hospital for further evaluation and therapy. Since her admission, her renal function has fluctuated to extremes. From review of her records, she has a normal baseline creatinine at least earlier this year but on admission her creatinine was 2.0 mg/dL. It has come down as low as 1.1 before fluctuating back up to 1.5-1.6 as noted by recent blood work /testing. Renal consultation was requested due to her acute kidney injury/acute renal failure. Presumably, her insult was secondary to the aforementioned urinary tract infection and with appropriate antibiotics and seems to have improved but her recent decline in renal function may be more related to some of her other medications including the previous used antibiotics proton pump inhibitors, [place], and Bactrim. All these potential nephrotoxic agents have been held and is unclear to me how well she is eating and drinking but relati
[2023-04-30] VITALS (9 sets, daily range): BP systolic 123–136; BP diastolic 44–58; PULSE 80–105; RESP 17–18; TEMP 36.5–36.9; O2SAT 91–100
[2023-04-30 06:22] LABS: Basophils Percent Auto 0.5 % (0.2-1.2); Eosinophils Absolute Auto 0.2 K/mm3 (0-0.3); Eosinophils Percent Auto 2.7 % (0-4.4); Hematocrit 33.3 % (37.0-47.0); Hemoglobin 10.3 g/dL (12.0-15.0); Immature Granulocyte Absolute 0.04 K/mm3 (0.00-0.031); Immature Granulocyte Percent A 0.5 % (0-0.5); Lymphocytes Absolute Auto 1.59 K/mm3 (0.9-3.2); Lymphocytes Percent Auto 21.5 % (18.3-44.2); Mean Corpuscular HGB Conc 30.9 g/dl (32-36); Mean Corpuscular Hemoglobin 26.7 pg (26-34); Mean Corpuscular Volume 86.3 fl (80-100); Mean Platelet Volume 10.7 fl (7.4-10.4); Monocytes Absolute Auto 0.6 K/mm3 (0.1-0.6); Monocytes Percent Auto 8.3 % (2.6-8.5); Neutrophils Absolute Auto 4.9 K/mm3 (1.3-6.7); Neutrophils Percent Auto 66.5 % (45.5-73.1); Platelet Count Result 263 k/mm3 (150-375); Red Blood Count 3.86 M/mm3 (4.2-5.4); Red Cell Distribution Width 13.2 % (11.5-14.5); White Blood Count 7.4 K/mm3 (4.5-10.0)
[2023-04-30 06:29] LABS: Alanine Aminotransferase 23 U/L (6-35); Albumin Level 4.1 g/dL (3.5-5.1); Alkaline Phosphatase 64 U/L (38-126); Anion Gap 10 mmol/L (8-16); Aspartate Amino Transferase 23 U/L (14-36); Bilirubin,Total 0.3 mg/dL (0.2-1.3); Blood Urea Nitrogen 21 mg/dL (7-17); Calcium 9.7 mg/dL (8.4-10.2); Carbon Dioxide 29 mmol/L (22-30); Chloride 104 mmol/L (98-107); Estimated CRCL calculation 28 ml/min; Estimated Glomerular Filt Rate 43; Glucose 95 mg/dL (65-110); Potassium 4.8 mmol/L (3.4-5.0); Sodium 143 mmol/L (137-145)
[2023-04-30] MEDS: ENOXAPARIN 30 MG/0.3 ML SYRINGE SUB-Q (10:00)
--- NOTE | 2023-04-30 11:03 | PM.IMPN ---
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 will likely need to decrease dose. monitor mental status otherwise. protonix lithium and bactrim dc'ed. kidney function better. potassium level normal. pending discharge back to SNF based on above. stable. full code Subjective Date/time seen: 04/30/23 11:03 Interval history: NAOE. patient awoken from sleep. her usual, pleasantly demented self. follows commands intermittently Review of Systems Review of Systems: All systems reviewed & are unremarkable except as noted in HPI and below Exam Const: General: comfortable and no acute distress Neck: Neck: supple Resp: Effort & Inspection: normal respiratory effort Auscultation: clear to auscultation bilaterally Cardio: Rate: regular rate Rhythm: regular rhythm Extrem: General: no edema Objective Data Vital Signs Vital Signs: Vital Signs - 24 hr 04/29/23 12:00 04/29/23 16:00 04/29/23 17:51 Temperature 97.4 F L Pulse Rate 117 H 82 90 Respiratory Rate 16 Blood Pressure 120/42 L Pulse Oximetry 100 Oxygen Delivery 04/29/23 20:12 04/29/23 20:00 04/29/23 20:00 Temperature 98.0 F Pulse Rate 85 85 Respiratory Rate 18 Blood Pressure 130/56 L Pulse Oximetry 100 Oxygen Delivery Room Air 04/30/23 00:00 04/30/23 04:00 04/30/23 05:30 Temperature 98.0 F Pulse Rate 86 104 H 84 Respiratory Rate 17 Blood Pressure 136/48 L Pulse Oximetry 100 Oxygen Delivery Intake/Output Intake/Output: Intake & Output 04/27/23 04/28/23 04/29/23 04/30/23 23:59 23:59 23:59 23:59 Intake Total 420 1660 1770 50 Output Total 200 300 700 200 Balance 220 1360 1070 -150 Meds/Results Medications: Active Medications Generic Name Dose Route Start Last Admin Trade Name Freq PRN Reason Stop Dose Admin Acetaminophen 650 mg 04/19/23 15:34 04/25/23 13:16 Acetaminophen Elixir 325 Mg/10.15 Ml Udc PO 650 mg Q6H PRN Administration Pain (Scale Score 1-3) Albuterol 2.5 mg 04/24/23 11:09 04/24/23 11:16 Albuterol Sulfate Neb 2.5 Mg/3 Ml Inh INHALATION 2.5 mg Q4HRT PRN Administration Shortness Of Breath Dextrose 12.5 gm 04/29/23 08:28 Dextrose 50% 25 Gm/50 Ml Syringe IV PUSH PRN PRN Hypoglycemia Protocol Enoxaparin Sodium 30 mg 04/26/23 09:00 04/29/23 09:24 Enoxaparin 30 Mg/0.3 Ml Syringe SUB-Q 30 mg DAILY SHAMIKA Administration Ferrous Sulfate 325 mg 04/20/23 09:00 04/29/23 08:52 Ferrous Sulfate [address] PO 325 mg DAILY SHAMIKA Administration Glucagon 1 mg 04/29/23 08:28 Glucagon For Inj 1 Mg Vial IM PRN PRN Hypoglycemia Protocol Glucose 15 gm 04/29/23 08:28 Glucose Oral Gel 15 Gm Of Glucse In 37.5 Gm Tube PO PRN PRN Hypoglycemia Protocol Haloperidol Lactate 5 mg 04/19/23 15:12 04/23/23 20:41 Haloperidol Lactate 5 Mg/Ml Vial IM 5 mg DAILY PRN Administration Agitation Dextrose 1,000 mls @ 100 mls/hr 04/29/23 08:28 Dextrose 5% 1,000 Ml IVPB PRN PRN Hypoglycemia Protocol Ipratropium [place] 0.5 mg 04/24/23 11:09 04/24/23 11:16 Ipratropium Br 0.02% Inh Soln 0.5 Mg/2.5 Ml Vial INHALATION 0.5 mg Q4HRT PRN Administration Shortness Of Breath Lorazepam 1 mg 04/24/23 10:57 04/25/23 13:16 Lorazepam Inj (*Crx) 2 Mg/Ml Vial IV PUSH 1 mg ONCE PRN Administration Anx
--- NOTE | 2023-04-30 11:16 | PCNFU ---
Nutrition Follow-Up Complete: Potential for inadequate oral intake related to loss of appetite, as evidenced by previous feeding tube, BMI 19. Goal: Adequate PO intake at least 75% meals and supplements - Not consistently meeting goal but intakes overall improved Maintain weight - Goal being met, need updated weight when possible Pt current nutrition is Low potassium diet, Minced & moist level 5. Ensure Compact TID for additional 220 kcal and 9 g protein each Nutrition recommendation: Continue with current nutrition care plan and orders. Last recorded weight is 47 kg. Bowel Motility: Last BM +1 04/29/23 Labs Reviewed: Hgb 10.3, Hct 33.3, GFR 43, BUN 21, Cre 1.5 Meds Noted: Keppra, protonix Skin: WNL Additional Notes: Intakes have improved but overall variable. 5,10,50,100. 0% breakfast, pt slept through breakfast today. Some intakes of Ensure Compact recorded. Discharge plan is back to [place]. Monitoring intakes, weights, labs, stool patterns, supplement tolerance, plan of care Follow up in 5 days
[2023-04-30] MEDS: THIAMINE HCL 100 MG TABLET PO (11:22)
[2023-04-30] MEDS: MULTIVITAMINS THERAPEUTIC TAB (*BKC) 1 TABLET PO (11:22)
[2023-04-30] MEDS: FERROUS SULFATE 325 MG TABLET DR PO (11:22)
--- NOTE | 2023-04-30 13:45 | PM.PNNEP ---
Progress Note: A&P Assessment and Plan (1) TITA (acute kidney injury): Code(s): N17.9 - Acute kidney failure, unspecified Status: Acute (2) Fall: Qualifiers: Encounter type: initial encounter Qualified Code(s): W19.XXXA - Unspecified fall, initial encounter Code(s): W19.XXXA - Unspecified fall, initial encounter Status: Acute (3) Acute urinary tract infection: Code(s): N39.0 - Urinary tract infection, site not specified Status: Acute (4) Facial laceration: Qualifiers: Encounter type: initial encounter Qualified Code(s): S01.81XA - Laceration without foreign body of other part of head, initial encounter Code(s): S01.81XA - Laceration without foreign body of other part of head, initial encounter Status: Acute (5) Acute metabolic encephalopathy: Code(s): G93.41 - Metabolic encephalopathy Status: Acute Plan renal function/creatinine better renal fucntion has been fluctuating since admission suspect related to medications in the context of UTI and possible fluctuating oral intake agree with holding any potential nephrotixic agents as able ensure adequate oral intake as tolerated; need further IVFs(?) follow repeat labs and UOP Will continue to follow.. Subjective Date/time seen: 04/30/23 13:45 Interval history: Follow-up for acute kidney injury/acute renal failure. No apparent distress noted; appears pleasantly demented (baseline mentation) at the time of my visit; no acute complaints voiced; no issues/events overnight or earlier this AM. Exam Narrative: General: frail appearing female in NAD Heart: normal S1 and S2; no rub Lungs: clear to auscultation Abdomen: soft, nontender, nondistended, positive bowel sounds Extremities: no cyanosis or clubbing; no edema Skin: warm and dry Objective Data Vital Signs Vital Signs: Vital Signs Temp Pulse Resp BP Pulse Ox O2 Del Method 04/30/23 13:00 97.7 F 83 17 132/58 L 100 04/30/23 05:30 98.0 F 84 17 136/48 L 100 04/30/23 04:00 104 H 04/30/23 00:00 86 04/29/23 20:00 85 04/29/23 20:00 Room Air 04/29/23 20:12 98.0 F 85 18 130/56 L 100 04/29/23 17:51 97.4 F L 90 16 120/42 L 100 Intake/Output Intake/Output: Intake & Output 04/27/23 04/28/23 04/29/23 04/30/23 23:59 23:59 23:59 23:59 Intake Total 420 1660 1770 631 Output Total 200 300 700 200 Balance 220 1360 1070 431 Meds/Results Medications: Active Medications Generic Name Dose Route Start Last Admin Trade Name Freq PRN Reason Stop Dose Admin Acetaminophen 650 mg 04/19/23 15:34 04/25/23 13:16 Acetaminophen Elixir 325 Mg/10.15 Ml Udc PO 650 mg Q6H PRN Administration Pain (Scale Score 1-3) Albuterol 2.5 mg 04/24/23 11:09 04/24/23 11:16 Albuterol Sulfate Neb 2.5 Mg/3 Ml Inh INHALATION 2.5 mg Q4HRT PRN Administration Shortness Of Breath Dextrose 12.5 gm 04/29/23 08:28 Dextrose 50% 25 Gm/50 Ml Syringe IV PUSH PRN PRN Hypoglycemia Protocol Enoxaparin Sodium 30 mg 04/26/23 09:00 04/30/23 10:00 Enoxaparin 30 Mg/0.3 Ml Syringe SUB-Q 30 mg DAILY SHAMIKA Administration Ferrous Sulfate 325 mg 04/20/23 09:00 04/30/23 11:22 Ferrous Sulfate [address] PO 325 mg DAILY SHAMIKA Administration Glucagon 1 mg 04/29/23 08:28 Glucagon For Inj 1 Mg Vial IM PRN PRN Hypoglycemia Protocol Glucose 15 gm 04/29/23 08:28 Glucose Oral Gel 15 Gm Of Glucse In 37.5 Gm Tube PO PRN PRN Hypoglycemia Protocol Haloperidol Lactate 5 mg 04/19/23 15:12 04/23/23 20:41 Haloperidol Lactate 5 Mg/Ml Vial IM 5 mg DAILY PRN Administration Agitation Dextrose 1,000 mls @ 100 mls/hr 04/29/23 08:28 Dextrose 5% 1,000 Ml IVPB PRN PRN Hypoglycemia Protocol Ipratropium Richardson 0.5 mg 04/24/23 11:09 04/24/23 11:16 Ipratropium Br 0.02% I
[2023-04-30 16:14] LABS: SARS-CoV-2 RNA PCR Positive (Negative)
[2023-04-30] MEDS: traZODone HCL 25 MG TABLET PO (21:31)
[2023-05-01] VITALS: PULSE 94
[2023-05-01 04:00] VITALS: PULSE 79
[2023-05-01 06:00] VITALS: BP 159/50; PULSE 86; RESP 18; TEMP 36.7; O2SAT 100
[2023-05-01 06:05] LABS: Basophils Absolute Auto 0.1 K/mm3 (0.0-0.1); Basophils Percent Auto 0.6 % (0.2-1.2); Eosinophils Absolute Auto 0.3 K/mm3 (0-0.3); Eosinophils Percent Auto 2.7 % (0-4.4); Hematocrit 31.5 % (37.0-47.0); Hemoglobin 9.9 g/dL (12.0-15.0); Immature Granulocyte Absolute 0.06 K/mm3 (0.00-0.031); Immature Granulocyte Percent A 0.6 % (0-0.5); Lymphocytes Absolute Auto 2.13 K/mm3 (0.9-3.2); Lymphocytes Percent Auto 21.5 % (18.3-44.2); Mean Corpuscular HGB Conc 31.4 g/dl (32-36); Mean Corpuscular Volume 85.8 fl (80-100); Mean Platelet Volume 10.6 fl (7.4-10.4); Monocytes Absolute Auto 0.7 K/mm3 (0.1-0.6); Neutrophils Absolute Auto 6.7 K/mm3 (1.3-6.7); Neutrophils Percent Auto 67.6 % (45.5-73.1); Platelet Count Result 307 k/mm3 (150-375); Red Blood Count 3.67 M/mm3 (4.2-5.4); Red Cell Distribution Width 13.2 % (11.5-14.5); White Blood Count 9.9 K/mm3 (4.5-10.0)
[2023-05-01 06:26] LABS: Alanine Aminotransferase 24 U/L (6-35); Albumin Level 4.5 g/dL (3.5-5.1); Alkaline Phosphatase 66 U/L (38-126); Anion Gap 11 mmol/L (8-16); Aspartate Amino Transferase 23 U/L (14-36); Bilirubin,Total 0.3 mg/dL (0.2-1.3); Blood Urea Nitrogen 16 mg/dL (7-17); Calcium 9.7 mg/dL (8.4-10.2); Carbon Dioxide 28 mmol/L (22-30); Chloride 103 mmol/L (98-107); Estimated CRCL calculation 32 ml/min; Estimated Glomerular Filt Rate 51; Glucose 108 mg/dL (65-110); Magnesium 1.9 mg/dL (1.6-2.3); Potassium 4.4 mmol/L (3.4-5.0); Sodium 142 mmol/L (137-145)
--- NOTE | 2023-05-01 09:50 | PM.DS ---
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 - Quadriplegia, unspecified Status: Acute (3) TITA (acute kidney injury): Code(s): N17.9 - Acute kidney failure, unspecified Status: Acute (4) Fall: Qualifiers: Encounter type: initial encounter Qualified Code(s): W19.XXXA - Unspecified fall, initial encounter Code(s): W19.XXXA - Unspecified fall, initial encounter Status: Acute (5) Acute metabolic encephalopathy: Code(s): G93.41 - Metabolic encephalopathy Status: Acute (6) Seizure disorder: Code(s): G40.909 - Epilepsy, unspecified, not intractable, without status epilepticus Status: Chronic DS: Summary Hospital Course Hospital Course: 58F long time resident of [place] [facility] w/ PMH AOCD, GERD, previous G tube dependency, depression with anxiety, neurocognitive decline, s/p INSTRUCTOR KNITTING shunt, PPM, epilepsy, CKD stage 3a, presented from [place] after a ground level fall and agitation + confusion. She was found to have a UTI 2/2 e coli, treated with ertapenem then bactrim. Bactrim was stopped due to hyperkalemia. Her agitation resolved and returned to baseline dementia of A&Ox1. UTI was treated. reportedly the patient may have a had a seizure, neurology was consulted but no further recommendations provided. lithium was dc'ed and TITA resolved. although TITA resolution could have been 2/2 to UTI being treated she also had a supratherapeutic keppra level. keppra decreased from 1000mg po bid to 500mg po bid, she will have recheck in 1 week and f/u with PCP and neurology she is stable and being dc'ed back to [place]. she was full code during her stay. Time Spent with Patient Time attestation: Total time spent providing and/or coordinating discharge services: Exam Const: General: cooperative and no acute distress Resp: Effort & Inspection: normal respiratory effort Auscultation: clear to auscultation bilaterally Cardio: Rate: regular rate Rhythm: regular rhythm Heart sounds: S1 normal heart sound present and S2 normal heart sound present GI: GI Palp: No abdominal tenderness Auscultation: normal bowel sounds DS: Data Data Completed and Pending Labs on day of discharge: Labs from last 24 hours 05/01/23 04/30/23 05:48 13:53 WBC 9.9 RBC 3.67 L Hgb 9.9 L Hct 31.5 L MCV 85.8 MCH 27.0 MCHC 31.4 L RDW 13.2 Plt Count 307 MPV 10.6 H Immature Gran % (Auto) 0.6 H Neut % (Auto) 67.6 Lymph % (Auto) 21.5 [place] % (Auto) 7.0 Eos % (Auto) 2.7 Baso % (Auto) 0.6 Lymph # (Auto) 2.13 [place] # (Auto) 0.7 H Eos # (Auto) 0.3 Baso # (Auto) 0.1 Abs Immat Gran (auto) 0.06 H Absolute Neuts (auto) 6.7 Absolute Nucleated RBC 0.0 Nucleated RBC % 0.0 Sodium 142 Potassium 4.4 Chloride 103 Carbon Dioxide 28 Anion Gap 11 BUN 16 Creatinine 1.30 H Estim Creat Clear Calc 32 Estimated GFR 51 L Glucose 108 Calcium 9.7 Magnesium 1.9 Total Bilirubin 0.3 AST 23 ALT 24 Alkaline Phosphatase 66 Total Protein 8.0 Albumin 4.5 SARS-CoV-2 RNA (RT-PCR) Positive A Discharge Plan Discharge Attending physician on discharge: Kamille Eng Consulting providers: Bushra Gan; Irina Bridges Discharging Clinician: Kamille Eng Patient Disposition: SNF Activity: october shower Diet: as tolerated Stand Alone Forms: General Discharge Information Follow-up/Referrals: Sánchez,Sonja Kearney MD [Primary Care Provider] - 2 Weeks Bushra Gan MD [Physician] - 1 Week (follow up on keppra and keppra level) Discharge Medications: New levetiracetam [Keppra] 500 mg tablet 500 mg PO BID Qty: 90 1RF Continued
[2023-05-01] MEDS: ENOXAPARIN 30 MG/0.3 ML SYRINGE SUB-Q (10:20)
[2023-05-01] MEDS: FERROUS SULFATE 325 MG TABLET DR PO (10:21)
[2023-05-01] MEDS: THIAMINE HCL 100 MG TABLET PO (10:21)
[2023-05-01] MEDS: MULTIVITAMINS THERAPEUTIC TAB (*BKC) 1 TABLET PO (10:21)
== END 2023-05-01 12:15 | DRG 469 ==
LOC: ANHED 07:10 → ANH2MED 08:35
PROVIDERS: Internal Medicine; Admitting Provider Internal Medicine; Emergency Provider Student in an Organized Health Care Education/Training Program; PCP Internal Medicine; Visit Provider General Practice
DX: N17.9 Acute kidney failure, unspecified (principal); G93.41 Metabolic encephalopathy; S01.81XA Laceration without foreign body of other part of head, initial encounter; D53.9 Nutritional anemia, unspecified; F32.A Depression, unspecified; F41.9 Anxiety disorder, unspecified; N39.0 Urinary tract infection, site not specified; B96.20 Unspecified Escherichia coli [E. coli] as the cause of diseases classified elsewhere; Z16.12 Extended spectrum beta lactamase (ESBL) resistance; G40.909 Epilepsy, unspecified, not intractable, without status epilepticus; M62.81 Muscle weakness (generalized); W18.30XA Fall on same level, unspecified, initial encounter; Z95.0 Presence of cardiac pacemaker; Z98.2 Presence of cerebrospinal fluid drainage device; Z93.1 Gastrostomy status; K21.9 Gastro-esophageal reflux disease without esophagitis
CPT/HCPCS: 36415; 70450; 71045; 72125; 72170; 74176; 80048; 80053; 80177; 80178; 81001; 82550; 82948; 83605; 83735; 84484; 85025; 85055; 87040; 87077; 87086; 87088; 87186; 87635; 90471; 90715; 93005; 94640; 96361; 96365; 96372; 96374; 96375; 97162; 97164; 97165; 99285; A9270; C9113; G0378; G0379; J0612; J0696; J1200; J1335; J1630; J1650; J1815; J1953; J2060; J2250; J2359; J3411; J7030

== ENCOUNTER 2023-12-03 10:06 | Emergency (ER) | payer OTHER, SELFPAY ==
--- NOTE | ~2023-12-03 | XR_ITS ---
EXAMINATION: XR shunt series DATE: 12/03/2023 11:40 INDICATION: Discomfort. TECHNIQUE: 4 views of a shunt series were obtained. COMPARISON: Head CT 04/19/2023 FINDINGS: There is a left-sided ventriculoperitoneal shunt in expected position. No kink or disconnec tion of the radiopaque segments. There is a left chest wall pacer with leads in the right atrium and right ventricle. Surgical clips overlie the head and neck. There is instrumentation from prior cranio tomies. Embolization coils overlie the head on the right. There are gallstones in the gallbladder. IMPRESSION: 1. Normal ventriculoperitoneal shunt. Reviewed, dictated and finalized at location A.
--- NOTE | ~2023-12-03 | CT_ITS ---
EXAMINATION: CT brain wo con DATE: 12/03/2023 12:51 INDICATION: Headache. TECHNIQUE: Computed tomography (CT) of the head was performed without intravenous contrast. The mA wa s adjusted according to patient size. Iterative reconstruction technique was employed. The dose-lengt h product was 681.00 mGy-cm. COMPARISON: Head CT 04/19/2023, 08/05/22 FINDINGS: There is chronic encephalomalacia involving the cerebellum bilaterally. There is chronic en cephalomalacia in right frontal parietal region. There is chronic encephalomalacia involving the righ t insula. There is chronic encephalomalacia in left parietal occipital region subjacent to an old bur r hole. There are changes of bilateral craniotomies. There is chronic encephalomalacia in left fronto parietal region with dystrophic calcifications. 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 T here is a chronic 2.1 x 1.2 cm left parietal parafalcine hyperdense mass, consistent with a meningiom a. There is a chronic 1.4 cm parafalcine mass adjacent to right frontal lobe, consistent with a menin gioma. There is a chronic 2.7 cm hyperdense mass in right temporal occipital region abutting the cere bellar tentorium, which may be a meningioma. There is a chronic 2.6 cm mass involving the left middle skull base and cerebellopontine angle, consistent with a meningioma. There is a left occipital parie damir shunt catheter with tip in body of left lateral ventricle. The lateral ventricles are small witho ut change. There is an embolization coil in right middle skull base. There are changes of suboccipita l craniectomy. There is mild mucosal thickening in the ethmoid sinuses. The mastoid air cells are nor mal. The orbits are normal. IMPRESSION: 1. Multifocal chronic encephalomalacia. 2. Multiple stable meningiomas. 3. Small lateral ventricles without change. Shunt catheter in expected position. Reviewed, dictated and finalized at location A. IMPRESSION: 1. Multifocal chronic encephalomalacia. 2. Multiple stable meningiomas. 3. Small lateral ventricles without change. Shunt catheter in expected position .
[2023-12-03 10:24] VITALS: BP 123/60; PULSE 66; RESP 17; TEMP 36.5; O2SAT 100
--- NOTE | 2023-12-03 13:16 | ED.GENADULT ---
HPI - General Adult General Chief complaint: Eye Problems Stated complaint: left eye swelling, hx of shunt Time Seen by Provider: 12/03/23 11:12 History of Present Illness HPI narrative: Patient is a 58-year-old female who presents ER with concerns for swelling of the left eye. Patient has history of brain ACCOUNT SERVICES MANAGER shunt placement. She has mild redness the medial aspect of the eye. There is some bruising to left face from scratches. Patient is awake alert and pleasantly orient x2. She has no complaints reports normal vision. Related Data Home Medications Medication Instructions Recorded Confirmed acetaminophen 325 mg tablet 650 mg feeding tube Q6H PRN Pain 08/08/22 04/19/23 (Scale Score 1-3) ferrous sulfate 325 mg (65 mg 325 mg feeding tube DAILY 08/08/22 04/19/23 iron) tablet multivitamin t-[id number]-[id number] 1 tablet PO DAILY 08/08/22 04/19/23 fumarate 18 mg-vitamin K 25 mcg tablet omeprazole 20 mg capsule,delayed 20 mg feeding tube DAILY 08/08/22 04/19/23 release thiamine HCl (vitamin B1) 100 mg 100 mg feeding tube DAILY 08/08/22 04/19/23 tablet trazodone 50 mg tablet 25 mg feeding tube Q6H PRN Anxiety 08/08/22 04/19/23 K-Phos Original See Rx Instructions .Route .COMPLEX 04/19/23 04/19/23 haloperidol lactate 5 mg/mL 5 mg IM DAILY PRN Agitation 04/19/23 04/19/23 injection solution Allergies Allergy/AdvReac Type Severity Reaction Status Date / Time No Known Allergies Allergy Verified 08/05/22 01:58 Review of Systems Review of Systems: ROS unobtainable: Yes unobtainable due to mental status PMFSH Past Medical History Medical History Anemia of chronic disease Cholelithiasis Chronic GERD Depression with anxiety Gastrostomy tube dependent Seizure disorder Uterine fibroid Surgical History Surgical History (Updated 08/08/22 @ 22:20 by Salud Martinez NP) H/O abdominal surgery History of appendectomy S/P ORIF (open reduction internal fixation) fracture Left elbow S/P ACCOUNT SERVICES MANAGER shunt Family History Family History Unknown No problems noted. Other Unknown family medical history Social History Social History (Updated 08/08/22 @ 22:21 by Salud Martinez NP) Social History: The patient is single and disabled. Clyde Mtaos a sibling is the power green building design specialist listed for the patient and another personal lines agent is Nayeli montgomery who is listed as a sibling. Code status full code Smoking status: Unknown if ever smoked Alcohol intake: never Substance use: never Spiritual care concerns: No Exam Narrative: GENERAL: Well-appearing, well-nourished, and in no acute distress. HEAD: Normocephalic, atraumatic. EYES: PERRL and EOMI. Left eye pressure 12 mmHg. Mild redness the medial aspect of the sclera of the left eye. ENT: Mucous membranes moist. CHEST: Clear to auscultation. No respiratory distress. HEART: Regular rate and rhythm. Normal peripheral pulses. EXTREMITIES: Normal range of motion. No edema. SKIN: Warm, dry, Bruising/ abrasions to left face from scratching. NEURO: Alert and oriented x2. PSYCH: Normal mood and affect. Course Course Emergency Course: Normal eye pressure, normal CT scan and shunt series. Discharge. Vital Signs Vital signs: Vital Signs Temperature 97.7 F 12/03/23 10:24 Pulse Rate 66 12/03/23 10:24 Respiratory Rate 17 12/03/23 10:24 Blood Pressure 123/60 12/03/23 10:24 Pulse Oximetry 100 12/03/23 10:24 Oxygen Delivery Room Air 12/03/23 10:24 Temperature 97.7 F 12/03/23 10:24 Pulse Rate 66 12/03/23 10:24 Respiratory Rate 17 12/03/23 10:24 Blood Pressure 123/60 12/03/23 10:24 Pulse Oximetry 100 12/03/23 10:24 Oxygen Delivery Room Air 12/03/23 10:24 Medical Decision Making Vital Signs Vital Signs: Vital Signs Temperature 97.7 F 12/03/23 10:24 Pulse Rate 66
[2023-12-03 13:50] VITALS: BP 142/86; PULSE 80; RESP 16; O2SAT 98
== END 2023-12-03 13:51 | disposition home or self-care (01) ==
PROVIDERS: Emergency Provider Emergency Medicine; PCP Internal Medicine
DX: S00.81XA Abrasion of other part of head, initial encounter (principal); G40.909 Epilepsy, unspecified, not intractable, without status epilepticus; D63.8 Anemia in other chronic diseases classified elsewhere; K21.9 Gastro-esophageal reflux disease without esophagitis; F41.8 Other specified anxiety disorders; Z98.2 Presence of cerebrospinal fluid drainage device; Z79.899 Other long term (current) drug therapy; X58.XXXA Exposure to other specified factors, initial encounter
CPT/HCPCS: 70250; 70450; 71045; 74018; 99284

== ENCOUNTER 2024-03-02 09:33 | Emergency (ER) | payer OTHER, SELFPAY ==
--- NOTE | ~2024-03-02 | CT_ITS ---
EXAMINATION: CT brain wo con DATE: 03/02/2024 10:29 INDICATION: Headache TECHNIQUE: Computed tomography (CT) of the head was performed without intravenous contrast. Sagittal and coronal reconstructions were performed. The mA was adjusted according to patient size. Iterative reconstruction technique was employed. The dose-length product was 605.33 mGy-cm. COMPARISON: head CT dated 12/03/23 and 04/19/23 FINDINGS: There are multiple unchanged regions of encephalomalacia which include at the posterior medial aspect of the bilateral cerebellar hemispheres, along the anterior right sylvian fissure involving the righ t frontal and temporal lobes and intervening insula and in the bilateral frontoparietal regions. Ther e are associated peripheral dystrophic calcification in the left frontoparietal region. There are ass ociated postoperative changes associated with these regions of encephalomalacia. This includes a subo ccipital craniectomy at the posterior fossa minimal craniotomies at the right frontotemporal and bila teral frontoparietal regions. There is also a left parietal ruby hole with ventricular drainage libby ter extending anteriorly into the body of the left lateral ventricle. Small old lacunar infarct at th e right basal ganglia. There are a few unchanged hyperdense extra-axial masses consistent with meningiomas. This includes a 1.9 x 1.2 cm lesion along the left side of the posterior falx, 1.4 x 1.2 cm on the parafalcine right frontal lobe, 8 mm in the left parieto-occipital region, 2.6 x 1.3 cm along the cephalad margin of th e right tentorium and 2.5 x 1.9 cm at the base of the left middle cranial fossa along the petrous ape x. No acute intracranial hemorrhage, acute infarction or abnormal extra axial fluid collection. Unchange d embolization coil of the skull base of the right middle cranial fossa. The lateral ventricles remai n small. The third and fourth ventricles are normal. Mild mucosal thickening the left ethmoid sinus. The orbits and mastoid air cells are normal. There is a partially imaged chronic defect in the drive thru order taker ior ring of C1. IMPRESSION: 1. No acute intracranial process. 2. Stable appearance of chronic multifocal encephalomalacia in the bilateral cerebral and cerebellar hemispheres with overlying postoperative changes. Correlate with clinical/surgical history. 3. Stable appearance of multiple small hyperdense extra-axial masses most consistent with meningiomas . 4. Unchanged small old lacunar infarct at the right basal ganglia. 5. Unchanged small left and right lateral ventricles with unchanged left parietal ventricular shunt c atheter with tip in the body of the left lateral ventricle. Reviewed, dictated and finalized at location B. IMPRESSION: 1. No acute intracranial process. 2. Stable appearance of chronic multifocal encephalomalacia in the bilateral ce rebral and cerebellar hemispheres with overlying postoperative changes. Correla te with clinical/surgical history. 3. Stable appearance of multiple small hyperdense extra-axial masses most consi stent with meningiomas. 4. Unchanged small old lacunar infarct at the right basal ganglia. 5. Unchanged small left and right lateral ventricles with unchanged left pariet al ventricular shunt catheter with tip in the body of the left lateral ventricl e.
[2024-03-02 09:35] VITALS: BP 126/50; PULSE 59; RESP 20; TEMP 37.1; O2SAT 100
--- NOTE | 2024-03-02 09:58 | ED.GENADULT ---
HPI - General Adult General Chief complaint: Headache Stated complaint: MEJIA Time Seen by Provider: 03/02/24 09:40 History of Present Illness HPI narrative: 59-year-old female present to the emergency department from local [place] [facility] for evaluation for reported headache. At the [place] [facility] patient reportedly had a headache was having some low blood pressure. EMS was called. Upon arrival to the scene EMS states the patient was complaint free. Upon arrival to the emergency department patient states she has no headache but states that she is hungry. Related Data Home Medications Medication Instructions Recorded Confirmed acetaminophen 325 mg tablet 650 mg feeding tube Q6H PRN Pain 08/08/22 04/19/23 (Scale Score 1-3) ferrous sulfate 325 mg (65 mg 325 mg feeding tube DAILY 08/08/22 04/19/23 iron) tablet multivitamin t-mbqfalzv-poycipw 1 tablet PO DAILY 08/08/22 04/19/23 fumarate 18 mg-vitamin K 25 mcg tablet omeprazole 20 mg capsule,delayed 20 mg feeding tube DAILY 08/08/22 04/19/23 release thiamine HCl (vitamin B1) 100 mg 100 mg feeding tube DAILY 08/08/22 04/19/23 tablet trazodone 50 mg tablet 25 mg feeding tube Q6H PRN Anxiety 08/08/22 04/19/23 K-Phos Original See Rx Instructions .Route .COMPLEX 04/19/23 04/19/23 haloperidol lactate 5 mg/mL 5 mg IM DAILY PRN Agitation 04/19/23 04/19/23 injection solution Allergies Allergy/AdvReac Type Severity Reaction Status Date / Time No Known Allergies Allergy Verified 03/02/24 10:13 Review of Systems Review of Systems: All systems reviewed & are unremarkable except as noted in HPI and below PMFSH Past Medical History Medical History Anemia of chronic disease Cholelithiasis Chronic GERD Depression with anxiety Gastrostomy tube dependent Seizure disorder Uterine fibroid Surgical History Surgical History (Updated 08/08/22 @ 22:20 by Salud Martinez NP) H/O abdominal surgery History of appendectomy S/P ORIF (open reduction internal fixation) fracture Left elbow S/P RADIO ENGINEERING TEACHER shunt Family History Family History Unknown No problems noted. Other Unknown family medical history Social History Social History (Updated 08/08/22 @ 22:21 by Salud Martinez NP) Social History: The patient is single and disabled. Clyde Matos a sibling is the power district attorney listed for the patient and another social contact worker is Nayeli montgomery who is listed as a sibling. Code status full code Smoking status: Unknown if ever smoked Alcohol intake: never Substance use: never Spiritual care concerns: No Exam Narrative: APPEARANCE: Well appearing, no pain, no distress, well-nourished. HEAD: normocephalic, atraumatic. EYES: PERRLA/EOMI, conjunctivae clear. NOSE: Normal no drainage EARS:TMS clear with good light reflex. THROAT: Pharynx clear, no exudate. NECK: Supple. No adenopathy, no masses. RESPIRATORY: Airway patent, respirations nonlabored. Clear to auscultation bilaterally, no rales, rhonchi, wheezing. CARDIOVASCULAR: Regular rate and rhythm without murmurs rubs or gallops. ABDOMINAL: Soft, nontender, nondistended, normal bowel sounds MUSCULOSKELETAL: Moves all extremities. Strength/ROM intact, No edema, No calf tenderness. NEURO: Alert. Cranial nerves II through XII intact. Grossly intact SKIN: Warm, dry. Normal Color Course Course Emergency Course: Patient was discharged back to her care facility. Vital Signs Vital signs: Vital Signs Temperature 98.7 F 03/02/24 09:35 Pulse Rate 59 L 03/02/24 09:35 Respiratory Rate 20 03/02/24 09:35 Blood Pressure 126/50 L 03/02/24 09:35 Pulse Oximetry 100 03/02/24 09:35 Oxygen Delivery Room Air 03/02/24 09:35 Temperature 97.8 F 03/02/24 12:50 Pulse Rate 82 03/02/24 12:50 Respiratory Rate 22 H 03/02/24 12:50 Blood Pressure 130/58 L 03/02/24 12:50 Pulse
[2024-03-02 10:13] VITALS: BP 120/64; PULSE 92; RESP 16; O2SAT 100
[2024-03-02 10:15] LABS: Basophils Percent Auto 0.4 % (0.2-1.2); Eosinophils Percent Auto 0.4 % (0-4.4); Hematocrit 34.1 % (37.0-47.0); Hemoglobin 10.8 g/dL (12.0-15.0); Immature Granulocyte Absolute 0.04 K/mm3 (0.00-0.031); Immature Granulocyte Percent A 0.4 % (0-0.5); Lymphocytes Absolute Auto 1.11 K/mm3 (0.9-3.2); Lymphocytes Percent Auto 12.1 % (18.3-44.2); Mean Corpuscular HGB Conc 31.7 g/dl (32-36); Mean Corpuscular Hemoglobin 27.4 pg (26-34); Mean Corpuscular Volume 86.5 fl (80-100); Mean Platelet Volume 11.2 fl (7.4-10.4); Monocytes Absolute Auto 0.6 K/mm3 (0.1-0.6); Monocytes Percent Auto 6.8 % (2.6-8.5); Neutrophils Absolute Auto 7.3 K/mm3 (1.3-6.7); Neutrophils Percent Auto 79.9 % (45.5-73.1); Platelet Count Result 209 k/mm3 (150-375); Red Blood Count 3.94 M/mm3 (4.2-5.4); Red Cell Distribution Width 14.2 % (11.5-14.5); White Blood Count 9.2 K/mm3 (4.5-10.0)
[2024-03-02 10:25] LABS: Alanine Aminotransferase 11 U/L (6-35); Albumin Level 4.6 g/dL (3.5-5.1); Alkaline Phosphatase 46 U/L (38-126); Anion Gap 12 mmol/L (4-12); Aspartate Amino Transferase 21 U/L (14-36); Bilirubin,Total 0.5 mg/dL (0.2-1.3); Blood Urea Nitrogen 22 mg/dL (7-17); Calcium 8.6 mg/dL (8.4-10.2); Carbon Dioxide 24 mmol/L (22-30); Chloride 108 mmol/L (98-107); Estimated Glomerular Filt Rate 40; Glucose 96 mg/dL (65-110); Potassium 4.7 mmol/L (3.4-5.0); Sodium 144 mmol/L (137-145)
[2024-03-02 10:55] LABS: Influenza A QL RT-PCR Negative (Negative); Influenza B QL RT-PCR Negative (Negative); RSV RNA, RT-PCR Negative (Negative); SARS-CoV-2 RNA PCR Negative (Negative)
--- NOTE | 2024-03-02 12:38 | PC.NURSE ---
Attempted to call report to [facility] [place] and was placed on hold for 10 minutes with no answer. Attempted to call back and received no answer
[2024-03-02 12:50] VITALS: BP 130/58; PULSE 82; RESP 22; TEMP 36.6; O2SAT 100
[2024-03-02] MEDS: ACETAMINOPHEN 500 MG TABLET 1000 MG PO (12:59)
== END 2024-03-02 14:04 ==
PROVIDERS: Emergency Provider Emergency Medicine; PCP Internal Medicine
DX: R51.9 Headache, unspecified (principal); Z20.822 Contact with and (suspected) exposure to COVID-19; G40.909 Epilepsy, unspecified, not intractable, without status epilepticus; D64.9 Anemia, unspecified; K21.9 Gastro-esophageal reflux disease without esophagitis; Z98.2 Presence of cerebrospinal fluid drainage device; Z79.899 Other long term (current) drug therapy
CPT/HCPCS: 36415; 70450; 80053; 85025; 87637; 99284; A9270

== ENCOUNTER 2024-05-13 19:40 | Emergency (ER) | payer OTHER, SELFPAY ==
--- NOTE | ~2024-05-13 | CT_ITS ---
CT cervical spine wo con Ordering provider: Maida Ferrer MD History: . FALL . Comparison: April 19, 2023 Technique: CT of the cervical spine was performed without contrast. Sagittal and coronal reformatted images were also obtained and reviewed. Automated exposure control and iterative reconstruction aaliyah hnique were employed. The dose-length product was 170.11 mGy-cm. FINDINGS: VERTEBRAE: Fusion of C3-C4 is noted. Postoperative changes in the posterior fossa and in the posterio r arch of C1. No subluxation or acute fracture. The occipital condyles are intact. DISC SPACES: Narrowing of the disc C5-C6. PARASPINOUS SOFT TISSUES: Enlarged thyroid gland with calcification and nodule in the isthmus. Ultras ound evaluation advised. IMPRESSION: No acute osseous abnormality cervical spine. Postoperative changes in the occipital bone and posterior arch of C1. Fusion of C3-C4. Enlarged thyroid. Ultrasound evaluation advised. Reviewed, dictated and finalized at location A. BORER
--- NOTE | ~2024-05-13 | CT_ITS ---
CT brain wo con Ordering provider: Jeff Montague MD History: 59 years Female with . unwittnessed ground level fall/ pt has shunts . Comparison: March 02, 2024 Technique: CT of the head without contrast. Radiation reduction technique utilized.The dose-length pr oduct was 605.33 mGy-cm. FINDINGS: BRAIN PARENCHYMA AND CSF SPACES: Mild leukoaraiosis and diffuse cortical atrophy. Mild atheromatous d isease. The No midline shift, mass effect or hemorrhage. Hyperdense area seen in the medial temporal area on the right side which is unchanged from previous examination. Calcifications in the left front al area are also noted unchanged from previous examination. Postoperative changes in the right fronta l, left parietal and occipital areas is noted. Hyperdensity in the left parasagittal area is also not ed unchanged. Encephalomalacia with postoperative changes in the right temporal area is also noted. E ncephalomalacia in the cerebellar hemispheres posteriorly is seen. Encephalomalacia in the right fron damir area is noted. Left parietal shunt tube is seen with the tip in the area of the left foramen of M onro.. Small hyperdense lesion seen in the left posterior frontal lobe dura. The brain parenchyma and CSF spaces are otherwise normal. VISUALIZED PARANASAL SINUSES: Well aerated. MASTOIDS: Well aerated. BONES: Multiple craniotomies. SOFT TISSUES: Visualized nasopharynx is normal. Superficial soft tissues are normal. IMPRESSION: No acute intracranial findings. Multiple other findings which are not changed from previous examination. Reviewed, dictated and finalized at location A. CIPAL ACCOUNTS CLERK
[2024-05-13 19:44] VITALS: BP 153/85; PULSE 104; RESP 16; TEMP 37.1; O2SAT 100
--- NOTE | 2024-05-13 19:49 | PC.NURSE ---
correction report now reporting pt did not have an unwitnessed fall but that she was attempting to leave the [facility] when staff stopped her. Pt tripped and hit head against a door frame.
[2024-05-13 19:52] VITALS: BP 153/85; PULSE 107; RESP 22; TEMP 36.7; O2SAT 100
--- NOTE | 2024-05-13 19:56 | ED.FALL ---
HPI - Fall General Chief Complaint: Fall Stated Complaint: POSSIBLE FALL, PT DENIES C/O Time Seen by Provider: 05/13/24 19:46 Source: EMS Mode of arrival: EMS History of Present Illness HPI Narrative: PATIENT CAME TO THE ED BY AMBULANCE FROM SNF COMPLAINING OF A FALL. HISTORY OF ENCEPHALOPATHY SNF STAFF WAS CONCERN WITH THE SHUNTS FROM THE FALL. PATIENT NORMALLY AWAKE AND ORIENTED TO HER NAME ONLY Related Data Home Medications Medication Instructions Recorded Confirmed acetaminophen 325 mg tablet 650 mg feeding tube Q6H PRN Pain 08/08/22 04/19/23 (Scale Score 1-3) ferrous sulfate 325 mg (65 mg 325 mg feeding tube DAILY 08/08/22 04/19/23 iron) tablet multivitamin x-jqokjzyj-qbqbsih 1 tablet PO DAILY 08/08/22 04/19/23 fumarate 18 mg-vitamin K 25 mcg tablet omeprazole 20 mg capsule,delayed 20 mg feeding tube DAILY 08/08/22 04/19/23 release thiamine HCl (vitamin B1) 100 mg 100 mg feeding tube DAILY 08/08/22 04/19/23 tablet trazodone 50 mg tablet 25 mg feeding tube Q6H PRN Anxiety 08/08/22 04/19/23 K-Phos Original See Rx Instructions .Route .COMPLEX 04/19/23 04/19/23 haloperidol lactate 5 mg/mL 5 mg IM DAILY PRN Agitation 04/19/23 04/19/23 injection solution Allergies Allergy/AdvReac Type Severity Reaction Status Date / Time No Known Allergies Allergy Verified 03/02/24 10:13 Review of Systems Review of Systems: ROS unobtainable: Yes unobtainable due to mental status PMFSH Past Medical History Medical History Anemia of chronic disease Cholelithiasis Chronic GERD Depression with anxiety Gastrostomy tube dependent Seizure disorder Uterine fibroid Surgical History Surgical History H/O abdominal surgery History of appendectomy S/P ORIF (open reduction internal fixation) fracture Left elbow S/P ENVIRONMENTAL PROFESSIONAL shunt Family History Family History Unknown No problems noted. Other Unknown family medical history Social History Social History Social History: The patient is single and disabled. Clyde Matos a sibling is the power tax associate attorney listed for the patient and another service advocate contact is Nayeli montgomery who is listed as a sibling. Code status full code Smoking status: Unknown if ever smoked Alcohol intake: never Substance use: never Spiritual care concerns: No Exam Narrative: GENERAL APPEARANCE: WELL-DEVELOPED, MILD LARGE, DOES NOT LOOK IN PAIN OR DISTRESS, DOES NOT FOLLOW VERBAL COMMANDS, PHYSICALLY ACTIVE, KEEP MOVING HER ARMS AND WANT TO GET OUT OF BED TO WALK. SKIN: NORMAL COLOR HEAD: NORMOCEPHALIC, NONTRAUMATIC EYES: CLEAR CONJUNCTIVA ENT: OROPHARYNX NORMAL, EARS NORMAL, NOSE NORMAL NECK: SUPPLE, NONTENDER CHEST AND RESPIRATORY: AIRWAY PATENT, NO RESPIRATORY DISTRESS, NO ACCESSORY MUSCLE USE HEART: REGULAR RATE/RHYTHM MUSCULOSKELETAL: NORMAL RANGE OF MOTION, NONTENDER BACK NEUROLOGIC: ALERT AND ORIENTED TO HER NAME ONLY Course Vital Signs Vital signs: Vital Signs Temperature 37.1 C 05/13/24 19:44 Pulse Rate 104 H 05/13/24 19:44 Respiratory Rate 16 05/13/24 19:44 Blood Pressure 153/85 H 05/13/24 19:44 Pulse Oximetry 100 05/13/24 19:44 Oxygen Delivery Room Air 05/13/24 19:44 Temperature 36.7 C 05/13/24 19:52 Pulse Rate 107 H 05/13/24 19:52 Respiratory Rate 22 H 05/13/24 19:52 Blood Pressure 153/85 H 05/13/24 19:52 Pulse Oximetry 100 05/13/24 19:52 Oxygen Delivery Room Air 05/13/24 19:44 MDM - Fall MDM Narrative Medical decision making narrative: DIFFERENTIAL DIAGNOSIS INCLUDE CLOSED HEAD INJURY, INTRACRANIAL HEMORRHAGE, NECK FRACTURE CT HEAD AND CERVICAL SPINE SHOWED NO ACUTE ABNORMALITIES EXCEPT THYROMEGALY, ULTRASOUND THYROID GLAND IS RECOMMENDED. Differential Diagnosis Differential diagnosis: Likely other ( ABOVE) Imaging Data Radiologist's impression: Impressions Head CT 05/13/24 20:59 IMPRESSION: No acute intracranial findings. Multiple other findings which are not changed from previous examination. Cervical Spine CT 05/13/24 21:18 IMPRESSION: No acute osseous abnormality cervical spine. Postoperative changes in the occipital bone and posterior arch of C1. Fusion of C3-C4. Enlarged thyroid. Ultrasound evaluation advised. Critical Care Time Critical Care Time Critical Care Time: No Discharge Plan Discharge Clinical Impression: CHI (closed head injury), Thyromegaly Patient Disposition: NH [facility]/Asst Living Condition: Stable Instructions: Head Injury (DC), Thyroid Goiter (ED) Additional Instructions: RETURN IF SYMPTOMS ARE WORSENING , CALL YOUR FAMILY PHYSICIAN FOR APPOINTMENT, TAKE TYLENOL NEEDED FOR ACHES AND PAIN, CONTINUE HOME MEDICATIONS. PATIENT WORKUP TODAY SHOWED THAT SHE HAVE LARGE THYROID GLAND WHICH REQUIRES FURTHER EVALUATION, THYROID ULTRASOUND IS RECOMMENDED. Prescriptions: No Action acetaminophen 325 mg Tablet 650 mg feeding tube Q6H PRN (Reason: Pain (Scale Score 1-3)) trazodone 50 mg tablet 25 mg feeding tube Q6H PRN (Reason: Anxiety) thiamine HCl (vitamin B1) 100 mg Tablet 100 mg feeding tube DAILY ferrous sulfate 325 mg (65 mg iron) Tablet 325 mg feeding tube DAILY omeprazole 20 mg capsule,delayed release(DR/EC) 20 mg feeding tube DAILY szlbxmvu-liu-owcm-vitamin K 18 mg iron-25 mcg Tablet 1 tablet PO DAILY haloperidol lactate 5 mg/mL Solution 5 mg IM DAILY PRN (Reason: Agitation) K-Phos Original See Rx Instructions .ROUTE .COMPLEX Rx Instructions: [id number] mg BID levetiracetam [Keppra] 500 mg tablet 500 mg PO BID Qty: 90 1RF Follow-up/Referrals: Sánchez,Sonja Kearney MD [Primary Care Provider] -
== END 2024-05-13 22:15 ==
PROVIDERS: Emergency Provider Emergency Medicine; PCP Internal Medicine
DX: S09.90XA Unspecified injury of head, initial encounter (principal); E01.0 Iodine-deficiency related diffuse (endemic) goiter; G93.40 Encephalopathy, unspecified; G40.909 Epilepsy, unspecified, not intractable, without status epilepticus; K21.9 Gastro-esophageal reflux disease without esophagitis; D63.8 Anemia in other chronic diseases classified elsewhere; F41.8 Other specified anxiety disorders; Z98.2 Presence of cerebrospinal fluid drainage device; W19.XXXA Unspecified fall, initial encounter
CPT/HCPCS: 70450; 72125; 99284

== ENCOUNTER 2024-05-16 09:48 | Emergency (ER) | payer OTHER, SELFPAY ==
--- NOTE | ~2024-05-16 | CT_ITS ---
EXAMINATION: CT cervical spine wo con DATE: 05/16/2024 10:32 INDICATION: Neck injury. Fall. TECHNIQUE: Computed tomography (CT) of the cervical spine was performed without intravenous contrast. Automated exposure control and iterative reconstruction technique were employed. The dose-length pro duct was 81.17 mGy-cm. COMPARISON: CT cervical spine 05/13/24 FINDINGS: There is a multinodular goiter. There is a left-sided ventriculoperitoneal shunt. There is 3 degrees levocurvature of cervical spine. There is hypolordosis of cervical spine. There is anterior and posterior fusion at C3-C4. Vertebral body heights are normal. Intervertebral disc heights are no rmal. C1 ring is ununited posteriorly, which is chronic. The following disc levels are specifically d iscussed: C2-C3: There is no uncovertebral joint osteoarthritis. There is moderate bilateral facet joint osteoa rthritis. There is no neural foraminal stenosis. There is no central canal stenosis. C3-C4: There is no uncovertebral joint hypertrophy. There is no facet joint hypertrophy. There is no neural foraminal stenosis. There is no central canal stenosis. C4-C5: There is no uncovertebral joint osteoarthritis. There is mild bilateral facet joint osteoarthr itis. There is no neural foraminal stenosis. There is no central canal stenosis. C5-C6: There is no uncovertebral joint osteoarthritis. There is no facet joint osteoarthritis. There is no neural foraminal stenosis. There is no central canal stenosis. C6-C7: There is no uncovertebral joint osteoarthritis. There is mild bilateral facet joint osteoarthr itis. There is no neural foraminal stenosis. There is no central canal stenosis. C7-T1: There is no uncovertebral joint osteoarthritis. There is mild bilateral facet joint osteoarthr itis. There is no neural foraminal stenosis. There is no central canal stenosis. IMPRESSION: 1. No fracture. 2. Mild cervical spondylosis. 3. Multinodular goiter. Reviewed, dictated and finalized at location A. Y GROWER
--- NOTE | ~2024-05-16 | CT_ITS ---
EXAMINATION: CT brain wo con DATE: 05/16/2024 10:32 INDICATION: Head injury. Fall. TECHNIQUE: Computed tomography (CT) of the head was performed without intravenous contrast. The mA wa s adjusted according to patient size. Iterative reconstruction technique was employed. The dose-lengt h product was 605.33 mGy-cm. COMPARISON: Head CT 05/13/2024 FINDINGS: There is chronic encephalomalacia involving the cerebellum bilaterally. There is chronic en cephalomalacia in right frontal parietal region. There is chronic encephalomalacia involving the righ t insula. There is chronic encephalomalacia in left parietal occipital region subjacent to an old bur r hole. There are changes of bilateral craniotomies. There is chronic encephalomalacia in left fronto parietal region with dystrophic calcifications. 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 T here is a chronic 2.1 x 1.2 cm left parietal parafalcine hyperdense mass, consistent with a meningiom a. There is a chronic 1.4 cm parafalcine mass adjacent to right frontal lobe, consistent with a menin gioma. There is a chronic 2.7 cm hyperdense mass in right temporal occipital region abutting the cere bellar tentorium, which may be a meningioma. There is a chronic 2.6 cm mass involving the left middle skull base and cerebellopontine angle, consistent with a meningioma. There is a left occipital parie damir shunt catheter with tip in body of left lateral ventricle. The lateral ventricles are small witho ut change. There is an embolization coil in right middle skull base. There are changes of suboccipita l craniectomy. There is mild mucosal thickening in the ethmoid sinuses. The mastoid air cells are nor mal. The orbits are normal. IMPRESSION: 1. Multifocal chronic encephalomalacia. 2. Multiple stable meningiomas. 3. Small lateral ventricles without change. Shunt catheter in expected position. Reviewed, dictated and finalized at location A. IC RELATIONS DIRECTOR IMPRESSION: 1. Multifocal chronic encephalomalacia. 2. Multiple stable meningiomas. 3. Small lateral ventricles without change. Shunt catheter in expected position .
[2024-05-16 09:47] VITALS: BP 134/91; PULSE 99; RESP 14; TEMP 36.4; O2SAT 100
--- NOTE | 2024-05-16 11:14 | ED_ITS ---
HPI - General Adult General Chief complaint: Fall Stated complaint: FALL, STRUCK HEAD Time Seen by Provider: 05/16/24 10:12 History of Present Illness HPI narrative: 59-year-old female history encephalopathy presenting after a ground level fall. She slipped on the ice falling backwards and striking her head. She was sent by the halfway for further eval. The patient herself does not know that she fell. She said she was here to get checked out by a doctor. She does not have any pain anywhere. this is her baseline mental status. She has no complaints. Related Data Home Medications Medication Instructions Recorded Confirmed acetaminophen 325 mg tablet 650 mg feeding tube Q6H PRN Pain 08/08/22 04/19/23 (Scale Score 1-3) ferrous sulfate 325 mg (65 mg 325 mg feeding tube DAILY 08/08/22 04/19/23 iron) tablet multivitamin z-vjbbsgyb-vvyaktz 1 tablet PO DAILY 08/08/22 04/19/23 fumarate 18 mg-vitamin K 25 mcg tablet omeprazole 20 mg capsule,delayed 20 mg feeding tube DAILY 08/08/22 04/19/23 release thiamine HCl (vitamin B1) 100 mg 100 mg feeding tube DAILY 08/08/22 04/19/23 tablet trazodone 50 mg tablet 25 mg feeding tube Q6H PRN Anxiety 08/08/22 04/19/23 K-Phos Original See Rx Instructions .Route .COMPLEX 04/19/23 04/19/23 haloperidol lactate 5 mg/mL 5 mg IM DAILY PRN Agitation 04/19/23 04/19/23 injection solution Allergies Allergy/AdvReac Type Severity Reaction Status Date / Time No Known Allergies Allergy Verified 03/02/24 10:13 [facility] Past Medical History Medical History Anemia of chronic disease Cholelithiasis Chronic GERD Depression with anxiety Gastrostomy tube dependent Seizure disorder Uterine fibroid Surgical History Surgical History H/O abdominal surgery History of appendectomy S/P ORIF (open reduction internal fixation) fracture Left elbow S/P CONVENTION SERVICES DIRECTOR shunt Family History Family History Unknown No problems noted. Other Unknown family medical history Social History Social History Social History: The patient is single and disabled. Clyde Matos a sibling is the power immigration attorney listed for the patient and another contact assembler is Nayeli montgomery who is listed as a sibling. Code status full code Smoking status: Unknown if ever smoked Alcohol intake: never Substance use: never Spiritual care concerns: No Exam Narrative: APPEARANCE: No apparent distress. A&O x1 Head: atraumatic. EYES: EOMI, NOSE: Atraumatic NECK: Trachea midline RESPIRATORY: No increased rate of breathing CTAB CARDIOVASCULAR: RRR, ABDOMINAL: Non-distended MUSCULOSKELETAl: No obvious deformities NEURO: Alert. Moving 4/4 extremities to command SKIN:: Warm, dry. Normal color PSYCHIATRIC: Normal affect Course Vital Signs Vital signs: Vital Signs Temperature 97.6 F 05/16/24 09:47 Pulse Rate 99 05/16/24 09:47 Respiratory Rate 14 05/16/24 09:47 Blood Pressure 134/91 H 05/16/24 09:47 Pulse Oximetry 100 05/16/24 09:47 Oxygen Delivery Room Air 05/16/24 09:47 Temperature 97.6 F 05/16/24 09:47 Pulse Rate 99 05/16/24 09:47 Respiratory Rate 14 05/16/24 09:47 Blood Pressure 134/91 H 05/16/24 09:47 Pulse Oximetry 100 05/16/24 09:47 Oxygen Delivery Room Air 05/16/24 09:47 Medical Decision Making MDM Narrative Medical decision making narrative: -Course: 59-year-old female sent from halfway after ground fall. CT head and C-spine negative traumatic injury. Patient is at her baseline mental status with normal vital signs. Normal neurologic exam. Patient discharged back to halfway. Vital Signs Vital Signs: Vital Signs Temperature 97.6 F 05/16/24 09:47 Pulse Rate 99 05/16/24 09:47 Respiratory Rate 14 05/16/24 09:47 Blood Pressure 134/91 H 05/16/24 09:47 Pulse Oximetry 100 05/16/24 09:47 Oxygen Delivery Room Air 05/16/24 09:47 Temperature 97.6 F 05/16/24 09:47 Pulse Rate 99 05/16/24 09:47 Respiratory Rate 14 05/16/24 09:47 Blood Pressure 134/91 H 05/16/24 09:47 Pulse Oximetry 100 05/16/24 09:47 Oxygen Delivery Room Air 05/16/24 09:47 Discharge Plan Discharge Clinical Impression: Fall Patient Disposition: Home, Self-Care Condition: Stable Instructions: Antibiotic Form, Head Injury (ED) Additional Instructions: There were not injuries on your exam today. Please be careful when walking on ice as it can be very slippery. Return if you develop any new or worsening symptoms. Prescriptions: No Action acetaminophen 325 mg Tablet 650 mg feeding tube Q6H PRN (Reason: Pain (Scale Score 1-3)) trazodone 50 mg tablet 25 mg feeding tube Q6H PRN (Reason: Anxiety) thiamine HCl (vitamin B1) 100 mg Tablet 100 mg feeding tube DAILY ferrous sulfate 325 mg (65 mg iron) Tablet 325 mg feeding tube DAILY omeprazole 20 mg capsule,delayed release(DR/EC) 20 mg feeding tube DAILY zjvxmbyu-agu-haep-vitamin K 18 mg iron-25 mcg Tablet 1 tablet PO DAILY haloperidol lactate 5 mg/mL Solution 5 mg IM DAILY PRN (Reason: Agitation) K-Phos Original See Rx Instructions .ROUTE .COMPLEX Rx Instructions: [id number] mg BID levetiracetam [Keppra] 500 mg tablet 500 mg PO BID Qty: 90 1RF Follow-up/Referrals: Sánchez,Sonja Kearney MD [Primary Care Provider] -
--- NOTE | 2024-05-16 11:19 | PC.NURSE ---
Report called to SHARON Herrera at [facility]. All questions answered. Transport arranged and pt. scheduled to leave ED at approximately 1215.
--- NOTE | 2024-05-16 14:33 | PC.NURSE ---
Pt able to use bed sanchez. Pt. urinated 1x. Ivet care performed with soap and water. Dirty depend removed and clean depend applied. Pt. has no other requests at this time.
[2024-05-16 15:10] VITALS: BP 130/85; PULSE 65; RESP 16; O2SAT 100
== END 2024-05-16 15:20 | disposition home or self-care (01) ==
PROVIDERS: Emergency Provider Emergency Medicine; PCP Internal Medicine
DX: S09.90XA Unspecified injury of head, initial encounter (principal); W00.0XXA Fall on same level due to ice and snow, initial encounter; G40.909 Epilepsy, unspecified, not intractable, without status epilepticus; F41.8 Other specified anxiety disorders; K21.9 Gastro-esophageal reflux disease without esophagitis
CPT/HCPCS: 70450; 72125; 99284